=== PATIENT | male | born 1950 | race Caucasian/White ===

== ENCOUNTER 2016-11-10 13:15 | Emergency (ER) | payer OTHER ==
--- NOTE | 2016-11-10 13:50 | REP ---
Clinical: Acute cerebrovascular accident . Comparison: None . Findings: The ventricles, sulci, and cisterns are normal in position and appearance. Amaro-white differentiation is maintained. No acute intracranial hemorrhage, mass/mass effect, pathology or trauma/injury. No evidence for acute infarction. No extra-axial fluid collection. Calvarium is intact. Paranasal sinuses and mastoid air cells are clear. Impression: No evidence for acute intracranial pathology or trauma/injury. Signed by aLwson Serrano MD 11/10/2016 01:41 P
[2016-11-10 14:14] LABS: BASO % 0.7 % (0.0-1.0); EOS # 0.3 K/mm3 (0.0-0.50); EOS % 5.1 % (0.0-3.0); LARGE UNSTAINED CELL # 0.1 K/mm3 (0.0-0.4); LARGE UNSTAINED CELL % 1.9 % (0.0-4.0); LYMPH # 1.2 K/mm3 (1.5-4.5); LYMPH % 21.4 % (24.0-44.0); MEAN CORPUSCULAR HEMOGLOBIN 31.2 pg (27.0-33.0); MEAN CORPUSCULAR HGB CONC 34.8 g/dl (32.0-36.5); MEAN CORPUSCULAR VOLUME 89.8 fl (80.0-96.0); MONO # 0.3 K/mm3 (0.0-0.8); MONO % 5.1 % (0.0-5.0); NEUTROPHILS # 3.8 K/mm3 (1.8-7.7); NEUTROPHILS % 65.8 % (36.0-66.0); PLATELET COUNT, AUTOMATED 156 k/mm3 (150-450); RED CELL DISTRIBUTION WIDTH 12.4 % (11.5-14.5); WHITE BLOOD COUNT 5.8 K/mm3 (4.0-10.0)
[2016-11-10 14:27] LABS: ANION GAP 6 MEQ/L (8-16); BLOOD UREA NITROGEN 16 MG/DL (7-18); CALCIUM LEVEL 8.3 MG/DL (8.8-10.2); CARBON DIOXIDE LEVEL 29 MEQ/L (21-32); CHLORIDE LEVEL 106 MEQ/L (98-107); CREATININE FOR GFR 0.88 MG/DL (0.70-1.30); GLOMERULAR FILTRATION RATE > 60.0 (>49); GLUCOSE, FASTING 102 MG/DL (80-110); POTASSIUM SERUM 3.8 MEQ/L (3.5-5.1); SODIUM LEVEL 141 MEQ/L (136-145)
--- NOTE | 2016-11-10 18:24 | EDDOCDS ---
Physician Documentation [facility] Name: Jeancarlos Giles Age: 66 yrs Sex: Male : 1950 Arrival Date: 11/10/2016 Time: 13:15 Bed 19 Private MD: Gelacio Alvarez M.D. Disposition: 11/10 17:55 Critical Care: Critical care not applicable. pc Disposition: 11/10/16 17:56 Discharged to Home/Self Care. Impression: Paresthesia of skin. - Condition is Stable. - Discharge Instructions: Paresthesia. - Medication Reconciliation, Local Pharmacy Hours form. - Follow up: Gelacio Alvarez MD; When: Call to arrange an appointment; Reason: Continuance of care. - Problem is new. - Symptoms are resolved. HPI: 14:47 This 66 yrs old Male presents to ER via Ambulance with complaints of Weakness.pc 14:47 The history is obtained from the patient. pc 14:48 At approximately 11:30am, while helping lift his disabled 's leg into a chair, he pc felt his left arm go numb, described as pins and needles. He then thought his left upper arm felt swollen, then an "odd feeling" down his left torso and into his left leg. He denied having any chest pain, headache, visual changes, or any other symptom. The symptoms started to resolve after 60 minutes. He called for EMS shortly after that time. He arrives stating his symptoms are now all but gone, with only the feeling that his left arm feels swollen. 14:53 At their worst, the symptoms were moderate. In the emergency department, the symptoms pc are mild. The patient has not experienced similar symptoms in the past. The patient has been recently seen by their primary care provider, for a routine, regularly scheduled appointment. Historical: - Allergies: PENICILLINS; - Home Meds: 1. aspirin 81 mg Oral tab once daily (Last dose: 11/10/2016) 2. vitamin [id number] acid oral Unknown oral once daily 3. meloxicam 15 mg oral tab 1 tab once daily 4. 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 - Social history: Smoking status: Patient states was never smoker of tobacco. No barriers to communication noted, The patient speaks fluent Lebanese, Speaks appropriately for age. - Family history: Not pertinent. - Hospitalizations: : No recent hospitalization is reported. - : The pt / caregiver states he / she is not on anticoagulants. Home medication list is obtained from the patient, Home medication list is obtained from patients' pharmacy. - Exposure Risk Screening:: None identified. - Immunization history:: All immunizations up-to-date. - Social history:: the patient smokes cigarettes the patient does not drink alcohol. ROS: 14:53 All systems are negative except as listed. pc Exam: 14:53 General Appearance: no acute distress, alert. pc 14:53 EENT: normal eye inspection, ears, nose and throat normal, pharynx normal, mucous membranes moist 14:53 Neck: The exam reveals no acute abnormalities. ROM is normal and painless. No nuchal rigidity is noted.. 14:53 Respiratory: no respiratory distress, normal breath sounds. 14:53 CVS: regular pulse rate, regular rhythm, normal S1 and S2, no murmurs, strong peripheral pulses, normal capillary refill. 14:53 Abdomen: soft, non-tender, no organomegaly, normal bowel sounds. 14:53 Back: normal inspection. 14:53 Skin: skin color is normal, warm, dry. 14:53 Extremities: The extremities have a grossly normal appearance, are non-tender, without acute ROM abnormalities. 14:53 Neuro: oriented x 3, cranial nerves normal as tested, no motor deficits, no sensory deficits, Cerebellar function: normal finger to nose testing, Heel to wesley testing is normal, Romberg testing is negative, Deep tendon reflexes are normal, NIHSS score of 0. 14:53 Psych: normal mood. Vital Signs: 13:18 BP 148 / 76; Pulse 83; Resp 20; Temp 96.6(O); Pulse Ox 99% on R/A; Weight 70.31 kg / ead 155.01 lbs (R); Height 5 ft. 4 in. (162.56 cm) (R); Pain 0/10; 13:37 BP 138 / 66 (auto/); ead 13:38 Pulse 78 MON; Pulse Ox 99% on R/A; ead 13:52 BP 130 / 69 (auto/); ead 13:53 Pulse 74 MON; Pulse Ox 98% ; ead 14:07 BP 127 / 69 (auto/); ead 14:08 Pulse 80 MON; Resp 18; Pulse Ox 98% on R/A; ead 14:22 BP 118 / 68 (auto/); ead 14:23 Pulse 72 MON; Pulse Ox 98% ; ead 14:37 BP 118 / 67 (auto/); ead 14:38 Pulse 78 MON; Pulse Ox 98% ; ead 14:52 BP 121 / 69 (auto/); ead 14:53 Pulse 76 MON; Resp 20; Pulse Ox 98% on R/A; ead 14:57 Pulse 76 MON; Pulse Ox 99% ; ead 16:13 BP 125 / 67 (auto/); ead 16:14 Pulse 76 MON; Resp 16; Pulse Ox 99% on R/A; ead 16:28 BP 114 / 68 (auto/); ead 16:28 Pulse 74 MON; Pulse Ox 98% ; ead 16:43 BP 116 / 68 (auto/); ead 16:43 Pulse 76 MON; Resp 18; Pulse Ox 98% on R/A; ead 16:58 BP 122 / 65 (auto/); ead 16:58 Pulse 72 MON; Pulse Ox 98% ; ead 17:13 BP 113 / 60 (auto/); ead 17:13 Pulse 82 MON; Resp 16; Pulse Ox 98% on R/A; ead 17:28 BP 111 / 65 (auto/); ead 17:29 Pulse 78 MON; Pulse Ox 97% ; ead 18:22 BP 117 / 68; Pulse 74; Resp 18; Temp 97.1(O); Pulse Ox 98% on R/A; Pain 0/10; ead 13:18 Body Mass Index 26.61 (70.31 kg, 162.56 cm) ead MDM: 13:27 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 pc 13:27 IV Saline Lock ordered. pc 13:27 CT Head Without Contrast Ordered. EDMS 13:28 ECG WITH READING ER PHYS+CARDIAG ordered. EDMS 13:28 CBC with Diff Ordered. EDMS 13:28 MED Profile Ordered. EDMS 13:28 CIP Ordered. EDMS 13:28 Troponin Ordered. EDMS 14:45 CBC with Diff Reviewed. pc 14:45 MED Profile Reviewed. pc 14:45 CIP Reviewed. pc 14:45 Troponin Reviewed. pc 14:45 CT Head Without Contrast Reviewed. pc 14:46 MRI Screening Tool - Place on chart, inform RN ordered. pc 14:47 -MRA-Brain without contrast Ordered. EDMS 14:47 -MRI-Brain without Ordered. EDMS 14:53 Differential Diagnosis: TIA v CVA. Plan: labs, CT, EKG. Test interpretation: EKG. pc 14:56 MRI Screening Tool - Place on chart, inform RN complete. ead 16:17 Ambulate Patient to Assess Patient Safety ordered. pc 16:32 Redraw CIP &Troponin (put time in details section) ordered. pc 16:32 Repeat EKG (put time details section) ordered. pc 16:33 Financial registration complete. kf3 16:34 Redraw CIP &Troponin (put time in details section) complete. lbd 16:35 Repeat EKG (put time details section) complete. lbd 16:37 ECG WITH READING ER PHYS ordered. EDMS 16:38 CARDIAC MARKER PANEL Ordered. EDMS 17:04 [facility] Payment Agreement was scanned into [employer] and attached to record. kf3 17:37 Test interpretation: EKG. pc 17:55 CARDIAC MARKER PANEL Reviewed. pc 17:55 Data reviewed: old medical records, vital signs, nurses notes, EKG(s), lab test pc results, all radiology studies and available results. Test interpretation: LAB - all labs as ordered have been reviewed, interpreted and considered in the overall management of the clinical presentation; interpreted by Radiologist and personally reviewed, Head CT; no acute disease, MRI - interpreted by Radiologist and personally reviewed, Brain (MRI) - No acute disease Brain (MRA) - Normal. The patient has been re-examined and re-evaluated. The patient's symptoms have resolved after treatment. Physician consultation: Dr. Virginie Fields MD regarding patient's condition, and advises the medications/treatment as provided. Disposition: The historical points, examination findings, and any diagnostic results supporting the provided diagnosis, were discussed with the patient or legal guardian. The need for outpatient follow up with the provider listed on their discharge instructions was discussed. They were encouraged to return to [facility], or the nearest ED, if symptoms worsen/persist, or for any other questions/concerns. EC:53 Rate is 73 beats/min. Rhythm is regular, Normal Sinus Rhythm. QRS [place] is Normal. [place] pc interval is normal. QRS interval is normal. QT interval is normal. No Q waves. T waves are Normal. No ST changes noted. Clinical impression: Normal Sinus Rhythm. 17:37 Rate is 74 beats/min. Rhythm is regular, Normal Sinus Rhythm. QRS [place] is Normal. LA pc interval is normal. QRS interval is normal. QT interval is normal. No Q waves. T waves are Normal. No ST changes noted. Clinical impression: Normal Sinus Rhythm. Signatures: Dispatcher [employer] EDMS Regis Blandon MD MD pc Daly, Linda, [employer] lbd Avni Johnson, Reg Reg kf3 Teagan Salas,RN RN willam The chart was reviewed and I authenticate all verbal orders and agree with the evaluation and treatment provided.Corrections: (The following items were deleted from the chart) 14:56 14:48 At approximately 11:30am, while helping lift his disabled 's leg into a pc chair, he felt his left arm go numb, described as pins and needles pc Attachments: 17:04 [facility] Payment Agreement kf3 [id number]
--- NOTE | 2016-11-10 18:24 | EDDOCDS ---
Nurse's Notes [facility] Name: Jeancarlos Giles Age: 66 yrs Sex: Male : 1950 Arrival Date: 11/10/2016 Time: 13:15 Bed 19 Private MD: Gelacio Alvarez M.D. Diagnosis: Paresthesia of skin Presentation: 11/10 13:18 Presenting complaint: EMS states: left sided tingling, numbness, x 1 hour. report ead negative on stroke scale. denies chest pain/sob. Blood glucose of 120. Denies medical hx. The last date and time the patient was known to be well was was at 12:20 on November 10, 2016. No acute neurological deficit is noted. The patients blood glucose was checked before arriving to the hospital and was found to be normal. Adult Sepsis Screening: The patient does not have new or worsening altered mentation. Patient's respiratory rate is less than 22. Systolic blood pressure is greater than 100. Patient has a qSOFA score of 0- Negative Sepsis Screen. Suicide/Homicide risk assessment- the patient denies having any suicidal and/or homicidal ideations and does not present with any other emotional, behavioral or mental health complaints. Status: Patient is not a patient services coordinator or dependent. Transition of care: patient was not received from another setting of care. 13:18 Method Of Arrival: Ambulance ead 13:18 Acuity: NATHAN Level 3 ead Triage Assessment: 13:18 The onset of the patients symptoms was less than three hours ago. General: Appears in ead no apparent distress, comfortable, well nourished, well groomed, Behavior is appropriate for age, cooperative, pleasant. Pain: Denies pain. The patient is triaged at the bedside. See Assessment in Nurses Notes section of ED record. Neurological: Level of Consciousness is awake, alert, obeys commands, Oriented to person, place, time, Auto Servicer are equal bilaterally Moves all extremities. Full function in left in right hand's) arm(s) leg(s) foot/feet from shoulders down, Speech is normal, Facial symmetry appears normal, pt denies numbness to left side. . Neurological: Denies weakness headache Reports blurred vision dizziness, prior to arrival, reports dizziness has resolved.. Cardiovascular: Chest pain is denied. Respiratory: Airway is patent Respiratory effort is even, unlabored, Denies cough, shortness of breath. GI: Abdomen is non- distended Denies nausea, vomiting, pain. Derm: Skin is pink, warm & dry. Historical: - Allergies: PENICILLINS; - Home Meds: 1. aspirin 81 mg Oral tab once daily (Last dose: 11/10/2016) 2. vitamin [id number] acid oral Unknown oral once daily 3. meloxicam 15 mg oral tab 1 tab once daily 4. 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 - Social history: Smoking status: Patient states was never smoker of tobacco. No barriers to communication noted, The patient speaks fluent Lao, Speaks appropriately for age. - Family history: Not pertinent. - Hospitalizations: : No recent hospitalization is reported. - : The pt / caregiver states he / she is not on anticoagulants. Home medication list is obtained from the patient, Home medication list is obtained from patients' pharmacy. - Exposure Risk Screening:: None identified. - Immunization history:: All immunizations up-to-date. - Social history:: the patient smokes cigarettes the patient does not drink alcohol. Screenin:35 Screening information is obtained from the patient. Fall risk: No risks identified. ead Assistance ADL's: requires no assistance with activities of daily living. Abuse/DV Screen: The patient / caregiver reports he/she is: not in a situation that causes fear, pain or injury. Nutritional screening: No deficits noted. Advance Directives: Currently, there is no health care proxy. There is no active DNR order. There is no living will. There is no Power of Forklift Picker. home support is adequate. Assessment: 14:30 General: Appears in no apparent distress, comfortable, Behavior is appropriate for age, ead cooperative, pleasant. Neurological: Level of Consciousness is awake, alert, obeys commands, Oriented to person, place, time, Moves all extremities. Speech is normal, Facial symmetry appears normal, Reports headache. Cardiovascular: Capillary refill < 3 seconds in bilateral fingers Heart tones S1 S2 present Rhythm is sinus rhythm No ectopy. Chest pain is denied. Respiratory: Airway is patent Respiratory effort is even, unlabored. Respiratory: Breath sounds are clear bilaterally. Denies cough, shortness of breath. GI: Denies nausea, vomiting, pain. Derm: Skin is pink, warm & dry. 16:10 General: Appears in no apparent distress, comfortable, Behavior is appropriate for age, ead cooperative, pleasant. Neurological: Level of Consciousness is awake, alert, obeys commands, Oriented to person, place, time, Reports headache "is letting up". Neurological: Moves all extremities. Speech is normal, Facial symmetry appears normal, denies numbness/tingling. Cardiovascular: Rhythm is sinus rhythm No ectopy. Chest pain is denied. Respiratory: Airway is patent Respiratory effort is even, unlabored. Derm: Skin is pink, warm & dry. 16:40 General: Pt ambulated in hallway without difficulty. Denies weakness/dizziness, denies ead numbness/tingling. Pt returned to room. Call howe within reach, will continue to monitor. Pt updated of plan for repeat EKG and lab work at 1730.. 17:24 General: Appears in no apparent distress, comfortable, Behavior is appropriate for age, ead cooperative. Neurological: Level of Consciousness is awake, alert, obeys commands, Oriented to person, place, time, Moves all extremities. Speech is normal, Facial symmetry appears normal. Respiratory: Airway is patent Respiratory effort is even, unlabored. Derm: Skin is pink, warm & dry. 18:22 General: Appears in no apparent distress, comfortable, Behavior is appropriate for age, ead cooperative, pleasant. Pain: Denies pain. Neurological: Level of Consciousness is awake, alert, obeys commands, Oriented to person, place, time, Moves all extremities. Gait is steady, Speech is normal, Facial symmetry appears normal. Respiratory: Airway is patent Respiratory effort is even, unlabored. Derm: Skin is pink, warm & dry. Vital Signs: 13:18 BP 148 / 76; Pulse 83; Resp 20; Temp 96.6(O); Pulse Ox 99% on R/A; Weight 70.31 kg (R); ead Height 5 ft. 4 in. (162.56 cm) (R); Pain 0/10; 13:37 BP 138 / 66 (auto/); ead 13:38 Pulse 78 MON; Pulse Ox 99% on R/A; ead 13:52 BP 130 / 69 (auto/); ead 13:53 Pulse 74 MON; Pulse Ox 98% ; ead 14:07 BP 127 / 69 (auto/); ead 14:08 Pulse 80 MON; Resp 18; Pulse Ox 98% on R/A; ead 14:22 BP 118 / 68 (auto/); ead 14:23 Pulse 72 MON; Pulse Ox 98% ; ead 14:37 BP 118 / 67 (auto/); ead 14:38 Pulse 78 MON; Pulse Ox 98% ; ead 14:52 BP 121 / 69 (auto/); ead 14:53 Pulse 76 MON; Resp 20; Pulse Ox 98% on R/A; ead 14:57 Pulse 76 MON; Pulse Ox 99% ; ead 16:13 BP 125 / 67 (auto/); ead 16:14 Pulse 76 MON; Resp 16; Pulse Ox 99% on R/A; ead 16:28 BP 114 / 68 (auto/); ead 16:28 Pulse 74 MON; Pulse Ox 98% ; ead 16:43 BP 116 / 68 (auto/); ead 16:43 Pulse 76 MON; Resp 18; Pulse Ox 98% on R/A; ead 16:58 BP 122 / 65 (auto/); ead 16:58 Pulse 72 MON; Pulse Ox 98% ; ead 17:13 BP 113 / 60 (auto/); ead 17:13 Pulse 82 MON; Resp 16; Pulse Ox 98% on R/A; ead 17:28 BP 111 / 65 (auto/); ead 17:29 Pulse 78 MON; Pulse Ox 97% ; ead 18:22 BP 117 / 68; Pulse 74; Resp 18; Temp 97.1(O); Pulse Ox 98% on R/A; Pain 0/10; ead 13:18 Body Mass Index 26.61 (70.31 kg, 162.56 cm) ead Vitals: 13:15 Glucose Measurement D-stick done by EMS. Log In Time N/A - ambulance arrival. ead ED Course: 13:17 Patient visited by Tahira Ortiz, Bunker Worker. lbd 13:17 Gelacio Alvarez is Private Physician. lbd 13:17 Teagan Salas,RN is Primary Nurse. lbd 13:17 Patient moved to Waiting lbd 13:17 Patient moved to 19 lbd 13:18 Regis Blandon MD is Attending Physician. pc 13:22 Triage Initiated ead 13:26 Patient visited by Regis Blandon MD. pc 13:44 Patient visited by Teagan Salas,STEPHEN. ead 13:44 Troponin Sent. ead 13:44 CIP Sent. ead 13:44 MED Profile Sent. ead 13:44 CBC with Diff Sent. ead 13:44 Inserted saline lock: 18 gauge in right antecubital area and blood collected. The ead patient tolerated the procedure well. 14:00 The patient / caregiver is instructed regarding the plan of care and ED course. Patient ead has correct armband on for positive identification. Placed in gown. Bed in low position. Call light in reach. Side rails up X 1. automotive light mechanic on. Pulse ox on. NIBP on. 14:00 EKG done. (by ED staff). Reviewed by Regis Blandon MD. ead 14:27 CT Head Without Contrast Returned. EDMS 14:38 Patient visited by Teagan Salas,RN. ead 14:57 Patient moved to MRI bcj 15:57 Patient visited by Teagan Salas,RN. ead 15:57 Patient moved to 19 ead 16:16 Patient visited by Teagan Salas,STEPHEN. ead 16:33 Patient visited by Teagan Salas,STEPHEN. ead 17:01 Patient name changed from Jeancarlos\\S\\\\S\\Tisha\\S\\ to Jeancarlos\\S\\ \\S\\Tisha. EDMS 17:04 [facility] Payment Agreement was scanned into [employer] and attached to record. kf3 17:20 EKG done. (by ED staff). Reviewed by Regis Blandon MD. jrd 17:24 Patient visited by Teagan Salas,STEPHEN. ead 17:24 CARDIAC MARKER PANEL Sent. ead 17:56 Gelacio Alvarez MD is Referral Physician. pc 18:22 Discontinued lock intact, bleeding controlled, pressure dressing applied, No ead redness/swelling at site. No procedures done that require assistance. Order Results: Lab Order: CBC with Diff; SPEC'M 11/10/16 13:42 Test: WHITE BLOOD COUNT; Value: 5.8; Range: 4.0-10.0; Units: K/mm3; Status: F Test: RED BLOOD COUNT; Value: 4.56; Range: 4.30-6.10; Units: M/mm3; Status: F Test: HEMOGLOBIN; Value: 14.2; Range: 14.0-18.0; Units: g/dl; Status: F Test: HEMATOCRIT; Value: 40.9; Range: 42.0-52.0; Abnormal: Below low normal; Units: %; Status: F Test: MEAN CORPUSCULAR VOLUME; Value: 89.8; Range: 80.0-96.0; Units: fl; Status: F Test: MEAN CORPUSCULAR HEMOGLOBIN; Value: 31.2; Range: 27.0-33.0; Units: pg; Status: F Test: MEAN CORPUSCULAR HGB CONC; Value: 34.8; Range: 32.0-36.5; Units: g/dl; Status: F Test: RED CELL DISTRIBUTION WIDTH; Value: 12.4; Range: 11.5-14.5; Units: %; Status: F Test: PLATELET COUNT, AUTOMATED; Value: 156; Range: 150-450; Units: k/mm3; Status: F Test: NEUTROPHILS %; Value: 65.8; Range: 36.0-66.0; Units: %; Status: F Test: LYMPH %; Value: 21.4; Range: 24.0-44.0; Abnormal: Below low normal; Units: %; Status: F Test: MONO %; Value: 5.1; Range: 0.0-5.0; Abnormal: Above high normal; Units: %; Status: F Test: EOS %; Value: 5.1; Range: 0.0-3.0; Abnormal: Above high normal; Units: %; Status: F Test: BASO %; Value: 0.7; Range: 0.0-1.0; Units: %; Status: F Test: LARGE UNSTAINED CELL %; Value: 1.9; Range: 0.0-4.0; Units: %; Status: F Test: NEUTROPHILS #; Value: 3.8; Range: 1.8-7.7; Units: K/mm3; Status: F Test: LYMPH #; Value: 1.2; Range: 1.5-4.5; Abnormal: Below low normal; Units: K/mm3; Status: F Test: MONO #; Value: 0.3; Range: 0.0-0.8; Units: K/mm3; Status: F Test: EOS #; Value: 0.3; Range: 0.0-0.50; Units: K/mm3; Status: F Test: BASO #; Value: 0.0; Range: 0.0-0.2; Units: K/mm3; Status: F Test: LARGE UNSTAINED CELL #; Value: 0.1; Range: 0.0-0.4; Units: K/mm3; Status: F Lab Order: MED Profile; SPEC'M 11/10/16 13:42 Test: GLUCOSE, FASTING; Value: 102; Range: 80-110; Units: MG/DL; Status: F Test: BLOOD UREA NITROGEN; Value: 16; Range: 7-18; Units: MG/DL; Status: F Test: CREATININE FOR GFR; Value: 0.88; Range: 0.70-1.30; Units: MG/DL; Status: F Test: GLOMERULAR FILTRATION RATE; Value: > 60.0; Range: >49; Status: F Test: SODIUM LEVEL; Value: 141; Range: 136-145; Units: MEQ/L; Status: F Test: POTASSIUM SERUM; Value: 3.8; Range: 3.5-5.1; Units: MEQ/L; Status: F Test: CHLORIDE LEVEL; Value: 106; Range: 98-107; Units: MEQ/L; Status: F Test: CARBON DIOXIDE LEVEL; Value: 29; Range: 21-32; Units: MEQ/L; Status: F Test: ANION GAP; Value: 6; Range: 8-16; Abnormal: Below low normal; Units: MEQ/L; Status: F Test: CALCIUM LEVEL; Value: 8.3; Range: 8.8-10.2; Abnormal: Below low normal; Units: MG/DL; Status: F Test Note: ; Units are mL/min/1.73 m2 Chronic Kidney Disease Staging per NKF: Stage I & II GFR >=60 Normal to Mildly Decreased Stage III GFR 30-59 Moderately Decreased Stage IV GFR 15-29 Severely Decreased Stage V GFR <15 Very Little GFR Left ESRD GFR <15 on ARCHEOLOGIST CLASSICAL Lab Order: CIP; SPEC'M 11/10/16 13:42 Test: CPK CREATINE PHOSPHOKINASE; Value: 51; Range: 39-308; Units: U/L; Status: F Test: CK-MB VALUE MASS; Value: 1.0; Range: 0.0-3.6; Units: NG/ML; Status: F Test: MB/CK RELATIVE INDEX; Value: 1.96; Range: < OR =4; Status: F Test Note: ; DIAGNOSIS CRITERIA MMB ng/ml Relative Index (RI) NON-AMI < or = 5 N/A AMARO ZONE > 5 < or = 4 AMI > 5 > 4 Lab Order: Troponin; [facility] 11/10/16 13:42 Test: TROPONIN I; Value: < 0.02; Range: < 0.10; Units: NG/ML; Status: F Test Note: ; Troponin I Reference Interval for [place] LOCI: 99th Percentile= 0.00-0.045 ng/ml Risk Stratification: <= 0.10 ng/ml Decreased Risk for Adverse Clinical Events. 0.10-1.50 ng/ml Increased Risk for Adverse Clinical Events. Evaluation of additional criterion and/or repeat testing in 2-6 hours is suggested to rule out myocardial damage. >= 1.50 ng/ml Indicative of Myocardial Injury. Lab Order: CARDIAC MARKER PANEL; [facility] 11/10/16 17:23 Test: CPK CREATINE PHOSPHOKINASE; Value: 48; Range: 39-308; Units: U/L; Status: F Test: CK-MB VALUE MASS; Value: 1.0; Range: 0.0-3.6; Units: NG/ML; Status: F Test: MB/CK RELATIVE INDEX; Value: 2.08; Range: < OR =4; Status: F Test: TROPONIN I; Value: < 0.02; Range: < 0.10; Units: NG/ML; Status: F Test Note: ; DIAGNOSIS CRITERIA MMB ng/ml Relative Index (RI) NON-AMI < or = 5 N/A AMARO ZONE > 5 < or = 4 AMI > 5 > 4 Radiology Order: CT Head Without Contrast Test: CT Head Without Contrast REASON FOR EXAMINATION: CVA <4.5hrs; Clinical: Acute cerebrovascular accident .; ; Comparison: None .; ; Findings:; The ventricles, sulci, and cisterns are normal in position and appearance.; Amaro-white differentiation is maintained. No acute intracranial hemorrhage,; mass/mass effect, pathology or trauma/injury. No evidence for acute infarction.; No extra-axial fluid collection. Calvarium is intact. Paranasal sinuses and; mastoid air cells are clear.; ; Impression:; ; No evidence for acute intracranial pathology or trauma/injury.; ; ; Signed by; Lawson Serrano MD 11/10/2016 01:41 P; Outcome: 17:35 CT Study completed. MRI Study completed. ead 17:56 Discharge ordered by Provider. pc 18:23 Discharge Assessment: Patient awake and alert. obeys commands, Oriented to person, ead place and time. patient administered narcotics - no. The following High Risk Discharge criteria are identified: None. Discharged to home ambulatory, with family. Condition: improved. Discharge instructions given to patient, Instructed on discharge instructions, follow up and referral plans. Demonstrated understanding of instructions, Pt was receptive of discharge instructions/ teaching. Property sent home with patient. 18:23 Patient left the ED. ead Signatures: Dispatcher [employer] EDMS Regis Blandon MD MD pc Daly, Linda, Bunker Worker Unit lbd Xander Romero, STEPHEN RN Avni Wood, Reg Reg kf3 Teagan Salas,Maurizio Carrasco RN, HEAD GREASE MAKER HEAD GREASE MAKER jrd MTDD
--- NOTE | 2016-11-11 07:21 | ECGEPIP ---
Stationary ECG Study [facility] - ED Test Date: 2016-11-10 Pat Name: LEA MALAVE Department: Room: - Gender: M Scale Technician: willam : 1950 Requested By: Regis Moctezuma Order Number: [id number] Reading MD: Regis Blandon Measurements Intervals [place] Rate: 73 P: 57 NC: 182 QRS: 12 QRSD: 77 T: 41 QT: 351 QTc: 387 Interpretive Statements SINUS RHYTHM POSSIBLE LAE NO PRIORS Electronically Signed On 11-11-2016 7:21:08 EST by Regis Blandon
--- NOTE | 2016-11-11 07:24 | ECGEPIP ---
Stationary ECG Study [facility] - ED Test Date: 2016-11-10 Pat Name: LEA MALAVE Department: Room: - Gender: M Oriental Medicine Practitioner: JACQUELINE : 1950 Requested By: Regis Moctezuma Order Number: [id number] Reading MD: Regis Blandon Measurements Intervals [place] Rate: 74 P: 50 WI: 157 QRS: 17 QRSD: 78 T: 50 QT: 363 QTc: 405 Interpretive Statements SINUS RHYTHM Electronically Signed On 11-11-2016 7:24:02 EST by Regis Blandon
--- NOTE | 2016-11-11 08:59 | REP ---
MRA BRAIN WITHOUT CONTRAST: HISTORY: Infarction. 3D TOF MR angiography was performed at the level of the [place]. There is no aneurysm or arteriovenous malformation. Mild atherosclerotic disease involves the cavernous internal carotid arteries. Major intracranial vessels are patent. The left vertebral artery is dominant. IMPRESSION: 1. There is no aneurysm or arteriovenous malformation. 2. Atherosclerotic disease as described above. Signed by Daniel Florez MD 11/13/2016 08:41 A
--- NOTE | 2016-11-11 09:05 | REP ---
MRI BRAIN WITHOUT CONTRAST: HISTORY: Infarction. COMPARISON: CT 11/10/2016 Scattered punctate areas of increased signal intensity on T2-weighted images are present in the periventricular and subcortical white matter. This represents small vessel ischemic disease. There is no intraparenchymal hemorrhage, infarct, mass or midline shift. The ventricular system and cortical sulci are dilated consistent with minimal volume loss. There is no extracerebral collection. Mucosal thickening is present in the ethmoid, maxillary and sphenoid sinuses. IMPRESSION: 1. Minimal small vessel ischemic disease. 2. Minimal volume loss. Signed by Daniel Florez MD 11/13/2016 08:42 A
--- NOTE | 2016-11-12 19:24 | EDDOCDS ---
Nurse's Notes [facility] Name: Jeancarlos Malave Age: 66 yrs Sex: Male : 1950 Arrival Date: 11/10/2016 Time: 13:15 Bed 19 Private MD: Gelacio Alvarez M.D. Diagnosis: Paresthesia of skin Presentation: 11/10 13:18 Presenting complaint: EMS states: left sided tingling, numbness, x 1 hour. report ead negative on stroke scale. denies chest pain/sob. Blood glucose of 120. Denies medical hx. The last date and time the patient was known to be well was was at 12:20 on November 10, 2016. No acute neurological deficit is noted. The patients blood glucose was checked before arriving to the hospital and was found to be normal. Adult Sepsis Screening: The patient does not have new or worsening altered mentation. Patient's respiratory rate is less than 22. Systolic blood pressure is greater than 100. Patient has a qSOFA score of 0- Negative Sepsis Screen. Suicide/Homicide risk assessment- the patient denies having any suicidal and/or homicidal ideations and does not present with any other emotional, behavioral or mental health complaints. Status: Patient is not a supervisor self service store or dependent. Transition of care: patient was not received from another setting of care. 13:18 Method Of Arrival: Ambulance ead 13:18 Acuity: NATHAN Level 3 ead Triage Assessment: 13:18 The onset of the patients symptoms was less than three hours ago. General: Appears in ead no apparent distress, comfortable, well nourished, well groomed, Behavior is appropriate for age, cooperative, pleasant. Pain: Denies pain. The patient is triaged at the bedside. See Assessment in Nurses Notes section of ED record. Neurological: Level of Consciousness is awake, alert, obeys commands, Oriented to person, place, time, Brake Drum Molder are equal bilaterally Moves all extremities. Full function in left in right hand's) arm(s) leg(s) foot/feet from shoulders down, Speech is normal, Facial symmetry appears normal, pt denies numbness to left side. . Neurological: Denies weakness headache Reports blurred vision dizziness, prior to arrival, reports dizziness has resolved.. Cardiovascular: Chest pain is denied. Respiratory: Airway is patent Respiratory effort is even, unlabored, Denies cough, shortness of breath. GI: Abdomen is non- distended Denies nausea, vomiting, pain. Derm: Skin is pink, warm & dry. Historical: - Allergies: PENICILLINS; - Home Meds: 1. aspirin 81 mg Oral tab once daily (Last dose: 11/10/2016) 2. vitamin M11-wufxg acid oral Unknown oral once daily 3. meloxicam 15 mg oral tab 1 tab once daily 4. 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 - Social history: Smoking status: Patient states was never smoker of tobacco. No barriers to communication noted, The patient speaks fluent Upper Sorbian, Speaks appropriately for age. - Family history: Not pertinent. - Hospitalizations: : No recent hospitalization is reported. - : The pt / caregiver states he / she is not on anticoagulants. Home medication list is obtained from the patient, Home medication list is obtained from patients' pharmacy. - Exposure Risk Screening:: None identified. - Immunization history:: All immunizations up-to-date. - Social history:: the patient smokes cigarettes the patient does not drink alcohol. Screenin:35 Screening information is obtained from the patient. Fall risk: No risks identified. ead Assistance ADL's: requires no assistance with activities of daily living. Abuse/DV Screen: The patient / caregiver reports he/she is: not in a situation that causes fear, pain or injury. Nutritional screening: No deficits noted. Advance Directives: Currently, there is no health care proxy. There is no active DNR order. There is no living will. There is no Power of Tracing Lathe Set Up Operator. home support is adequate. Assessment: 14:30 General: Appears in no apparent distress, comfortable, Behavior is appropriate for age, ead cooperative, pleasant. Neurological: Level of Consciousness is awake, alert, obeys commands, Oriented to person, place, time, Moves all extremities. Speech is normal, Facial symmetry appears normal, Reports headache. Cardiovascular: Capillary refill < 3 seconds in bilateral fingers Heart tones S1 S2 present Rhythm is sinus rhythm No ectopy. Chest pain is denied. Respiratory: Airway is patent Respiratory effort is even, unlabored. Respiratory: Breath sounds are clear bilaterally. Denies cough, shortness of breath. GI: Denies nausea, vomiting, pain. Derm: Skin is pink, warm & dry. 16:10 General: Appears in no apparent distress, comfortable, Behavior is appropriate for age, ead cooperative, pleasant. Neurological: Level of Consciousness is awake, alert, obeys commands, Oriented to person, place, time, Reports headache "is letting up". Neurological: Moves all extremities. Speech is normal, Facial symmetry appears normal, denies numbness/tingling. Cardiovascular: Rhythm is sinus rhythm No ectopy. Chest pain is denied. Respiratory: Airway is patent Respiratory effort is even, unlabored. Derm: Skin is pink, warm & dry. 16:40 General: Pt ambulated in hallway without difficulty. Denies weakness/dizziness, denies ead numbness/tingling. Pt returned to room. Call howe within reach, will continue to monitor. Pt updated of plan for repeat EKG and lab work at 1730.. 17:24 General: Appears in no apparent distress, comfortable, Behavior is appropriate for age, ead cooperative. Neurological: Level of Consciousness is awake, alert, obeys commands, Oriented to person, place, time, Moves all extremities. Speech is normal, Facial symmetry appears normal. Respiratory: Airway is patent Respiratory effort is even, unlabored. Derm: Skin is pink, warm & dry. 18:22 General: Appears in no apparent distress, comfortable, Behavior is appropriate for age, ead cooperative, pleasant. Pain: Denies pain. Neurological: Level of Consciousness is awake, alert, obeys commands, Oriented to person, place, time, Moves all extremities. Gait is steady, Speech is normal, Facial symmetry appears normal. Respiratory: Airway is patent Respiratory effort is even, unlabored. Derm: Skin is pink, warm & dry. Vital Signs: 13:18 BP 148 / 76; Pulse 83; Resp 20; Temp 96.6(O); Pulse Ox 99% on R/A; Weight 70.31 kg (R); ead Height 5 ft. 4 in. (162.56 cm) (R); Pain 0/10; 13:37 BP 138 / 66 (auto/); ead 13:38 Pulse 78 MON; Pulse Ox 99% on R/A; ead 13:52 BP 130 / 69 (auto/); ead 13:53 Pulse 74 MON; Pulse Ox 98% ; ead 14:07 BP 127 / 69 (auto/); ead 14:08 Pulse 80 MON; Resp 18; Pulse Ox 98% on R/A; ead 14:22 BP 118 / 68 (auto/); ead 14:23 Pulse 72 MON; Pulse Ox 98% ; ead 14:37 BP 118 / 67 (auto/); ead 14:38 Pulse 78 MON; Pulse Ox 98% ; ead 14:52 BP 121 / 69 (auto/); ead 14:53 Pulse 76 MON; Resp 20; Pulse Ox 98% on R/A; ead 14:57 Pulse 76 MON; Pulse Ox 99% ; ead 16:13 BP 125 / 67 (auto/); ead 16:14 Pulse 76 MON; Resp 16; Pulse Ox 99% on R/A; ead 16:28 BP 114 / 68 (auto/); ead 16:28 Pulse 74 MON; Pulse Ox 98% ; ead 16:43 BP 116 / 68 (auto/); ead 16:43 Pulse 76 MON; Resp 18; Pulse Ox 98% on R/A; ead 16:58 BP 122 / 65 (auto/); ead 16:58 Pulse 72 MON; Pulse Ox 98% ; ead 17:13 BP 113 / 60 (auto/); ead 17:13 Pulse 82 MON; Resp 16; Pulse Ox 98% on R/A; ead 17:28 BP 111 / 65 (auto/); ead 17:29 Pulse 78 MON; Pulse Ox 97% ; ead 18:22 BP 117 / 68; Pulse 74; Resp 18; Temp 97.1(O); Pulse Ox 98% on R/A; Pain 0/10; ead 13:18 Body Mass Index 26.61 (70.31 kg, 162.56 cm) ead Vitals: 13:15 Glucose Measurement D-stick done by EMS. Log In Time N/A - ambulance arrival. ead ED Course: 13:17 Patient visited by Tahira Ortiz, Oracle Database Developer. lbd 13:17 Gelacio Alvarez is Private Physician. lbd 13:17 Teagan Salas,RN is Primary Nurse. lbd 13:17 Patient moved to Waiting lbd 13:17 Patient moved to 19 lbd 13:18 Regis Blandon MD is Attending Physician. pc 13:22 Triage Initiated ead 13:26 Patient visited by Regis Blandon MD. pc 13:44 Patient visited by Teagan Salas,STEPHEN. ead 13:44 Troponin Sent. ead 13:44 CIP Sent. ead 13:44 MED Profile Sent. ead 13:44 CBC with Diff Sent. ead 13:44 Inserted saline lock: 18 gauge in right antecubital area and blood collected. The ead patient tolerated the procedure well. 14:00 The patient / caregiver is instructed regarding the plan of care and ED course. Patient ead has correct armband on for positive identification. Placed in gown. Bed in low position. Call light in reach. Side rails up X 1. senior cost analyst on. Pulse ox on. NIBP on. 14:00 EKG done. (by ED staff). Reviewed by Regis Blandon MD. ead 14:27 CT Head Without Contrast Returned. EDMS 14:38 Patient visited by Teagan Salas,RN. ead 14:57 Patient moved to MRI bcj 15:57 Patient visited by Teagan Salas,RN. ead 15:57 Patient moved to 19 ead 16:16 Patient visited by Teagan Salas,RN. ead 16:33 Patient visited by Teagan Salas,STEPHEN. ead 17:01 Patient name changed from Jeancarlos\\S\\\\S\\Tisha\\S\\ to Jeancarlos\\S\\ \\S\\Tisha. EDMS 17:04 [facility] Payment Agreement was scanned into [email or web address] and attached to record. kf3 17:20 EKG done. (by ED staff). Reviewed by Regis Blandon MD. jrd 17:24 Patient visited by Teagan Salas,RN. ead 17:24 CARDIAC MARKER PANEL Sent. ead 17:56 Gelacio Alvarez MD is Referral Physician. pc 18:22 Discontinued lock intact, bleeding controlled, pressure dressing applied, No ead redness/swelling at site. No procedures done that require assistance. 11/11 07:31 EKG-ADULT Returned. EDMS 07:31 ECG WITH READING ER PHYS Returned. EDMS 09:19 -MRA-Brain without contrast Returned. EDMS 09:19 -MRI-Brain without Returned. EDMS Order Results: Lab Order: CBC with Diff; SPEC'M 11/10/16 13:42 Test: WHITE BLOOD COUNT; Value: 5.8; Range: 4.0-10.0; Units: K/mm3; Status: F Test: RED BLOOD COUNT; Value: 4.56; Range: 4.30-6.10; Units: M/mm3; Status: F Test: HEMOGLOBIN; Value: 14.2; Range: 14.0-18.0; Units: g/dl; Status: F Test: HEMATOCRIT; Value: 40.9; Range: 42.0-52.0; Abnormal: Below low normal; Units: %; Status: F Test: MEAN CORPUSCULAR VOLUME; Value: 89.8; Range: 80.0-96.0; Units: fl; Status: F Test: MEAN CORPUSCULAR HEMOGLOBIN; Value: 31.2; Range: 27.0-33.0; Units: pg; Status: F Test: MEAN CORPUSCULAR HGB CONC; Value: 34.8; Range: 32.0-36.5; Units: g/dl; Status: F Test: RED CELL DISTRIBUTION WIDTH; Value: 12.4; Range: 11.5-14.5; Units: %; Status: F Test: PLATELET COUNT, AUTOMATED; Value: 156; Range: 150-450; Units: k/mm3; Status: F Test: NEUTROPHILS %; Value: 65.8; Range: 36.0-66.0; Units: %; Status: F Test: LYMPH %; Value: 21.4; Range: 24.0-44.0; Abnormal: Below low normal; Units: %; Status: F Test: MONO %; Value: 5.1; Range: 0.0-5.0; Abnormal: Above high normal; Units: %; Status: F Test: EOS %; Value: 5.1; Range: 0.0-3.0; Abnormal: Above high normal; Units: %; Status: F Test: BASO %; Value: 0.7; Range: 0.0-1.0; Units: %; Status: F Test: LARGE UNSTAINED CELL %; Value: 1.9; Range: 0.0-4.0; Units: %; Status: F Test: NEUTROPHILS #; Value: 3.8; Range: 1.8-7.7; Units: K/mm3; Status: F Test: LYMPH #; Value: 1.2; Range: 1.5-4.5; Abnormal: Below low normal; Units: K/mm3; Status: F Test: MONO #; Value: 0.3; Range: 0.0-0.8; Units: K/mm3; Status: F Test: EOS #; Value: 0.3; Range: 0.0-0.50; Units: K/mm3; Status: F Test: BASO #; Value: 0.0; Range: 0.0-0.2; Units: K/mm3; Status: F Test: LARGE UNSTAINED CELL #; Value: 0.1; Range: 0.0-0.4; Units: K/mm3; Status: F Lab Order: MED Profile; SPEC'M 11/10/16 13:42 Test: GLUCOSE, FASTING; Value: 102; Range: 80-110; Units: MG/DL; Status: F Test: BLOOD UREA NITROGEN; Value: 16; Range: 7-18; Units: MG/DL; Status: F Test: CREATININE FOR GFR; Value: 0.88; Range: 0.70-1.30; Units: MG/DL; Status: F Test: GLOMERULAR FILTRATION RATE; Value: > 60.0; Range: >49; Status: F Test: SODIUM LEVEL; Value: 141; Range: 136-145; Units: MEQ/L; Status: F Test: POTASSIUM SERUM; Value: 3.8; Range: 3.5-5.1; Units: MEQ/L; Status: F Test: CHLORIDE LEVEL; Value: 106; Range: 98-107; Units: MEQ/L; Status: F Test: CARBON DIOXIDE LEVEL; Value: 29; Range: 21-32; Units: MEQ/L; Status: F Test: ANION GAP; Value: 6; Range: 8-16; Abnormal: Below low normal; Units: MEQ/L; Status: F Test: CALCIUM LEVEL; Value: 8.3; Range: 8.8-10.2; Abnormal: Below low normal; Units: MG/DL; Status: F Test Note: ; Units are mL/min/1.73 m2 Chronic Kidney Disease Staging per NKF: Stage I & II GFR >=60 Normal to Mildly Decreased Stage III GFR 30-59 Moderately Decreased Stage IV GFR 15-29 Severely Decreased Stage V GFR <15 Very Little GFR Left ESRD GFR <15 on COMMERCIAL CENTER MANAGER Lab Order: CIP; [facility] 11/10/16 13:42 Test: CPK CREATINE PHOSPHOKINASE; Value: 51; Range: 39-308; Units: U/L; Status: F Test: CK-MB VALUE MASS; Value: 1.0; Range: 0.0-3.6; Units: NG/ML; Status: F Test: MB/CK RELATIVE INDEX; Value: 1.96; Range: < OR =4; Status: F Test Note: ; DIAGNOSIS CRITERIA MMB ng/ml Relative Index (RI) NON-AMI < or = 5 N/A AMARO ZONE > 5 < or = 4 AMI > 5 > 4 Lab Order: Troponin; [facility] 11/10/16 13:42 Test: TROPONIN I; Value: < 0.02; Range: < 0.10; Units: NG/ML; Status: F Test Note: ; Troponin I Reference Interval for Lumatix LOCI: 99th Percentile= 0.00-0.045 ng/ml Risk Stratification: <= 0.10 ng/ml Decreased Risk for Adverse Clinical Events. 0.10-1.50 ng/ml Increased Risk for Adverse Clinical Events. Evaluation of additional criterion and/or repeat testing in 2-6 hours is suggested to rule out myocardial damage. >= 1.50 ng/ml Indicative of Myocardial Injury. Lab Order: CARDIAC MARKER PANEL; [facility] 11/10/16 17:23 Test: CPK CREATINE PHOSPHOKINASE; Value: 48; Range: 39-308; Units: U/L; Status: F Test: CK-MB VALUE MASS; Value: 1.0; Range: 0.0-3.6; Units: NG/ML; Status: F Test: MB/CK RELATIVE INDEX; Value: 2.08; Range: < OR =4; Status: F Test: TROPONIN I; Value: < 0.02; Range: < 0.10; Units: NG/ML; Status: F Test Note: ; DIAGNOSIS CRITERIA MMB ng/ml Relative Index (RI) NON-AMI < or = 5 N/A AMARO ZONE > 5 < or = 4 AMI > 5 > 4 Radiology Order: CT Head Without Contrast Test: CT Head Without Contrast REASON FOR EXAMINATION: CVA <4.5hrs; Clinical: Acute cerebrovascular accident .; ; Comparison: None .; ; Findings:; The ventricles, sulci, and cisterns are normal in position and appearance.; Amaro-white differentiation is maintained. No acute intracranial hemorrhage,; mass/mass effect, pathology or trauma/injury. No evidence for acute infarction.; No extra-axial fluid collection. Calvarium is intact. Paranasal sinuses and; mastoid air cells are clear.; ; Impression:; ; No evidence for acute intracranial pathology or trauma/injury.; ; ; Signed by; Lawson Serrano MD 11/10/2016 01:41 P; Radiology Order: EKG-ADULT Test: EKG-ADULT REASON FOR EXAMINATION: CVA; Stationary ECG Study; [facility] - ED; ; Test Date: 2016-11-10; Pat Name: JEANCARLOS MALAVE Department:; Room: -; Gender: M Supervisor Metal Fabricating: willam; : 1950 Requested By: Regis Moctezuma; Order Number: [id number] Reading MD: Regis Blandon; Measurements; Intervals [place]; Rate: 73 P: 57; MO: 182 QRS: 12; QRSD: 77 T: 41; QT: 351; QTc: 387; Interpretive Statements; SINUS RHYTHM; POSSIBLE LAE; NO PRIORS; Electronically Signed On 11-11-2016 7:21:08 EST by Regis Blandon; Radiology Order: -MRA-Brain without contrast Test: -MRA-Brain without contrast REASON FOR EXAMINATION: CVA <4.5hrs; MRA BRAIN WITHOUT CONTRAST:; ; HISTORY: Infarction.; ; 3D TOF MR angiography was performed at the level of the [place] of [place].; ; There is no aneurysm or arteriovenous malformation. Mild atherosclerotic disease; involves the cavernous internal carotid arteries. Major intracranial vessels are; patent. The left vertebral artery is dominant.; ; IMPRESSION:; 1. There is no aneurysm or arteriovenous malformation.; 2. Atherosclerotic disease as described above.; ; ; ; Unreviewed; Radiology Order: -MRI-Brain without Test: -MRI-Brain without REASON FOR EXAMINATION: CVA <4.5hrs; MRI BRAIN WITHOUT CONTRAST:; ; HISTORY: Infarction.; ; COMPARISON: CT 11/10/2016; ; Scattered punctate areas of increased signal intensity on T2-weighted images are; present in the periventricular and subcortical white matter. This represents; small vessel ischemic disease. There is no intraparenchymal hemorrhage, infarct,; mass or midline shift. The ventricular system and cortical sulci are dilated; consistent with minimal volume loss. There is no extracerebral collection.; Mucosal thickening is present in the ethmoid, maxillary and sphenoid sinuses.; ; IMPRESSION:; 1. Minimal small vessel ischemic disease.; 2. Minimal volume loss.; ; ; ; Unreviewed; Radiology Order: ECG WITH READING ER PHYS Test: ECG WITH READING ER PHYS REASON FOR EXAMINATION: WEAKNESS(REPEAT EKG AT 5:30); Stationary ECG Study; [facility] - ED; ; Test Date: 2016-11-10; Pat Name: JEANCARLOS MALAVE Department:; Room: -; Gender: Supervisor Metal Fabricating: JACQUELINE; : 1950 Requested By: Regis Moctezuma; Order Number: [id number] Reading MD: Regis Blandon; Measurements; Intervals [place]; Rate: 74 P: 50; MO: 157 QRS: 17; QRSD: 78 T: 50; QT: 363; QTc: 405; Interpretive Statements; SINUS RHYTHM; ; Electronically Signed On 11-11-2016 7:24:02 EST by Regis Blandon; Outcome: 11/10 17:35 CT Study completed. MRI Study completed. ead 17:56 Discharge ordered by Provider. pc 18:23 Discharge Assessment: Patient awake and alert. obeys commands, Oriented to person, ead place and time. patient administered narcotics - no. The following High Risk Discharge criteria are identified: None. Discharged to home ambulatory, with family. Condition: improved. Discharge instructions given to patient, Instructed on discharge instructions, follow up and referral plans. Demonstrated understanding of instructions, Pt was receptive of discharge instructions/ teaching. Property sent home with patient. 18:23 Patient left the ED. ead Signatures: Dispatcher [employer] EDMS Regis Blandon MD MD pc Daly, Linda, Oracle Database Developer Unit lbd Xander Romero, STEPHEN RN Avni Wood, Reg Reg kf3 Teagan SalasRN RN ead Maurizio Lawrence, SUPPORT ASSOCIATE SUPPORT ASSOCIATE jrd Chart Complete MTDD
--- NOTE | 2016-11-12 19:24 | EDDOCDS ---
Physician Documentation [facility] Name: Jeancarlos Giles Age: 66 yrs Sex: Male : 1950 Arrival Date: 11/10/2016 Time: 13:15 Bed 19 Private MD: Gelacio Alvarez M.D. Disposition: 11/10 17:55 Critical Care: Critical care not applicable. pc Disposition: 11/10/16 17:56 Discharged to Home/Self Care. Impression: Paresthesia of skin. - Condition is Stable. - Discharge Instructions: Paresthesia. - Medication Reconciliation, Local Pharmacy Hours form. - Follow up: Gelacio Alvarez MD; When: Call to arrange an appointment; Reason: Continuance of care. - Problem is new. - Symptoms are resolved. HPI: 14:47 This 66 yrs old Male presents to ER via Ambulance with complaints of Weakness.pc 14:47 The history is obtained from the patient. pc 14:48 At approximately 11:30am, while helping lift his disabled 's leg into a chair, he pc felt his left arm go numb, described as pins and needles. He then thought his left upper arm felt swollen, then an "odd feeling" down his left torso and into his left leg. He denied having any chest pain, headache, visual changes, or any other symptom. The symptoms started to resolve after 60 minutes. He called for EMS shortly after that time. He arrives stating his symptoms are now all but gone, with only the feeling that his left arm feels swollen. 14:53 At their worst, the symptoms were moderate. In the emergency department, the symptoms pc are mild. The patient has not experienced similar symptoms in the past. The patient has been recently seen by their primary care provider, for a routine, regularly scheduled appointment. Historical: - Allergies: PENICILLINS; - Home Meds: 1. aspirin 81 mg Oral tab once daily (Last dose: 11/10/2016) 2. vitamin H72-ecukz acid oral Unknown oral once daily 3. meloxicam 15 mg oral tab 1 tab once daily 4. 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 - Social history: Smoking status: Patient states was never smoker of tobacco. No barriers to communication noted, The patient speaks fluent Pakistani, Speaks appropriately for age. - Family history: Not pertinent. - Hospitalizations: : No recent hospitalization is reported. - : The pt / caregiver states he / she is not on anticoagulants. Home medication list is obtained from the patient, Home medication list is obtained from patients' pharmacy. - Exposure Risk Screening:: None identified. - Immunization history:: All immunizations up-to-date. - Social history:: the patient smokes cigarettes the patient does not drink alcohol. ROS: 14:53 All systems are negative except as listed. pc Exam: 14:53 General Appearance: no acute distress, alert. pc 14:53 EENT: normal eye inspection, ears, nose and throat normal, pharynx normal, mucous membranes moist 14:53 Neck: The exam reveals no acute abnormalities. ROM is normal and painless. No nuchal rigidity is noted.. 14:53 Respiratory: no respiratory distress, normal breath sounds. 14:53 CVS: regular pulse rate, regular rhythm, normal S1 and S2, no murmurs, strong peripheral pulses, normal capillary refill. 14:53 Abdomen: soft, non-tender, no organomegaly, normal bowel sounds. 14:53 Back: normal inspection. 14:53 Skin: skin color is normal, warm, dry. 14:53 Extremities: The extremities have a grossly normal appearance, are non-tender, without acute ROM abnormalities. 14:53 Neuro: oriented x 3, cranial nerves normal as tested, no motor deficits, no sensory deficits, Cerebellar function: normal finger to nose testing, Heel to wesley testing is normal, Romberg testing is negative, Deep tendon reflexes are normal, NIHSS score of 0. 14:53 Psych: normal mood. Vital Signs: 13:18 BP 148 / 76; Pulse 83; Resp 20; Temp 96.6(O); Pulse Ox 99% on R/A; Weight 70.31 kg / ead 155.01 lbs (R); Height 5 ft. 4 in. (162.56 cm) (R); Pain 0/10; 13:37 BP 138 / 66 (auto/); ead 13:38 Pulse 78 MON; Pulse Ox 99% on R/A; ead 13:52 BP 130 / 69 (auto/); ead 13:53 Pulse 74 MON; Pulse Ox 98% ; ead 14:07 BP 127 / 69 (auto/); ead 14:08 Pulse 80 MON; Resp 18; Pulse Ox 98% on R/A; ead 14:22 BP 118 / 68 (auto/); ead 14:23 Pulse 72 MON; Pulse Ox 98% ; ead 14:37 BP 118 / 67 (auto/); ead 14:38 Pulse 78 MON; Pulse Ox 98% ; ead 14:52 BP 121 / 69 (auto/); ead 14:53 Pulse 76 MON; Resp 20; Pulse Ox 98% on R/A; ead 14:57 Pulse 76 MON; Pulse Ox 99% ; ead 16:13 BP 125 / 67 (auto/); ead 16:14 Pulse 76 MON; Resp 16; Pulse Ox 99% on R/A; ead 16:28 BP 114 / 68 (auto/); ead 16:28 Pulse 74 MON; Pulse Ox 98% ; ead 16:43 BP 116 / 68 (auto/); ead 16:43 Pulse 76 MON; Resp 18; Pulse Ox 98% on R/A; ead 16:58 BP 122 / 65 (auto/); ead 16:58 Pulse 72 MON; Pulse Ox 98% ; ead 17:13 BP 113 / 60 (auto/); ead 17:13 Pulse 82 MON; Resp 16; Pulse Ox 98% on R/A; ead 17:28 BP 111 / 65 (auto/); ead 17:29 Pulse 78 MON; Pulse Ox 97% ; ead 18:22 BP 117 / 68; Pulse 74; Resp 18; Temp 97.1(O); Pulse Ox 98% on R/A; Pain 0/10; ead 13:18 Body Mass Index 26.61 (70.31 kg, 162.56 cm) ead MDM: 13:27 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 pc 13:27 IV Saline Lock ordered. pc 13:27 CT Head Without Contrast Ordered. EDMS 13:28 ECG WITH READING ER PHYS+CARDIAG ordered. EDMS 13:28 CBC with Diff Ordered. EDMS 13:28 MED Profile Ordered. EDMS 13:28 CIP Ordered. EDMS 13:28 Troponin Ordered. EDMS 14:45 CBC with Diff Reviewed. pc 14:45 MED Profile Reviewed. pc 14:45 CIP Reviewed. pc 14:45 Troponin Reviewed. pc 14:45 CT Head Without Contrast Reviewed. pc 14:46 MRI Screening Tool - Place on chart, inform RN ordered. pc 14:47 -MRA-Brain without contrast Ordered. EDMS 14:47 -MRI-Brain without Ordered. EDMS 14:53 Differential Diagnosis: TIA v CVA. Plan: labs, CT, EKG. Test interpretation: EKG. pc 14:56 MRI Screening Tool - Place on chart, inform RN complete. ead 16:17 Ambulate Patient to Assess Patient Safety ordered. pc 16:32 Redraw CIP &Troponin (put time in details section) ordered. pc 16:32 Repeat EKG (put time details section) ordered. pc 16:33 Financial registration complete. kf3 16:34 Redraw CIP &Troponin (put time in details section) complete. lbd 16:35 Repeat EKG (put time details section) complete. lbd 16:37 ECG WITH READING ER PHYS ordered. EDMS 16:38 CARDIAC MARKER PANEL Ordered. EDMS 17:04 [facility] Payment Agreement was scanned into [employer] and attached to record. kf3 17:37 Test interpretation: EKG. pc 17:55 CARDIAC MARKER PANEL Reviewed. pc 17:55 Data reviewed: old medical records, vital signs, nurses notes, EKG(s), lab test pc results, all radiology studies and available results. Test interpretation: LAB - all labs as ordered have been reviewed, interpreted and considered in the overall management of the clinical presentation; interpreted by Radiologist and personally reviewed, Head CT; no acute disease, MRI - interpreted by Radiologist and personally reviewed, Brain (MRI) - No acute disease Brain (MRA) - Normal. The patient has been re-examined and re-evaluated. The patient's symptoms have resolved after treatment. Physician consultation: Dr. Virginie Fields MD regarding patient's condition, and advises the medications/treatment as provided. Disposition: The historical points, examination findings, and any diagnostic results supporting the provided diagnosis, were discussed with the patient or legal guardian. The need for outpatient follow up with the provider listed on their discharge instructions was discussed. They were encouraged to return to [facility] [place], or the nearest ED, if symptoms worsen/persist, or for any other questions/concerns. EC:53 Rate is 73 beats/min. Rhythm is regular, Normal Sinus Rhythm. QRS [place] is Normal. ND pc interval is normal. QRS interval is normal. QT interval is normal. No Q waves. T waves are Normal. No ST changes noted. Clinical impression: Normal Sinus Rhythm. 17:37 Rate is 74 beats/min. Rhythm is regular, Normal Sinus Rhythm. QRS [place] is Normal. ND pc interval is normal. QRS interval is normal. QT interval is normal. No Q waves. T waves are Normal. No ST changes noted. Clinical impression: Normal Sinus Rhythm. Signatures: Dispatcher [employer] EDMS Regis Blandon MD MD pc Daly, Linda, Slot Host Unit lbd Avni Johnson, Reg Reg kf3 Teagan Salas,RN RN earony The chart was reviewed and I authenticate all verbal orders and agree with the evaluation and treatment provided.Corrections: (The following items were deleted from the chart) 14:56 14:48 At approximately 11:30am, while helping lift his disabled 's leg into a pc chair, he felt his left arm go numb, described as pins and needles pc Attachments: 17:04 [facility] Payment Agreement kf3 Chart Complete MTDD
--- NOTE | 2016-11-12 19:24 | EDDOCDS ---
Physician Documentation [facility] Name: Jeancarlos Giles Age: 66 yrs Sex: Male : 1950 Arrival Date: 11/10/2016 Time: 13:15 Bed 19 Private MD: Gelacio Alvarez M.D. Disposition: 11/10 17:55 Critical Care: Critical care not applicable. pc Disposition: 11/10/16 17:56 Discharged to Home/Self Care. Impression: Paresthesia of skin. - Condition is Stable. - Discharge Instructions: Paresthesia. - Medication Reconciliation, Local Pharmacy Hours form. - Follow up: Gelacio Alvarez MD; When: Call to arrange an appointment; Reason: Continuance of care. - Problem is new. - Symptoms are resolved. HPI: 14:47 This 66 yrs old Male presents to ER via Ambulance with complaints of Weakness.pc 14:47 The history is obtained from the patient. pc 14:48 At approximately 11:30am, while helping lift his disabled 's leg into a chair, he pc felt his left arm go numb, described as pins and needles. He then thought his left upper arm felt swollen, then an "odd feeling" down his left torso and into his left leg. He denied having any chest pain, headache, visual changes, or any other symptom. The symptoms started to resolve after 60 minutes. He called for EMS shortly after that time. He arrives stating his symptoms are now all but gone, with only the feeling that his left arm feels swollen. 14:53 At their worst, the symptoms were moderate. In the emergency department, the symptoms pc are mild. The patient has not experienced similar symptoms in the past. The patient has been recently seen by their primary care provider, for a routine, regularly scheduled appointment. Historical: - Allergies: PENICILLINS; - Home Meds: 1. aspirin 81 mg Oral tab once daily (Last dose: 11/10/2016) 2. vitamin B54-iwswg acid oral Unknown oral once daily 3. meloxicam 15 mg oral tab 1 tab once daily 4. 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 - Social history: Smoking status: Patient states was never smoker of tobacco. No barriers to communication noted, The patient speaks fluent [place], Speaks appropriately for age. - Family history: Not pertinent. - Hospitalizations: : No recent hospitalization is reported. - : The pt / caregiver states he / she is not on anticoagulants. Home medication list is obtained from the patient, Home medication list is obtained from patients' pharmacy. - Exposure Risk Screening:: None identified. - Immunization history:: All immunizations up-to-date. - Social history:: the patient smokes cigarettes the patient does not drink alcohol. ROS: 14:53 All systems are negative except as listed. pc Exam: 14:53 General Appearance: no acute distress, alert. pc 14:53 EENT: normal eye inspection, ears, nose and throat normal, pharynx normal, mucous membranes moist 14:53 Neck: The exam reveals no acute abnormalities. ROM is normal and painless. No nuchal rigidity is noted.. 14:53 Respiratory: no respiratory distress, normal breath sounds. 14:53 CVS: regular pulse rate, regular rhythm, normal S1 and S2, no murmurs, strong peripheral pulses, normal capillary refill. 14:53 Abdomen: soft, non-tender, no organomegaly, normal bowel sounds. 14:53 Back: normal inspection. 14:53 Skin: skin color is normal, warm, dry. 14:53 Extremities: The extremities have a grossly normal appearance, are non-tender, without acute ROM abnormalities. 14:53 Neuro: oriented x 3, cranial nerves normal as tested, no motor deficits, no sensory deficits, Cerebellar function: normal finger to nose testing, Heel to wesley testing is normal, Romberg testing is negative, Deep tendon reflexes are normal, NIHSS score of 0. 14:53 Psych: normal mood. Vital Signs: 13:18 BP 148 / 76; Pulse 83; Resp 20; Temp 96.6(O); Pulse Ox 99% on R/A; Weight 70.31 kg / ead 155.01 lbs (R); Height 5 ft. 4 in. (162.56 cm) (R); Pain 0/10; 13:37 BP 138 / 66 (auto/); ead 13:38 Pulse 78 MON; Pulse Ox 99% on R/A; ead 13:52 BP 130 / 69 (auto/); ead 13:53 Pulse 74 MON; Pulse Ox 98% ; ead 14:07 BP 127 / 69 (auto/); ead 14:08 Pulse 80 MON; Resp 18; Pulse Ox 98% on R/A; ead 14:22 BP 118 / 68 (auto/); ead 14:23 Pulse 72 MON; Pulse Ox 98% ; ead 14:37 BP 118 / 67 (auto/); ead 14:38 Pulse 78 MON; Pulse Ox 98% ; ead 14:52 BP 121 / 69 (auto/); ead 14:53 Pulse 76 MON; Resp 20; Pulse Ox 98% on R/A; ead 14:57 Pulse 76 MON; Pulse Ox 99% ; ead 16:13 BP 125 / 67 (auto/); ead 16:14 Pulse 76 MON; Resp 16; Pulse Ox 99% on R/A; ead 16:28 BP 114 / 68 (auto/); ead 16:28 Pulse 74 MON; Pulse Ox 98% ; ead 16:43 BP 116 / 68 (auto/); ead 16:43 Pulse 76 MON; Resp 18; Pulse Ox 98% on R/A; ead 16:58 BP 122 / 65 (auto/); ead 16:58 Pulse 72 MON; Pulse Ox 98% ; ead 17:13 BP 113 / 60 (auto/); ead 17:13 Pulse 82 MON; Resp 16; Pulse Ox 98% on R/A; ead 17:28 BP 111 / 65 (auto/); ead 17:29 Pulse 78 MON; Pulse Ox 97% ; ead 18:22 BP 117 / 68; Pulse 74; Resp 18; Temp 97.1(O); Pulse Ox 98% on R/A; Pain 0/10; ead 13:18 Body Mass Index 26.61 (70.31 kg, 162.56 cm) ead MDM: 13:27 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 pc 13:27 IV Saline Lock ordered. pc 13:27 CT Head Without Contrast Ordered. EDMS 13:28 ECG WITH READING ER PHYS+CARDIAG ordered. EDMS 13:28 CBC with Diff Ordered. EDMS 13:28 MED Profile Ordered. EDMS 13:28 CIP Ordered. EDMS 13:28 Troponin Ordered. EDMS 14:45 CBC with Diff Reviewed. pc 14:45 MED Profile Reviewed. pc 14:45 CIP Reviewed. pc 14:45 Troponin Reviewed. pc 14:45 CT Head Without Contrast Reviewed. pc 14:46 MRI Screening Tool - Place on chart, inform RN ordered. pc 14:47 -MRA-Brain without contrast Ordered. EDMS 14:47 -MRI-Brain without Ordered. EDMS 14:53 Differential Diagnosis: TIA v CVA. Plan: labs, CT, EKG. Test interpretation: EKG. pc 14:56 MRI Screening Tool - Place on chart, inform RN complete. ead 16:17 Ambulate Patient to Assess Patient Safety ordered. pc 16:32 Redraw CIP &Troponin (put time in details section) ordered. pc 16:32 Repeat EKG (put time details section) ordered. pc 16:33 Financial registration complete. kf3 16:34 Redraw CIP &Troponin (put time in details section) complete. lbd 16:35 Repeat EKG (put time details section) complete. lbd 16:37 ECG WITH READING ER PHYS ordered. EDMS 16:38 CARDIAC MARKER PANEL Ordered. EDMS 17:04 [facility] Payment Agreement was scanned into [employer] and attached to record. kf3 17:37 Test interpretation: EKG. pc 17:55 CARDIAC MARKER PANEL Reviewed. pc 17:55 Data reviewed: old medical records, vital signs, nurses notes, EKG(s), lab test pc results, all radiology studies and available results. Test interpretation: LAB - all labs as ordered have been reviewed, interpreted and considered in the overall management of the clinical presentation; interpreted by Radiologist and personally reviewed, Head CT; no acute disease, MRI - interpreted by Radiologist and personally reviewed, Brain (MRI) - No acute disease Brain (MRA) - Normal. The patient has been re-examined and re-evaluated. The patient's symptoms have resolved after treatment. Physician consultation: Dr. Virginie Fields MD regarding patient's condition, and advises the medications/treatment as provided. Disposition: The historical points, examination findings, and any diagnostic results supporting the provided diagnosis, were discussed with the patient or legal guardian. The need for outpatient follow up with the provider listed on their discharge instructions was discussed. They were encouraged to return to [facility], or the nearest ED, if symptoms worsen/persist, or for any other questions/concerns. EC:53 Rate is 73 beats/min. Rhythm is regular, Normal Sinus Rhythm. QRS [place] is Normal. [place] pc interval is normal. QRS interval is normal. QT interval is normal. No Q waves. T waves are Normal. No ST changes noted. Clinical impression: Normal Sinus Rhythm. 17:37 Rate is 74 beats/min. Rhythm is regular, Normal Sinus Rhythm. QRS [place] is Normal. AL pc interval is normal. QRS interval is normal. QT interval is normal. No Q waves. T waves are Normal. No ST changes noted. Clinical impression: Normal Sinus Rhythm. Signatures: Dispatcher [employer] EDMS Regis Blandon MD MD pc Daly, Linda, Educational Director Unit lbd Avni Johnson, Reg Reg kf3 Teagan Salas,RN RN earony The chart was reviewed and I authenticate all verbal orders and agree with the evaluation and treatment provided.Corrections: (The following items were deleted from the chart) 14:56 14:48 At approximately 11:30am, while helping lift his disabled 's leg into a pc chair, he felt his left arm go numb, described as pins and needles pc Attachments: 17:04 [facility] Payment Agreement kf3 Chart Complete MTDD
--- NOTE | 2016-11-12 22:21 | EDDOCDS ---
Nurse's Notes [facility] Name: Jeancarlos Malave Age: 66 yrs Sex: Male : 1950 Arrival Date: 11/10/2016 Time: 13:15 Bed 19 Private MD: Gelacio Alvarez M.D. Diagnosis: Paresthesia of skin Presentation: 11/10 13:18 Presenting complaint: EMS states: left sided tingling, numbness, x 1 hour. report ead negative on stroke scale. denies chest pain/sob. Blood glucose of 120. Denies medical hx. The last date and time the patient was known to be well was was at 12:20 on November 10, 2016. No acute neurological deficit is noted. The patients blood glucose was checked before arriving to the hospital and was found to be normal. Adult Sepsis Screening: The patient does not have new or worsening altered mentation. Patient's respiratory rate is less than 22. Systolic blood pressure is greater than 100. Patient has a qSOFA score of 0- Negative Sepsis Screen. Suicide/Homicide risk assessment- the patient denies having any suicidal and/or homicidal ideations and does not present with any other emotional, behavioral or mental health complaints. Status: Patient is not a service line layer or dependent. Transition of care: patient was not received from another setting of care. 13:18 Method Of Arrival: Ambulance ead 13:18 Acuity: NATHAN Level 3 ead Triage Assessment: 13:18 The onset of the patients symptoms was less than three hours ago. General: Appears in ead no apparent distress, comfortable, well nourished, well groomed, Behavior is appropriate for age, cooperative, pleasant. Pain: Denies pain. The patient is triaged at the bedside. See Assessment in Nurses Notes section of ED record. Neurological: Level of Consciousness is awake, alert, obeys commands, Oriented to person, place, time, Language And Literature Division Chair are equal bilaterally Moves all extremities. Full function in left in right hand's) arm(s) leg(s) foot/feet from shoulders down, Speech is normal, Facial symmetry appears normal, pt denies numbness to left side. . Neurological: Denies weakness headache Reports blurred vision dizziness, prior to arrival, reports dizziness has resolved.. Cardiovascular: Chest pain is denied. Respiratory: Airway is patent Respiratory effort is even, unlabored, Denies cough, shortness of breath. GI: Abdomen is non- distended Denies nausea, vomiting, pain. Derm: Skin is pink, warm & dry. Historical: - Allergies: PENICILLINS; - Home Meds: 1. aspirin 81 mg Oral tab once daily (Last dose: 11/10/2016) 2. vitamin Z68-bqsfc acid oral Unknown oral once daily 3. meloxicam 15 mg oral tab 1 tab once daily 4. 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 - Social history: Smoking status: Patient states was never smoker of tobacco. No barriers to communication noted, The patient speaks fluent Yi, Speaks appropriately for age. - Family history: Not pertinent. - Hospitalizations: : No recent hospitalization is reported. - : The pt / caregiver states he / she is not on anticoagulants. Home medication list is obtained from the patient, Home medication list is obtained from patients' pharmacy. - Exposure Risk Screening:: None identified. - Immunization history:: All immunizations up-to-date. - Social history:: the patient smokes cigarettes the patient does not drink alcohol. Screenin:35 Screening information is obtained from the patient. Fall risk: No risks identified. ead Assistance ADL's: requires no assistance with activities of daily living. Abuse/DV Screen: The patient / caregiver reports he/she is: not in a situation that causes fear, pain or injury. Nutritional screening: No deficits noted. Advance Directives: Currently, there is no health care proxy. There is no active DNR order. There is no living will. There is no Power of Clinical Technologist. home support is adequate. Assessment: 14:30 General: Appears in no apparent distress, comfortable, Behavior is appropriate for age, ead cooperative, pleasant. Neurological: Level of Consciousness is awake, alert, obeys commands, Oriented to person, place, time, Moves all extremities. Speech is normal, Facial symmetry appears normal, Reports headache. Cardiovascular: Capillary refill < 3 seconds in bilateral fingers Heart tones S1 S2 present Rhythm is sinus rhythm No ectopy. Chest pain is denied. Respiratory: Airway is patent Respiratory effort is even, unlabored. Respiratory: Breath sounds are clear bilaterally. Denies cough, shortness of breath. GI: Denies nausea, vomiting, pain. Derm: Skin is pink, warm & dry. 16:10 General: Appears in no apparent distress, comfortable, Behavior is appropriate for age, ead cooperative, pleasant. Neurological: Level of Consciousness is awake, alert, obeys commands, Oriented to person, place, time, Reports headache "is letting up". Neurological: Moves all extremities. Speech is normal, Facial symmetry appears normal, denies numbness/tingling. Cardiovascular: Rhythm is sinus rhythm No ectopy. Chest pain is denied. Respiratory: Airway is patent Respiratory effort is even, unlabored. Derm: Skin is pink, warm & dry. 16:40 General: Pt ambulated in hallway without difficulty. Denies weakness/dizziness, denies ead numbness/tingling. Pt returned to room. Call howe within reach, will continue to monitor. Pt updated of plan for repeat EKG and lab work at 1730.. 17:24 General: Appears in no apparent distress, comfortable, Behavior is appropriate for age, ead cooperative. Neurological: Level of Consciousness is awake, alert, obeys commands, Oriented to person, place, time, Moves all extremities. Speech is normal, Facial symmetry appears normal. Respiratory: Airway is patent Respiratory effort is even, unlabored. Derm: Skin is pink, warm & dry. 18:22 General: Appears in no apparent distress, comfortable, Behavior is appropriate for age, ead cooperative, pleasant. Pain: Denies pain. Neurological: Level of Consciousness is awake, alert, obeys commands, Oriented to person, place, time, Moves all extremities. Gait is steady, Speech is normal, Facial symmetry appears normal. Respiratory: Airway is patent Respiratory effort is even, unlabored. Derm: Skin is pink, warm & dry. Vital Signs: 13:18 BP 148 / 76; Pulse 83; Resp 20; Temp 96.6(O); Pulse Ox 99% on R/A; Weight 70.31 kg (R); ead Height 5 ft. 4 in. (162.56 cm) (R); Pain 0/10; 13:37 BP 138 / 66 (auto/); ead 13:38 Pulse 78 MON; Pulse Ox 99% on R/A; ead 13:52 BP 130 / 69 (auto/); ead 13:53 Pulse 74 MON; Pulse Ox 98% ; ead 14:07 BP 127 / 69 (auto/); ead 14:08 Pulse 80 MON; Resp 18; Pulse Ox 98% on R/A; ead 14:22 BP 118 / 68 (auto/); ead 14:23 Pulse 72 MON; Pulse Ox 98% ; ead 14:37 BP 118 / 67 (auto/); ead 14:38 Pulse 78 MON; Pulse Ox 98% ; ead 14:52 BP 121 / 69 (auto/); ead 14:53 Pulse 76 MON; Resp 20; Pulse Ox 98% on R/A; ead 14:57 Pulse 76 MON; Pulse Ox 99% ; ead 16:13 BP 125 / 67 (auto/); ead 16:14 Pulse 76 MON; Resp 16; Pulse Ox 99% on R/A; ead 16:28 BP 114 / 68 (auto/); ead 16:28 Pulse 74 MON; Pulse Ox 98% ; ead 16:43 BP 116 / 68 (auto/); ead 16:43 Pulse 76 MON; Resp 18; Pulse Ox 98% on R/A; ead 16:58 BP 122 / 65 (auto/); ead 16:58 Pulse 72 MON; Pulse Ox 98% ; ead 17:13 BP 113 / 60 (auto/); ead 17:13 Pulse 82 MON; Resp 16; Pulse Ox 98% on R/A; ead 17:28 BP 111 / 65 (auto/); ead 17:29 Pulse 78 MON; Pulse Ox 97% ; ead 18:22 BP 117 / 68; Pulse 74; Resp 18; Temp 97.1(O); Pulse Ox 98% on R/A; Pain 0/10; ead 13:18 Body Mass Index 26.61 (70.31 kg, 162.56 cm) ead Vitals: 13:15 Glucose Measurement D-stick done by EMS. Log In Time N/A - ambulance arrival. ead ED Course: 13:17 Patient visited by Tahira Ortiz, Ip Litigation Paralegal. lbd 13:17 Gelacio Alvarez is Private Physician. lbd 13:17 Teagan Salas,RN is Primary Nurse. lbd 13:17 Patient moved to Waiting lbd 13:17 Patient moved to 19 lbd 13:18 Regis Blandon MD is Attending Physician. pc 13:22 Triage Initiated ead 13:26 Patient visited by Regis Blandon MD. pc 13:44 Patient visited by Teagan Salas,STEPHEN. ead 13:44 Troponin Sent. ead 13:44 CIP Sent. ead 13:44 MED Profile Sent. ead 13:44 CBC with Diff Sent. ead 13:44 Inserted saline lock: 18 gauge in right antecubital area and blood collected. The ead patient tolerated the procedure well. 14:00 The patient / caregiver is instructed regarding the plan of care and ED course. Patient ead has correct armband on for positive identification. Placed in gown. Bed in low position. Call light in reach. Side rails up X 1. compensation advisor on. Pulse ox on. NIBP on. 14:00 EKG done. (by ED staff). Reviewed by Regis Blandon MD. ead 14:27 CT Head Without Contrast Returned. EDMS 14:38 Patient visited by Teagan Salas,RN. ead 14:57 Patient moved to MRI bcj 15:57 Patient visited by Teagan Salas,RN. ead 15:57 Patient moved to 19 ead 16:16 Patient visited by Teagan Salas,RN. ead 16:33 Patient visited by Teagan Salas,STEPHEN. ead 17:01 Patient name changed from Jeancarlos\\S\\\\S\\Tisha\\S\\ to Jeancarlos\\S\\ \\S\\Tisha. EDMS 17:04 [facility] Payment Agreement was scanned into [employer] and attached to record. kf3 17:20 EKG done. (by ED staff). Reviewed by Rgeis Blandon MD. jrd 17:24 Patient visited by Teagan Salas,RN. ead 17:24 CARDIAC MARKER PANEL Sent. ead 17:56 Gelacio Alvarez MD is Referral Physician. pc 18:22 Discontinued lock intact, bleeding controlled, pressure dressing applied, No ead redness/swelling at site. No procedures done that require assistance. 11/11 07:31 EKG-ADULT Returned. EDMS 07:31 ECG WITH READING ER PHYS Returned. EDMS 09:19 -MRA-Brain without contrast Returned. EDMS 09:19 -MRI-Brain without Returned. EDMS Order Results: Lab Order: CBC with Diff; SPEC'M 11/10/16 13:42 Test: WHITE BLOOD COUNT; Value: 5.8; Range: 4.0-10.0; Units: K/mm3; Status: F Test: RED BLOOD COUNT; Value: 4.56; Range: 4.30-6.10; Units: M/mm3; Status: F Test: HEMOGLOBIN; Value: 14.2; Range: 14.0-18.0; Units: g/dl; Status: F Test: HEMATOCRIT; Value: 40.9; Range: 42.0-52.0; Abnormal: Below low normal; Units: %; Status: F Test: MEAN CORPUSCULAR VOLUME; Value: 89.8; Range: 80.0-96.0; Units: fl; Status: F Test: MEAN CORPUSCULAR HEMOGLOBIN; Value: 31.2; Range: 27.0-33.0; Units: pg; Status: F Test: MEAN CORPUSCULAR HGB CONC; Value: 34.8; Range: 32.0-36.5; Units: g/dl; Status: F Test: RED CELL DISTRIBUTION WIDTH; Value: 12.4; Range: 11.5-14.5; Units: %; Status: F Test: PLATELET COUNT, AUTOMATED; Value: 156; Range: 150-450; Units: k/mm3; Status: F Test: NEUTROPHILS %; Value: 65.8; Range: 36.0-66.0; Units: %; Status: F Test: LYMPH %; Value: 21.4; Range: 24.0-44.0; Abnormal: Below low normal; Units: %; Status: F Test: MONO %; Value: 5.1; Range: 0.0-5.0; Abnormal: Above high normal; Units: %; Status: F Test: EOS %; Value: 5.1; Range: 0.0-3.0; Abnormal: Above high normal; Units: %; Status: F Test: BASO %; Value: 0.7; Range: 0.0-1.0; Units: %; Status: F Test: LARGE UNSTAINED CELL %; Value: 1.9; Range: 0.0-4.0; Units: %; Status: F Test: NEUTROPHILS #; Value: 3.8; Range: 1.8-7.7; Units: K/mm3; Status: F Test: LYMPH #; Value: 1.2; Range: 1.5-4.5; Abnormal: Below low normal; Units: K/mm3; Status: F Test: MONO #; Value: 0.3; Range: 0.0-0.8; Units: K/mm3; Status: F Test: EOS #; Value: 0.3; Range: 0.0-0.50; Units: K/mm3; Status: F Test: BASO #; Value: 0.0; Range: 0.0-0.2; Units: K/mm3; Status: F Test: LARGE UNSTAINED CELL #; Value: 0.1; Range: 0.0-0.4; Units: K/mm3; Status: F Lab Order: MED Profile; SPEC'M 11/10/16 13:42 Test: GLUCOSE, FASTING; Value: 102; Range: 80-110; Units: MG/DL; Status: F Test: BLOOD UREA NITROGEN; Value: 16; Range: 7-18; Units: MG/DL; Status: F Test: CREATININE FOR GFR; Value: 0.88; Range: 0.70-1.30; Units: MG/DL; Status: F Test: GLOMERULAR FILTRATION RATE; Value: > 60.0; Range: >49; Status: F Test: SODIUM LEVEL; Value: 141; Range: 136-145; Units: MEQ/L; Status: F Test: POTASSIUM SERUM; Value: 3.8; Range: 3.5-5.1; Units: MEQ/L; Status: F Test: CHLORIDE LEVEL; Value: 106; Range: 98-107; Units: MEQ/L; Status: F Test: CARBON DIOXIDE LEVEL; Value: 29; Range: 21-32; Units: MEQ/L; Status: F Test: ANION GAP; Value: 6; Range: 8-16; Abnormal: Below low normal; Units: MEQ/L; Status: F Test: CALCIUM LEVEL; Value: 8.3; Range: 8.8-10.2; Abnormal: Below low normal; Units: MG/DL; Status: F Test Note: ; Units are mL/min/1.73 m2 Chronic Kidney Disease Staging per NKF: Stage I & II GFR >=60 Normal to Mildly Decreased Stage III GFR 30-59 Moderately Decreased Stage IV GFR 15-29 Severely Decreased Stage V GFR <15 Very Little GFR Left ESRD GFR <15 on REACTOR FUELING SUPERVISOR Lab Order: CIP; [facility] 11/10/16 13:42 Test: CPK CREATINE PHOSPHOKINASE; Value: 51; Range: 39-308; Units: U/L; Status: F Test: CK-MB VALUE MASS; Value: 1.0; Range: 0.0-3.6; Units: NG/ML; Status: F Test: MB/CK RELATIVE INDEX; Value: 1.96; Range: < OR =4; Status: F Test Note: ; DIAGNOSIS CRITERIA MMB ng/ml Relative Index (RI) NON-AMI < or = 5 N/A AMARO ZONE > 5 < or = 4 AMI > 5 > 4 Lab Order: Troponin; [facility] 11/10/16 13:42 Test: TROPONIN I; Value: < 0.02; Range: < 0.10; Units: NG/ML; Status: F Test Note: ; Troponin I Reference Interval for [employer] LOCI: 99th Percentile= 0.00-0.045 ng/ml Risk Stratification: <= 0.10 ng/ml Decreased Risk for Adverse Clinical Events. 0.10-1.50 ng/ml Increased Risk for Adverse Clinical Events. Evaluation of additional criterion and/or repeat testing in 2-6 hours is suggested to rule out myocardial damage. >= 1.50 ng/ml Indicative of Myocardial Injury. Lab Order: CARDIAC MARKER PANEL; [facility] 11/10/16 17:23 Test: CPK CREATINE PHOSPHOKINASE; Value: 48; Range: 39-308; Units: U/L; Status: F Test: CK-MB VALUE MASS; Value: 1.0; Range: 0.0-3.6; Units: NG/ML; Status: F Test: MB/CK RELATIVE INDEX; Value: 2.08; Range: < OR =4; Status: F Test: TROPONIN I; Value: < 0.02; Range: < 0.10; Units: NG/ML; Status: F Test Note: ; DIAGNOSIS CRITERIA MMB ng/ml Relative Index (RI) NON-AMI < or = 5 N/A AMARO ZONE > 5 < or = 4 AMI > 5 > 4 Radiology Order: CT Head Without Contrast Test: CT Head Without Contrast REASON FOR EXAMINATION: CVA <4.5hrs; Clinical: Acute cerebrovascular accident .; ; Comparison: None .; ; Findings:; The ventricles, sulci, and cisterns are normal in position and appearance.; Amaro-white differentiation is maintained. No acute intracranial hemorrhage,; mass/mass effect, pathology or trauma/injury. No evidence for acute infarction.; No extra-axial fluid collection. Calvarium is intact. Paranasal sinuses and; mastoid air cells are clear.; ; Impression:; ; No evidence for acute intracranial pathology or trauma/injury.; ; ; Signed by; Lawson Serrano MD 11/10/2016 01:41 P; Radiology Order: EKG-ADULT Test: EKG-ADULT REASON FOR EXAMINATION: CVA; Stationary ECG Study; [facility] - ED; ; Test Date: 2016-11-10; Pat Name: JEANCARLOS MALAVE Department:; Room: -; Gender: M Corset Maker: willam; : 1950 Requested By: Regis Moctezuma; Order Number: [id number] Reading MD: Regis Blandon; Measurements; Intervals [place]; Rate: 73 P: 57; NC: 182 QRS: 12; QRSD: 77 T: 41; QT: 351; QTc: 387; Interpretive Statements; SINUS RHYTHM; POSSIBLE LAE; NO PRIORS; Electronically Signed On 11-11-2016 7:21:08 EST by Regis Blandon; Radiology Order: -MRA-Brain without contrast Test: -MRA-Brain without contrast REASON FOR EXAMINATION: CVA <4.5hrs; MRA BRAIN WITHOUT CONTRAST:; ; HISTORY: Infarction.; ; 3D TOF MR angiography was performed at the level of the [place] of [place].; ; There is no aneurysm or arteriovenous malformation. Mild atherosclerotic disease; involves the cavernous internal carotid arteries. Major intracranial vessels are; patent. The left vertebral artery is dominant.; ; IMPRESSION:; 1. There is no aneurysm or arteriovenous malformation.; 2. Atherosclerotic disease as described above.; ; ; ; Unreviewed; Radiology Order: -MRI-Brain without Test: -MRI-Brain without REASON FOR EXAMINATION: CVA <4.5hrs; MRI BRAIN WITHOUT CONTRAST:; ; HISTORY: Infarction.; ; COMPARISON: CT 11/10/2016; ; Scattered punctate areas of increased signal intensity on T2-weighted images are; present in the periventricular and subcortical white matter. This represents; small vessel ischemic disease. There is no intraparenchymal hemorrhage, infarct,; mass or midline shift. The ventricular system and cortical sulci are dilated; consistent with minimal volume loss. There is no extracerebral collection.; Mucosal thickening is present in the ethmoid, maxillary and sphenoid sinuses.; ; IMPRESSION:; 1. Minimal small vessel ischemic disease.; 2. Minimal volume loss.; ; ; ; Unreviewed; Radiology Order: ECG WITH READING ER PHYS Test: ECG WITH READING ER PHYS REASON FOR EXAMINATION: WEAKNESS(REPEAT EKG AT 5:30); Stationary ECG Study; [facility] - ED; ; Test Date: 2016-11-10; Pat Name: JEANCARLOS MALAVE Department:; Room: -; Gender: Corset Maker: JACQUELINE; : 1950 Requested By: Regis Moctezuma; Order Number: [id number] Reading MD: Regis Blandon; Measurements; Intervals [place]; Rate: 74 P: 50; NC: 157 QRS: 17; QRSD: 78 T: 50; QT: 363; QTc: 405; Interpretive Statements; SINUS RHYTHM; ; Electronically Signed On 11-11-2016 7:24:02 EST by Regis Blandon; Outcome: 11/10 17:35 CT Study completed. MRI Study completed. ead 17:56 Discharge ordered by Provider. pc 18:23 Discharge Assessment: Patient awake and alert. obeys commands, Oriented to person, ead place and time. patient administered narcotics - no. The following High Risk Discharge criteria are identified: None. Discharged to home ambulatory, with family. Condition: improved. Discharge instructions given to patient, Instructed on discharge instructions, follow up and referral plans. Demonstrated understanding of instructions, Pt was receptive of discharge instructions/ teaching. Property sent home with patient. 18:23 Patient left the ED. ead Signatures: Dispatcher [employer] EDMS Regis Blandon MD MD pc Daly, Linda, Ip Litigation Paralegal Unit lbd Xander Romero, STEPHEN RN Avni Wood, Reg Reg kf3 Teagan SalasRN RN ead Maurizio Lawrence, PATTERN CLERK PATTERN CLERK jrd Chart Complete MTDD
--- NOTE | 2016-11-12 22:21 | EDDOCDS ---
Physician Documentation [facility] Name: Jeancarlos Giles Age: 66 yrs Sex: Male : 1950 Arrival Date: 11/10/2016 Time: 13:15 Bed 19 Private MD: Gelacio Alvarez M.D. Disposition: 11/10 17:55 Critical Care: Critical care not applicable. pc Disposition: 11/10/16 17:56 Discharged to Home/Self Care. Impression: Paresthesia of skin. - Condition is Stable. - Discharge Instructions: Paresthesia. - Medication Reconciliation, Local Pharmacy Hours form. - Follow up: Gelacio Alvarez MD; When: Call to arrange an appointment; Reason: Continuance of care. - Problem is new. - Symptoms are resolved. HPI: 14:47 This 66 yrs old Male presents to ER via Ambulance with complaints of Weakness.pc 14:47 The history is obtained from the patient. pc 14:48 At approximately 11:30am, while helping lift his disabled 's leg into a chair, he pc felt his left arm go numb, described as pins and needles. He then thought his left upper arm felt swollen, then an "odd feeling" down his left torso and into his left leg. He denied having any chest pain, headache, visual changes, or any other symptom. The symptoms started to resolve after 60 minutes. He called for EMS shortly after that time. He arrives stating his symptoms are now all but gone, with only the feeling that his left arm feels swollen. 14:53 At their worst, the symptoms were moderate. In the emergency department, the symptoms pc are mild. The patient has not experienced similar symptoms in the past. The patient has been recently seen by their primary care provider, for a routine, regularly scheduled appointment. Historical: - Allergies: PENICILLINS; - Home Meds: 1. aspirin 81 mg Oral tab once daily (Last dose: 11/10/2016) 2. vitamin [id number] acid oral Unknown oral once daily 3. meloxicam 15 mg oral tab 1 tab once daily 4. 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 - Social history: Smoking status: Patient states was never smoker of tobacco. No barriers to communication noted, The patient speaks fluent [place]ian, Speaks appropriately for age. - Family history: Not pertinent. - Hospitalizations: : No recent hospitalization is reported. - : The pt / caregiver states he / she is not on anticoagulants. Home medication list is obtained from the patient, Home medication list is obtained from patients' pharmacy. - Exposure Risk Screening:: None identified. - Immunization history:: All immunizations up-to-date. - Social history:: the patient smokes cigarettes the patient does not drink alcohol. ROS: 14:53 All systems are negative except as listed. pc Exam: 14:53 General Appearance: no acute distress, alert. pc 14:53 EENT: normal eye inspection, ears, nose and throat normal, pharynx normal, mucous membranes moist 14:53 Neck: The exam reveals no acute abnormalities. ROM is normal and painless. No nuchal rigidity is noted.. 14:53 Respiratory: no respiratory distress, normal breath sounds. 14:53 CVS: regular pulse rate, regular rhythm, normal S1 and S2, no murmurs, strong peripheral pulses, normal capillary refill. 14:53 Abdomen: soft, non-tender, no organomegaly, normal bowel sounds. 14:53 Back: normal inspection. 14:53 Skin: skin color is normal, warm, dry. 14:53 Extremities: The extremities have a grossly normal appearance, are non-tender, without acute ROM abnormalities. 14:53 Neuro: oriented x 3, cranial nerves normal as tested, no motor deficits, no sensory deficits, Cerebellar function: normal finger to nose testing, Heel to wesley testing is normal, Romberg testing is negative, Deep tendon reflexes are normal, NIHSS score of 0. 14:53 Psych: normal mood. Vital Signs: 13:18 BP 148 / 76; Pulse 83; Resp 20; Temp 96.6(O); Pulse Ox 99% on R/A; Weight 70.31 kg / ead 155.01 lbs (R); Height 5 ft. 4 in. (162.56 cm) (R); Pain 0/10; 13:37 BP 138 / 66 (auto/); ead 13:38 Pulse 78 MON; Pulse Ox 99% on R/A; ead 13:52 BP 130 / 69 (auto/); ead 13:53 Pulse 74 MON; Pulse Ox 98% ; ead 14:07 BP 127 / 69 (auto/); ead 14:08 Pulse 80 MON; Resp 18; Pulse Ox 98% on R/A; ead 14:22 BP 118 / 68 (auto/); ead 14:23 Pulse 72 MON; Pulse Ox 98% ; ead 14:37 BP 118 / 67 (auto/); ead 14:38 Pulse 78 MON; Pulse Ox 98% ; ead 14:52 BP 121 / 69 (auto/); ead 14:53 Pulse 76 MON; Resp 20; Pulse Ox 98% on R/A; ead 14:57 Pulse 76 MON; Pulse Ox 99% ; ead 16:13 BP 125 / 67 (auto/); ead 16:14 Pulse 76 MON; Resp 16; Pulse Ox 99% on R/A; ead 16:28 BP 114 / 68 (auto/); ead 16:28 Pulse 74 MON; Pulse Ox 98% ; ead 16:43 BP 116 / 68 (auto/); ead 16:43 Pulse 76 MON; Resp 18; Pulse Ox 98% on R/A; ead 16:58 BP 122 / 65 (auto/); ead 16:58 Pulse 72 MON; Pulse Ox 98% ; ead 17:13 BP 113 / 60 (auto/); ead 17:13 Pulse 82 MON; Resp 16; Pulse Ox 98% on R/A; ead 17:28 BP 111 / 65 (auto/); ead 17:29 Pulse 78 MON; Pulse Ox 97% ; ead 18:22 BP 117 / 68; Pulse 74; Resp 18; Temp 97.1(O); Pulse Ox 98% on R/A; Pain 0/10; ead 13:18 Body Mass Index 26.61 (70.31 kg, 162.56 cm) ead MDM: 13:27 Postie/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 pc 13:27 IV Saline Lock ordered. pc 13:27 CT Head Without Contrast Ordered. EDMS 13:28 ECG WITH READING ER PHYS+CARDIAG ordered. EDMS 13:28 CBC with Diff Ordered. EDMS 13:28 MED Profile Ordered. EDMS 13:28 CIP Ordered. EDMS 13:28 Troponin Ordered. EDMS 14:45 CBC with Diff Reviewed. pc 14:45 MED Profile Reviewed. pc 14:45 CIP Reviewed. pc 14:45 Troponin Reviewed. pc 14:45 CT Head Without Contrast Reviewed. pc 14:46 MRI Screening Tool - Place on chart, inform RN ordered. pc 14:47 -MRA-Brain without contrast Ordered. EDMS 14:47 -MRI-Brain without Ordered. EDMS 14:53 Differential Diagnosis: TIA v CVA. Plan: labs, CT, EKG. Test interpretation: EKG. pc 14:56 MRI Screening Tool - Place on chart, inform RN complete. ead 16:17 Ambulate Patient to Assess Patient Safety ordered. pc 16:32 Redraw CIP &Troponin (put time in details section) ordered. pc 16:32 Repeat EKG (put time details section) ordered. pc 16:33 Financial registration complete. kf3 16:34 Redraw CIP &Troponin (put time in details section) complete. lbd 16:35 Repeat EKG (put time details section) complete. lbd 16:37 ECG WITH READING ER PHYS ordered. EDMS 16:38 CARDIAC MARKER PANEL Ordered. EDMS 17:04 [facility] Payment Agreement was scanned into [employer] and attached to record. kf3 17:37 Test interpretation: EKG. pc 17:55 CARDIAC MARKER PANEL Reviewed. pc 17:55 Data reviewed: old medical records, vital signs, nurses notes, EKG(s), lab test pc results, all radiology studies and available results. Test interpretation: LAB - all labs as ordered have been reviewed, interpreted and considered in the overall management of the clinical presentation; interpreted by Radiologist and personally reviewed, Head CT; no acute disease, MRI - interpreted by Radiologist and personally reviewed, Brain (MRI) - No acute disease Brain (MRA) - Normal. The patient has been re-examined and re-evaluated. The patient's symptoms have resolved after treatment. Physician consultation: Dr. Virginie Fields MD regarding patient's condition, and advises the medications/treatment as provided. Disposition: The historical points, examination findings, and any diagnostic results supporting the provided diagnosis, were discussed with the patient or legal guardian. The need for outpatient follow up with the provider listed on their discharge instructions was discussed. They were encouraged to return to [facility], or the nearest ED, if symptoms worsen/persist, or for any other questions/concerns. EC:53 Rate is 73 beats/min. Rhythm is regular, Normal Sinus Rhythm. QRS [place] is Normal. [place] pc interval is normal. QRS interval is normal. QT interval is normal. No Q waves. T waves are Normal. No ST changes noted. Clinical impression: Normal Sinus Rhythm. 17:37 Rate is 74 beats/min. Rhythm is regular, Normal Sinus Rhythm. QRS [place] is Normal. [place] pc interval is normal. QRS interval is normal. QT interval is normal. No Q waves. T waves are Normal. No ST changes noted. Clinical impression: Normal Sinus Rhythm. Signatures: Dispatcher [employer] EDMS Regis Blandon MD MD pc Daly, Linda, Business Continuity Management Director Unit lbd Avni Johnson, Reg Reg kf3 Teagan Salas,RN RN earony The chart was reviewed and I authenticate all verbal orders and agree with the evaluation and treatment provided.Corrections: (The following items were deleted from the chart) 14:56 14:48 At approximately 11:30am, while helping lift his disabled 's leg into a pc chair, he felt his left arm go numb, described as pins and needles pc Attachments: 17:04 [facility] Payment Agreement kf3 Chart Complete MTDD
--- NOTE | 2016-11-12 22:21 | EDDOCDS ---
Physician Documentation [facility] Name: Jeancarlos Giles Age: 66 yrs Sex: Male : 1950 Arrival Date: 11/10/2016 Time: 13:15 Bed 19 Private MD: Gelacio Alvarez M.D. Disposition: 11/10 17:55 Critical Care: Critical care not applicable. pc Disposition: 11/10/16 17:56 Discharged to Home/Self Care. Impression: Paresthesia of skin. - Condition is Stable. - Discharge Instructions: Paresthesia. - Medication Reconciliation, Local Pharmacy Hours form. - Follow up: Gelacio Alvarez MD; When: Call to arrange an appointment; Reason: Continuance of care. - Problem is new. - Symptoms are resolved. HPI: 14:47 This 66 yrs old Male presents to ER via Ambulance with complaints of Weakness.pc 14:47 The history is obtained from the patient. pc 14:48 At approximately 11:30am, while helping lift his disabled 's leg into a chair, he pc felt his left arm go numb, described as pins and needles. He then thought his left upper arm felt swollen, then an "odd feeling" down his left torso and into his left leg. He denied having any chest pain, headache, visual changes, or any other symptom. The symptoms started to resolve after 60 minutes. He called for EMS shortly after that time. He arrives stating his symptoms are now all but gone, with only the feeling that his left arm feels swollen. 14:53 At their worst, the symptoms were moderate. In the emergency department, the symptoms pc are mild. The patient has not experienced similar symptoms in the past. The patient has been recently seen by their primary care provider, for a routine, regularly scheduled appointment. Historical: - Allergies: PENICILLINS; - Home Meds: 1. aspirin 81 mg Oral tab once daily (Last dose: 11/10/2016) 2. vitamin [id number]-[id number] acid oral Unknown oral once daily 3. meloxicam 15 mg oral tab 1 tab once daily 4. 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 - Social history: Smoking status: Patient states was never smoker of tobacco. No barriers to communication noted, The patient speaks fluent [place], Speaks appropriately for age. - Family history: Not pertinent. - Hospitalizations: : No recent hospitalization is reported. - : The pt / caregiver states he / she is not on anticoagulants. Home medication list is obtained from the patient, Home medication list is obtained from patients' pharmacy. - Exposure Risk Screening:: None identified. - Immunization history:: All immunizations up-to-date. - Social history:: the patient smokes cigarettes the patient does not drink alcohol. ROS: 14:53 All systems are negative except as listed. pc Exam: 14:53 General Appearance: no acute distress, alert. pc 14:53 EENT: normal eye inspection, ears, nose and throat normal, pharynx normal, mucous membranes moist 14:53 Neck: The exam reveals no acute abnormalities. ROM is normal and painless. No nuchal rigidity is noted.. 14:53 Respiratory: no respiratory distress, normal breath sounds. 14:53 CVS: regular pulse rate, regular rhythm, normal S1 and S2, no murmurs, strong peripheral pulses, normal capillary refill. 14:53 Abdomen: soft, non-tender, no organomegaly, normal bowel sounds. 14:53 Back: normal inspection. 14:53 Skin: skin color is normal, warm, dry. 14:53 Extremities: The extremities have a grossly normal appearance, are non-tender, without acute ROM abnormalities. 14:53 Neuro: oriented x 3, cranial nerves normal as tested, no motor deficits, no sensory deficits, Cerebellar function: normal finger to nose testing, Heel to wesley testing is normal, Romberg testing is negative, Deep tendon reflexes are normal, NIHSS score of 0. 14:53 Psych: normal mood. Vital Signs: 13:18 BP 148 / 76; Pulse 83; Resp 20; Temp 96.6(O); Pulse Ox 99% on R/A; Weight 70.31 kg / ead 155.01 lbs (R); Height 5 ft. 4 in. (162.56 cm) (R); Pain 0/10; 13:37 BP 138 / 66 (auto/); ead 13:38 Pulse 78 MON; Pulse Ox 99% on R/A; ead 13:52 BP 130 / 69 (auto/); ead 13:53 Pulse 74 MON; Pulse Ox 98% ; ead 14:07 BP 127 / 69 (auto/); ead 14:08 Pulse 80 MON; Resp 18; Pulse Ox 98% on R/A; ead 14:22 BP 118 / 68 (auto/); ead 14:23 Pulse 72 MON; Pulse Ox 98% ; ead 14:37 BP 118 / 67 (auto/); ead 14:38 Pulse 78 MON; Pulse Ox 98% ; ead 14:52 BP 121 / 69 (auto/); ead 14:53 Pulse 76 MON; Resp 20; Pulse Ox 98% on R/A; ead 14:57 Pulse 76 MON; Pulse Ox 99% ; ead 16:13 BP 125 / 67 (auto/); ead 16:14 Pulse 76 MON; Resp 16; Pulse Ox 99% on R/A; ead 16:28 BP 114 / 68 (auto/); ead 16:28 Pulse 74 MON; Pulse Ox 98% ; ead 16:43 BP 116 / 68 (auto/); ead 16:43 Pulse 76 MON; Resp 18; Pulse Ox 98% on R/A; ead 16:58 BP 122 / 65 (auto/); ead 16:58 Pulse 72 MON; Pulse Ox 98% ; ead 17:13 BP 113 / 60 (auto/); ead 17:13 Pulse 82 MON; Resp 16; Pulse Ox 98% on R/A; ead 17:28 BP 111 / 65 (auto/); ead 17:29 Pulse 78 MON; Pulse Ox 97% ; ead 18:22 BP 117 / 68; Pulse 74; Resp 18; Temp 97.1(O); Pulse Ox 98% on R/A; Pain 0/10; ead 13:18 Body Mass Index 26.61 (70.31 kg, 162.56 cm) ead MDM: 13:27 Healthcare Economics Consultant/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 pc 13:27 IV Saline Lock ordered. pc 13:27 CT Head Without Contrast Ordered. EDMS 13:28 ECG WITH READING ER PHYS+CARDIAG ordered. EDMS 13:28 CBC with Diff Ordered. EDMS 13:28 MED Profile Ordered. EDMS 13:28 CIP Ordered. EDMS 13:28 Troponin Ordered. EDMS 14:45 CBC with Diff Reviewed. pc 14:45 MED Profile Reviewed. pc 14:45 CIP Reviewed. pc 14:45 Troponin Reviewed. pc 14:45 CT Head Without Contrast Reviewed. pc 14:46 MRI Screening Tool - Place on chart, inform RN ordered. pc 14:47 -MRA-Brain without contrast Ordered. EDMS 14:47 -MRI-Brain without Ordered. EDMS 14:53 Differential Diagnosis: TIA v CVA. Plan: labs, CT, EKG. Test interpretation: EKG. pc 14:56 MRI Screening Tool - Place on chart, inform RN complete. ead 16:17 Ambulate Patient to Assess Patient Safety ordered. pc 16:32 Redraw CIP &Troponin (put time in details section) ordered. pc 16:32 Repeat EKG (put time details section) ordered. pc 16:33 Financial registration complete. kf3 16:34 Redraw CIP &Troponin (put time in details section) complete. lbd 16:35 Repeat EKG (put time details section) complete. lbd 16:37 ECG WITH READING ER PHYS ordered. EDMS 16:38 CARDIAC MARKER PANEL Ordered. EDMS 17:04 [facility] Payment Agreement was scanned into [employer] and attached to record. kf3 17:37 Test interpretation: EKG. pc 17:55 CARDIAC MARKER PANEL Reviewed. pc 17:55 Data reviewed: old medical records, vital signs, nurses notes, EKG(s), lab test pc results, all radiology studies and available results. Test interpretation: LAB - all labs as ordered have been reviewed, interpreted and considered in the overall management of the clinical presentation; interpreted by Radiologist and personally reviewed, Head CT; no acute disease, MRI - interpreted by Radiologist and personally reviewed, Brain (MRI) - No acute disease Brain (MRA) - Normal. The patient has been re-examined and re-evaluated. The patient's symptoms have resolved after treatment. Physician consultation: Dr. Virginie Fields MD regarding patient's condition, and advises the medications/treatment as provided. Disposition: The historical points, examination findings, and any diagnostic results supporting the provided diagnosis, were discussed with the patient or legal guardian. The need for outpatient follow up with the provider listed on their discharge instructions was discussed. They were encouraged to return to [facility], or the nearest ED, if symptoms worsen/persist, or for any other questions/concerns. EC:53 Rate is 73 beats/min. Rhythm is regular, Normal Sinus Rhythm. QRS [place] is Normal. [place] pc interval is normal. QRS interval is normal. QT interval is normal. No Q waves. T waves are Normal. No ST changes noted. Clinical impression: Normal Sinus Rhythm. 17:37 Rate is 74 beats/min. Rhythm is regular, Normal Sinus Rhythm. QRS [place] is Normal. [place] pc interval is normal. QRS interval is normal. QT interval is normal. No Q waves. T waves are Normal. No ST changes noted. Clinical impression: Normal Sinus Rhythm. Signatures: Dispatcher [employer] EDMS Regis Blandon MD MD pc Daly, Linda, Television Announcer Unit lbd Avni Johnson, Reg Reg kf3 Teagan Salas,RN RN earony The chart was reviewed and I authenticate all verbal orders and agree with the evaluation and treatment provided.Corrections: (The following items were deleted from the chart) 14:56 14:48 At approximately 11:30am, while helping lift his disabled 's leg into a pc chair, he felt his left arm go numb, described as pins and needles pc Attachments: 17:04 [facility] Payment Agreement kf3 Chart Complete MTDD
== END 2016-11-10 18:23 | disposition home or self-care (01) ==
LOC: M ED 13:15
DX: R20.2 Paresthesia of skin (principal); M19.90 Unspecified osteoarthritis, unspecified site; I48.91 Unspecified atrial fibrillation; K31.9 Disease of stomach and duodenum, unspecified; Z79.899 Other long term (current) drug therapy; Z79.82 Long term (current) use of aspirin; Z88.0 Allergy status to penicillin; F17.210 Nicotine dependence, cigarettes, uncomplicated

== ENCOUNTER → 2017-04-02 | Outpatient (CLI) | payer OTHER ==
[~2017-04-02] VITALS: Ht 162.6 cm; Wt 69.4 kg
[~2017-04-02] MED LIST: ASPI1TAB PO; FAMO1TAB11 PO; LIDOCAINE 2% INJ 100 MG/5 ML SDV (FOR ANES.) As Ordered ONE; NS 1,000 ML IV ONE; OMEP20CA3 PO; PROPOFOL 200 MG/20 ML VIAL As Ordered ONE; ROLA1CHW PO
--- NOTE | 2017-04-02 11:02 | ROOR ---
Patient Name: Jeancarlos Giles Procedure Date: 04/02/2017 10:41 AM Date of : 1950 Age: 66 Room: [facility] Gender: Male Note Status: Finalized Procedure: Upper GI endoscopy + Balloon Dilatation Indications: Dysphagia, Heartburn Providers: Corbin Han MD Referring MD: Gelacio Alvarez MD Requesting Provider: Medicines: Monitored Anesthesia Care Complications: No immediate complications. Procedure: Pre-Anesthesia Assessment: - The heart rate, respiratory rate, oxygen saturations, blood pressure, adequacy of pulmonary ventilation, and response to care were monitored throughout the procedure. The Endoscope was introduced through the mouth, and advanced to the second part of duodenum. The upper GI endoscopy was accomplished without difficulty. The patient tolerated the procedure well. Findings: A web was found at the cricopharyngeus. A TTS dilator was passed through the scope. Dilation with an 8-9-10 mm balloon dilator was performed to 10 mm. A severe Schatzki ring (acquired) was found at the gastroesophageal junction. A TTS dilator was passed through the scope. Dilation with an 8-9-10 mm balloon dilator was performed to 10 mm. The exam of the stomach was otherwise normal. The exam of the duodenum was otherwise normal. 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 - Severe Schatzki ring. Dilated. - No specimens collected. - The examination was otherwise normal. Recommendation: - Patient has a contact number available for emergencies. The signs and symptoms of potential delayed complications were discussed with the patient. Return to normal activities tomorrow. Written discharge instructions were provided to the patient. - High fiber diet. - Discharge patient to home. - Continue present medications. Corbin Han MD Corbin Han MD 04/02/2017 11:02:07 AM This report has been signed electronically. Number of Addenda: 0 Note Initiated On: 04/02/2017 10:41 AM Estimated Blood Loss: Estimated blood loss: none.
[2017-04-02 11:35] VITALS: BP 106/66
== END | disposition home or self-care (01) ==
LOC: M OPP 10:00
PROVIDERS: ATTEND Internal Medicine Gastroenterology
DX: R13.10 Dysphagia, unspecified (principal); R12 Heartburn; Q39.4 Esophageal web; K22.2 Esophageal obstruction; R63.4 Abnormal weight loss; R63.0 Anorexia; K21.9 Gastro-esophageal reflux disease without esophagitis; R19.5 Other fecal abnormalities; K62.5 Hemorrhage of anus and rectum; R00.8 Other abnormalities of heart beat; Z87.19 Personal history of other diseases of the digestive system; D86.9 Sarcoidosis, unspecified; R06.02 Shortness of breath; M54.9 Dorsalgia, unspecified; Z86.79 Personal history of other diseases of the circulatory system; Z88.0 Allergy status to penicillin; Z79.82 Long term (current) use of aspirin; Z79.899 Other long term (current) drug therapy

== ENCOUNTER → 2017-11-13 | Outpatient (REF) | payer OTHER ==
[2017-11-13 17:17] LABS: ALBUMIN/GLOBULIN RATIO 1.25 (1.00-1.93); ALKALINE PHOSPHATASE 114 U/L (45-117); ALT/SGPT 22 U/L (12-78); ANION GAP 5 MEQ/L (8-16); AST/SGOT 18 U/L (7-37); BILIRUBIN,TOTAL 1.5 MG/DL (0.2-1.0); BLOOD UREA NITROGEN 13 MG/DL (7-18); CALCIUM LEVEL 8.8 MG/DL (8.8-10.2); CARBON DIOXIDE LEVEL 31 MEQ/L (21-32); CHLORIDE LEVEL 104 MEQ/L (98-107); CREATININE FOR GFR 1.01 MG/DL (0.70-1.30); GLOMERULAR FILTRATION RATE > 60.0 (>49); GLUCOSE, FASTING 78 MG/DL (70-100); POTASSIUM SERUM 4.6 MEQ/L (3.5-5.1); SODIUM LEVEL 140 MEQ/L (136-145); TOTAL PROTEIN 7.2 GM/DL (6.4-8.2)
[2017-11-13 19:23] LABS: BASO # 0.1 10^3/uL (0.0-0.2); BASO % 0.6 % (0.0-1.0); EOS # 0.4 10^3/uL (0.0-0.50); EOS % 5.3 % (0.0-3.0); HEMATOCRIT 42.6 % (42.0-52.0); HEMOGLOBIN 14.7 g/dl (14.0-18.0); IMMATURE GRANULOCYTE % 0.3 % (0-3.0); LYMPH # 2.2 10^3/uL (1.5-4.5); LYMPH % 27.4 % (24.0-44.0); MEAN CORPUSCULAR HEMOGLOBIN 30.9 pg (27.0-33.0); MEAN CORPUSCULAR HGB CONC 34.5 g/dl (32.0-36.5); MEAN CORPUSCULAR VOLUME 89.7 fl (80.0-96.0); MONO # 0.6 10^3/uL (0.0-0.8); NEUTROPHILS # 4.6 10^3/uL (1.8-7.7); NEUTROPHILS % 58.4 % (36.0-66.0); PLATELET COUNT, AUTOMATED 169 10^3/uL (150-450); RED BLOOD COUNT 4.75 10^6/uL (4.30-6.10); RED CELL DISTRIBUTION WIDTH 12.7 % (11.5-14.5); WHITE BLOOD COUNT 7.9 10^3/uL (4.0-10.0)
[2017-11-13 19:59] LABS: ERYTHROCYTE SEDIMENTATION RATE 6 mm/hr (0-20)
== END ==
LOC: M SFHCCLAY 11:34
DX: D86.9 Sarcoidosis, unspecified (principal)
CPT/HCPCS: 80053

== ENCOUNTER → 2019-01-10 | Outpatient (REF) | payer MEDICARE ==
[~2019-01-10] MED LIST changes: -ASPI1TAB PO; +ASPI81TA26 PO; -LIDOCAINE 2% INJ 100 MG/5 ML SDV (FOR ANES.) As Ordered ONE; -NS 1,000 ML IV ONE; -PROPOFOL 200 MG/20 ML VIAL As Ordered ONE
[2019-01-10 11:35] LABS: BASO % 0.5 % (0.0-1.0); EOS # 0.5 10^3/uL (0.0-0.50); EOS % 5.6 % (0.0-3.0); HEMATOCRIT 41.5 % (42.0-52.0); HEMOGLOBIN 14.2 g/dl (13.5-17.5); LYMPH # 1.7 10^3/uL (1.5-4.5); LYMPH % 20.6 % (24.0-44.0); MEAN CORPUSCULAR HEMOGLOBIN 30.9 pg (27.0-33.0); MEAN CORPUSCULAR HGB CONC 34.2 g/dl (32.0-36.5); MEAN CORPUSCULAR VOLUME 90.4 fl (80.0-96.0); MONO # 0.5 10^3/uL (0.0-0.8); MONO % 6.7 % (0.0-5.0); NEUTROPHILS # 5.3 10^3/uL (1.8-7.7); NEUTROPHILS % 66.2 % (36.0-66.0); PLATELET COUNT, AUTOMATED 166 10^3/uL (150-450); RED BLOOD COUNT 4.59 10^6/uL (4.30-6.10); WHITE BLOOD COUNT 8.1 10^3/uL (4.0-10.0)
[2019-01-10 11:45] LABS: ALBUMIN 3.5 GM/DL (3.2-5.2); ALT/SGPT 23 U/L (12-78); BILIRUBIN,TOTAL 1.1 MG/DL (0.2-1.0); BLOOD UREA NITROGEN 12 MG/DL (7-18); CALCIUM LEVEL 8.2 MG/DL (8.8-10.2); CARBON DIOXIDE LEVEL 29 MEQ/L (21-32); CHLORIDE LEVEL 107 MEQ/L (98-107); CREATININE FOR GFR 1.06 MG/DL (0.70-1.30); GLOMERULAR FILTRATION RATE > 60.0 (>49); GLUCOSE, FASTING 158 MG/DL (70-100); POTASSIUM SERUM 4.2 MEQ/L (3.5-5.1); SODIUM LEVEL 139 MEQ/L (136-145); TOTAL PROTEIN 7.1 GM/DL (6.4-8.2)
[2019-01-10 12:06] LABS: ERYTHROCYTE SEDIMENTATION RATE 5 mm/hr (0-20)
== END ==
LOC: M SFHCCLAY 09:03
PROVIDERS: ATTEND Family Medicine
DX: D86.9 Sarcoidosis, unspecified (principal)

== ENCOUNTER 2019-07-07 06:58 | Day surgery (SDC) | payer MEDICARE ==
[~2019-07-07] VITALS: Ht 162.6 cm; Wt 70.3 kg
[~2019-07-07 06:58] MED LIST changes: -OMEP20CA3 PO; +OMEP20CA4 PO; +VITA-113 SL
[2019-07-07] MEDS ORDERED: NS 1,000 ML IV ONE (07:00)
[2019-07-07] MEDS ORDERED: fentaNYL 100 MCG/2 ML INJECTION (J3010) As Ordered ONE (07:09)
[2019-07-07] MEDS ORDERED: LIDOCAINE 2% INJ 100 MG/5 ML SDV (FOR ANES.) As Ordered ONE (07:09)
[2019-07-07] MEDS ORDERED: PROPOFOL 500 MG/50 ML VIAL As Ordered ONE (07:10)
--- NOTE | 2019-07-07 08:30 | ROOR ---
Patient Name: Jeancarlos Giles Procedure Date: 07/07/2019 8:09 AM Date of : 1950 Age: 69 Room: [facility] Gender: Male Note Status: Finalized Procedure: Upper GI endoscopy + Balloon Dilatation Indications: Dysphagia, Heartburn Providers: Corbin Han MD Referring MD: Gelacio Alvarez MD Requesting Provider: Medicines: Monitored Anesthesia Care Complications: No immediate complications. Procedure: Pre-Anesthesia Assessment: - The heart rate, respiratory rate, oxygen saturations, blood pressure, adequacy of pulmonary ventilation, and response to care were monitored throughout the procedure. The Endoscope was introduced through the mouth, and advanced to the second part of duodenum. The upper GI endoscopy was accomplished without difficulty. The patient tolerated the procedure well. Findings: The Z-line was regular and was found 40 cm from the incisors. Multiple benign-appearing, intrinsic severe (stenosis; an endoscope cannot pass) stenoses were found 15 cm from the incisors. The stenoses were traversed after dilation. A TTS dilator was passed through the scope. Dilation with a 15-16.5-18 mm balloon dilator was performed to 15 mm. The dilation site was examined and showed complete resolution of luminal narrowing. One benign-appearing, intrinsic severe (stenosis; an endoscope cannot pass) stenosis was found 40 cm from the incisors. The stenosis was traversed after dilation. A TTS dilator was passed through the scope. Dilation with a 15-16.5-18 mm balloon dilator was performed to 15 mm. The exam was otherwise without abnormality. Impression: - Z-line regular, 40 cm from the incisors. - Benign-appearing esophageal stenoses. Dilated. - Benign-appearing esophageal stenosis. Dilated. - The examination was otherwise normal. - No specimens collected. - The examination was otherwise normal. Recommendation: - Patient has a contact number available for emergencies. The signs and symptoms of potential delayed complications were discussed with the patient. Return to normal activities tomorrow. Written discharge instructions were provided to the patient. - Discharge patient to home. - Follow an antireflux regimen. - Use Prilosec (omeprazole) 40 mg PO daily. - Return to referring physician. - The findings and recommendations were discussed with the patient's family. Corbin Han MD Corbin Han MD 07/07/2019 8:29:52 AM Electronically signed by Corbin Han MD Number of Addenda: 0 Note Initiated On: 07/07/2019 8:09 AM Estimated Blood Loss: Estimated blood loss: none.
[2019-07-07] MEDS ORDERED: PHENYLephrine HCL 500 MCG/5 ML (100MCG/ML) SYRINGE (J2370) As Ordered ONE (08:32)
[2019-07-07] MEDS ORDERED: GLYCOPYRROLATE INJ 0.2 MG/ML 2 ML VIAL As Ordered ONE (08:39)
--- NOTE | 2019-07-07 08:54 | ROOR ---
Patient Name: Jeancarlos Giles Procedure Date: 07/07/2019 8:10 AM Date of : 1950 Age: 69 Room: [facility] Gender: Male Note Status: Finalized Procedure: Total Colonoscopy to Cecum + Cold Snare Polypectomy Indications: High risk colon cancer surveillance: Personal history of colonic polyps, Last colonoscopy: 2013 Providers: Corbin Han MD Referring MD: Gelacio Alvarez MD Requesting Provider: Medicines: Monitored Anesthesia Care Complications: No immediate complications. Procedure: Pre-Anesthesia Assessment: - The heart rate, respiratory rate, oxygen saturations, blood pressure, adequacy of pulmonary ventilation, and response to care were monitored throughout the procedure. The Colonoscope was introduced through the anus and advanced to the cecum, identified by appendiceal orifice and ileocecal valve. The colonoscopy was performed without difficulty. The patient tolerated the procedure well. The quality of the bowel preparation was excellent. Findings: The perianal and digital rectal examinations were normal. Non-bleeding internal hemorrhoids were found during retroflexion. The hemorrhoids were small and Grade I (internal hemorrhoids that do not prolapse). Multiple small and large-mouthed diverticula were found in the recto-sigmoid colon, sigmoid colon and descending colon. A small polyp was found in the hepatic flexure. The polyp was carpet-like. The polyp was removed with a cold snare. Resection and retrieval were complete. The exam was otherwise without abnormality on direct and retroflexion views. Impression: - Non-bleeding internal hemorrhoids. - Diverticulosis in the recto-sigmoid colon, in the sigmoid colon and in the descending colon. - One small polyp at the hepatic flexure, removed with a cold snare. Resected and retrieved. - The examination was otherwise normal on direct and retroflexion views. - The exam was otherwise normal to the cecum. Recommendation: - Patient has a contact number available for emergencies. The signs and symptoms of potential delayed complications were discussed with the patient. Return to normal activities tomorrow. Written discharge instructions were provided to the patient. - High fiber diet. - Discharge patient to home. - Continue present medications. - Await pathology results. - Telephone GI clinic for pathology results in 1 week. - Repeat colonoscopy for surveillance based on pathology results. - Return to referring physician. - Check Portal Online for Path Results.([email or web address] - The findings and recommendations were discussed with the patient's family. Corbin Han MD Corbin Han MD 07/07/2019 8:54:36 AM Electronically signed by Corbin Han MD Number of Addenda: 0 Note Initiated On: 07/07/2019 8:10 AM Estimated Blood Loss: Estimated blood loss: none.
[2019-07-07 09:31] VITALS: BP 122/76
== END 2019-07-07 09:33 | disposition home or self-care (01) ==
LOC: M OPP 06:58
PROVIDERS: ATTEND Internal Medicine Gastroenterology
DX: Z12.11 Encounter for screening for malignant neoplasm of colon (principal); Z86.010 Personal history of colon polyps; K64.0 First degree hemorrhoids; D12.3 Benign neoplasm of transverse colon; K57.30 Diverticulosis of large intestine without perforation or abscess without bleeding; K22.2 Esophageal obstruction; R13.10 Dysphagia, unspecified; R12 Heartburn; Z79.82 Long term (current) use of aspirin; Z88.0 Allergy status to penicillin
CPT/HCPCS: 43249; 45385; 88305; J2370; J3010

== ENCOUNTER → 2019-11-21 | Outpatient (CLI) | payer MEDICARE ==
[~2019-11-21] MED LIST changes: +OMEP1CAP73 PO; -OMEP20CA4 PO
--- NOTE | 2019-11-21 17:16 | REP ---
LEFT HAND SERIES, FOUR VIEWS: Four views left hand performed. No acute fracture or dislocation is seen. There is mild to moderate narrowing at the joint between the scaphoid and adjacent trapezium and trapezoid bones. There is slight narrowing at the joint between the trapezium and base of first metacarpal. There is mild narrowing at the first metacarpophalangeal and interphalangeal joints with a small spur at the base of the first distal phalanx. There is mild diffuse narrowing of the remaining distal interphalangeal joints. There are mild vascular calcifications in the soft tissues of the lateral wrist. IMPRESSION: Mild degenerative changes. Unreviewed
--- NOTE | 2019-11-21 17:28 | REP ---
LEFT FOREARM, TWO VIEWS: Two views of the left forearm are performed. There is no acute fracture or dislocation. There is mild spurring of the coronoid process and olecranon. I see no other abnormalities. IMPRESSION: Mild spurring proximal ulna. Unreviewed
== END ==
LOC: M CLY 15:26
PROVIDERS: ATTEND Family Medicine
DX: M19.042 Primary osteoarthritis, left hand (principal); M79.602 Pain in left arm

== ENCOUNTER → 2020-06-11 | Outpatient (REF) | payer MEDICARE ==
[2020-06-11 13:01] LABS: HEMATOCRIT 43.1 % (42.0-52.0); HEMOGLOBIN 14.2 g/dl (13.5-17.5); MEAN CORPUSCULAR HEMOGLOBIN 30.4 pg (27.0-33.0); MEAN CORPUSCULAR HGB CONC 32.9 g/dl (32.0-36.5); MEAN CORPUSCULAR VOLUME 92.3 fl (80.0-96.0); PLATELET COUNT, AUTOMATED 165 10^3/uL (150-450); RED BLOOD COUNT 4.67 10^6/uL (4.30-6.10); WHITE BLOOD COUNT 6.7 10^3/uL (4.0-10.0)
[2020-06-11 13:14] LABS: BLOOD UREA NITROGEN 15 MG/DL (7-18); CALCIUM LEVEL 8.6 MG/DL (8.8-10.2); CARBON DIOXIDE LEVEL 29 MEQ/L (21-32); CHLORIDE LEVEL 109 MEQ/L (98-107); CHOLESTEROL LEVEL 141 MG/DL (<200); CHOLESTEROL RISK RATIO 4.406 (<5); CREATININE FOR GFR 1.09 MG/DL (0.70-1.30); FREE T4 1.01 NG/DL (0.76-1.46); GLOMERULAR FILTRATION RATE > 60.0 (>42); GLUCOSE, FASTING 99 MG/DL (70-100); HDL CHOLESTEROL 32 MG/DL (>40); LDL CHOLESTEROL 90 MG/DL (<100); NON-HDL-C 109 MG/DL; POTASSIUM SERUM 4.7 MEQ/L (3.5-5.1); SODIUM LEVEL 142 MEQ/L (136-145); TRIGLYCERIDES LEVEL 97 MG/DL (<150)
== END ==
LOC: M SFHCCLAY 11:59
PROVIDERS: ATTEND Family Medicine
DX: Z13.220 Encounter for screening for lipoid disorders (principal); Z13.1 Encounter for screening for diabetes mellitus; R42 Dizziness and giddiness; E07.9 Disorder of thyroid, unspecified; E78.00 Pure hypercholesterolemia, unspecified

== ENCOUNTER → 2020-12-07 | Outpatient (CLI) | payer MEDICARE ==
--- NOTE | 2020-12-07 11:55 | REP ---
INDICATION: RT ANTERIOR NECK TENDERNESS ? CYST VS SOLID. COMPARISON: None. TECHNIQUE: Multiple sonographic images of the thyroid. FINDINGS: The thyroid right lobe measures 3.6 x 1.6 x 1.4 cm. The thyroid left lobe measures 4.0 x 1.5 x 1.9 cm. The isthmus is 3 mm in thickness. The thyroid is normal size. The thyroid parenchyma in the right lobe and isthmus is homogeneous. There are 3 small complex cysts in the left lobe, likely adenomatous cysts, 2 in the midpole each measuring up to 4 mm and 1 in the lower pole measuring up to 3 mm. IMPRESSION: There are 3 small cysts in the thyroid left lobe, likely adenomatous cysts as described. Otherwise, negative thyroid ultrasound. <Electronically signed by Yakov Michel > 12/07/20 [id number]
== END ==
LOC: M RAD 10:54
PROVIDERS: ATTEND Family Medicine
DX: E04.2 Nontoxic multinodular goiter (principal); M54.2 Cervicalgia

== ENCOUNTER → 2021-06-21 | Outpatient (REF) | payer MEDICARE | LOC: M SFHCCLAY 10:14 | PROVIDERS: ATTEND Family Medicine | DX: L57.0 Actinic keratosis (principal) ==

== ENCOUNTER → 2021-08-31 | Outpatient (REF) | payer MEDICARE | LOC: M SFHCCAPE 14:13 | PROVIDERS: ATTEND Physician Assistant | DX: R31.9 Hematuria, unspecified (principal) ==

== ENCOUNTER → 2021-09-01 | Outpatient (CLI) | payer MEDICARE ==
[~2021-09-01] MED LIST changes: +ISOVUE-370 76% 100ML VIAL As Ordered ONE
--- NOTE | 2021-09-01 15:19 | REP ---
INDICATION: HEMATURIA ABD PAIN. COMPARISON: None TECHNIQUE: Axial precontrast, contrast-enhanced and delayed images from the lung bases to the pubic symphysis using 100 cc Isovue 370 intravenous contrast material. Coronal and sagittal reformations obtained. This CT examination was performed using the following dose reduction techniques: Automated exposure control, adjustment of mA and/or kv according to the patient's size, and the use of iterative reconstruction technique. FINDINGS: Evaluation of the kidneys includes 1.8 cm simple right renal cyst and small 2 mm nonobstructing left renal calculus. No hydroureteronephrosis, perinephric stranding or renal mass lesion. Delayed images demonstrate normal appearance of the collecting system. There is significant heterogeneous enlargement of the prostate gland with mass effect on the base of the bladder. Liver, spleen, pancreas, and bilateral adrenal glands are normal. Evidence for prior cholecystectomy. The enteric system is without obstruction or acute inflammatory process. Normal terminal ileum and appendix identified in the right lower quadrant. Sigmoid diverticula noted without acute diverticulitis.. Pelvis demonstrates enlarged heterogeneous prostate gland with mass effect on the base of the bladder. Prostate gland measures roughly 6 cm diameter. No ascites. No free air. No obvious adenopathy. Abdominal aorta and vasculature appear normal. Musculoskeletal structures demonstrate degenerative changes. IMPRESSION: 1. Kidneys demonstrate 1.8 cm simple right renal cyst and 2 mm nonobstructing left renal calculus without hydronephrosis or further renal pathology. 2. Heterogeneous enlarged prostate gland measuring 6 cm diameter with mass effect on the base of the bladder. 3. Nonacute findings as described above. <Electronically signed by Lawson Serrano > 09/01/21 [id number]
== END ==
LOC: M RAD 12:51
PROVIDERS: ATTEND Physician Assistant
DX: N28.1 Cyst of kidney, acquired (principal); R31.9 Hematuria, unspecified; R10.84 Generalized abdominal pain
CPT/HCPCS: 74178; Q9967

== ENCOUNTER → 2021-09-13 | Outpatient (REF) | payer MEDICARE ==
[~2021-09-13] MED LIST changes: -ISOVUE-370 76% 100ML VIAL As Ordered ONE
== END ==
LOC: M SFHCCAPE 14:56
PROVIDERS: ATTEND Physician Assistant
DX: R43.2 Parageusia (principal)

== ENCOUNTER → 2021-09-15 | Outpatient (REF) | payer MEDICARE ==
[2021-09-15 16:00] LABS: BASO % 0.5 % (0.0-1.0); EOS # 0.3 10^3/uL (0.0-0.5); EOS % 3.7 % (0.0-3.0); HEMATOCRIT 37.7 % (42.0-52.0); HEMOGLOBIN 12.4 g/dl (13.5-17.5); LYMPH # 0.8 10^3/uL (1.5-5.0); LYMPH % 9.5 % (24.0-44.0); MEAN CORPUSCULAR HEMOGLOBIN 30.5 pg (27.0-33.0); MEAN CORPUSCULAR HGB CONC 32.9 g/dl (32.0-36.5); MEAN CORPUSCULAR VOLUME 92.9 fl (80.0-96.0); MONO % 11.7 % (2.0-8.0); NEUTROPHILS # 6.1 10^3/uL (1.5-8.5); PLATELET COUNT, AUTOMATED 230 10^3/uL (150-450); RED BLOOD COUNT 4.06 10^6/uL (4.30-6.10); WHITE BLOOD COUNT 8.3 10^3/uL (4.0-10.0)
[2021-09-15 16:33] LABS: ALBUMIN 2.7 GM/DL (3.2-5.2); ALT/SGPT 55 U/L (12-78); BILIRUBIN,TOTAL 2.2 MG/DL (0.2-1.0); BLOOD UREA NITROGEN 19 MG/DL (7-18); C REACTIVE PROTEIN QUANTITATIV 5.35 MG/DL (0.00-0.30); CARBON DIOXIDE LEVEL 27 MEQ/L (21-32); CHLORIDE LEVEL 105 MEQ/L (98-107); CREATININE FOR GFR 1.16 MG/DL (0.70-1.30); GLOMERULAR FILTRATION RATE > 60.0 (>42); GLUCOSE, FASTING 98 MG/DL (70-100); POTASSIUM SERUM 4.6 MEQ/L (3.5-5.1); SODIUM LEVEL 136 MEQ/L (136-145); TOTAL PROTEIN 6.5 GM/DL (6.4-8.2)
[2021-09-15 17:25] LABS: FOLATE 5.7 NG/ML; VITAMIN B12 LEVEL > 2000 PG/ML
[2021-09-15 17:35] LABS: HEPATITIS B SURFACE ANTIGEN NEGATIVE (NEGATIVE)
[2021-09-15 18:02] LABS: HEPATITIS C VIRUS ABY INDEX 0.1 INDEX (<0.8)
[2021-09-15 18:03] LABS: HEPATITIS B CORE ANTIBODY IGM NEGATIVE (NEGATIVE)
[2021-09-15 20:16] LABS: ERYTHROCYTE SEDIMENTATION RATE 69 mm/hr (0-20)
== END ==
LOC: M SFHCCLAY 10:44
PROVIDERS: ATTEND Physician Assistant
DX: R74.8 Abnormal levels of other serum enzymes (principal); N41.0 Acute prostatitis; R43.2 Parageusia

== ENCOUNTER → 2021-09-26 | Outpatient (CLI) | payer MEDICARE | LOC: M CLY 15:18 | PROVIDERS: ATTEND Physician Assistant | DX: R74.8 Abnormal levels of other serum enzymes (principal); R93.89 Abnormal findings on diagnostic imaging of other specified body structures ==

== ENCOUNTER → 2021-09-26 | Outpatient (REF) | payer MEDICARE | LOC: M SFHCCLAY 15:52 | PROVIDERS: ATTEND Physician Assistant | DX: R63.4 Abnormal weight loss (principal); R74.8 Abnormal levels of other serum enzymes ==

== ENCOUNTER → 2021-09-27 | Outpatient (REF) | payer MEDICARE ==
[2021-09-28 13:25] LABS: ALBUMIN 3.1 GM/DL (3.2-5.2); ALT/SGPT 30 U/L (12-78); BILIRUBIN,TOTAL 0.8 MG/DL (0.2-1.0); BLOOD UREA NITROGEN 10 MG/DL (7-18); CALCIUM LEVEL 8.5 MG/DL (8.8-10.2); CARBON DIOXIDE LEVEL 28 MEQ/L (21-32); CHLORIDE LEVEL 103 MEQ/L (98-107); CREATININE FOR GFR 1.16 MG/DL (0.70-1.30); GLOMERULAR FILTRATION RATE > 60.0 (>42); GLUCOSE, FASTING 108 MG/DL (70-100); POTASSIUM SERUM 4.9 MEQ/L (3.5-5.1); SODIUM LEVEL 137 MEQ/L (136-145); TOTAL PROTEIN 7.1 GM/DL (6.4-8.2)
[2021-09-29 16:08] LABS: Lyme Disease IgG/IgM Antibodie <0.91 ISR (0.00-0.90); Lyme Disease IgM Ab Quantitati <0.80 index (0.00-0.79)
== END ==
LOC: M SFHCCLAY 14:52
PROVIDERS: ATTEND Physician Assistant
DX: R63.4 Abnormal weight loss (principal); R74.8 Abnormal levels of other serum enzymes

== ENCOUNTER → 2021-09-29 | Outpatient (CLI) | payer MEDICARE | LOC: M PLALAB 10:53 | PROVIDERS: ATTEND Physician Assistant | DX: R97.20 Elevated prostate specific antigen [PSA] (principal) ==

== ENCOUNTER → 2021-10-18 | Outpatient (REF) | payer MEDICARE | LOC: M SMT 15:53 | PROVIDERS: ATTEND Physician Assistant | DX: N41.0 Acute prostatitis (principal) ==

== ENCOUNTER → 2021-11-23 | Outpatient (REF) | payer MEDICARE | LOC: M SFHCDERM 17:23 | PROVIDERS: ATTEND Physician Assistant | DX: L82.1 Other seborrheic keratosis (principal) ==

== ENCOUNTER → 2021-11-28 | Outpatient (REF) | payer MEDICARE | LOC: M SFHCCLAY 11:15 | PROVIDERS: ATTEND Physician Assistant | DX: N41.0 Acute prostatitis (principal); R97.20 Elevated prostate specific antigen [PSA] ==

== ENCOUNTER → 2021-12-01 | Outpatient (CLI) | payer MEDICARE | LOC: M RAD 12:11 | PROVIDERS: ATTEND Family Medicine | DX: E04.1 Nontoxic single thyroid nodule (principal) ==

== ENCOUNTER → 2022-01-06 | Outpatient (CLI) | payer MEDICARE | LOC: M LABSMTC 09:47 | PROVIDERS: ATTEND Internal Medicine Gastroenterology | DX: Z01.812 Encounter for preprocedural laboratory examination (principal); Z20.822 Contact with and (suspected) exposure to COVID-19 ==

== ENCOUNTER 2022-01-11 07:52 | Day surgery (SDC) | payer MEDICARE ==
[~2022-01-11] VITALS: Ht 162.6 cm; Wt 67.6 kg
[~2022-01-11 07:52] MED LIST changes: +NS 1,000 ML IV ONE
[2022-01-11] MEDS ORDERED: fentaNYL 100 MCG/2 ML INJECTION As Ordered ONE (08:03)
[2022-01-11] MEDS ORDERED: LIDOCAINE 2% 100MG/5ML SDV (FOR ANES.) As Ordered ONE (08:03)
[2022-01-11] MEDS ORDERED: propofoL 200 MG/20 ML VIAL As Ordered ONE (08:03)
[2022-01-11 09:57] VITALS: BP 138/73
== END 2022-01-11 10:04 | disposition home or self-care (01) ==
LOC: M OPP 07:52
PROVIDERS: ATTEND Internal Medicine Gastroenterology
DX: K22.2 Esophageal obstruction (principal); K22.89 Other specified disease of esophagus; R13.10 Dysphagia, unspecified; Z88.0 Allergy status to penicillin; Z79.82 Long term (current) use of aspirin; Z79.899 Other long term (current) drug therapy
CPT/HCPCS: 43239; 88305; 88312; J3010

== ENCOUNTER → 2022-03-01 | Outpatient (REF) | payer MEDICARE ==
[~2022-03-01] MED LIST changes: -NS 1,000 ML IV ONE
== END ==
LOC: M SFHCCLAY 08:27
PROVIDERS: ATTEND Physician Assistant
DX: R97.20 Elevated prostate specific antigen [PSA] (principal)

== ENCOUNTER 2022-03-24 17:51 | Inpatient (IN) | payer MEDICARE ==
[~2022-03-24] VITALS: Ht 162.6 cm; Wt 66.7 kg
[~2022-03-24 17:51] MED LIST changes: -AMOX250C PO; -OMEP40CA5 PO
[2022-03-24] MEDS ORDERED: ACETAMINOPHEN 325 MG TAB PO ONE (19:30)
[2022-03-24 19:40] LABS: BASO # 0.1 10^3/uL (0.0-0.2); BASO % 0.3 % (0.0-1.0); EOS % 0.1 % (0.0-3.0); HEMATOCRIT 41.1 % (42.0-52.0); HEMOGLOBIN 14.1 g/dl (13.5-17.5); LYMPH # 1.4 10^3/uL (1.5-5.0); MEAN CORPUSCULAR HEMOGLOBIN 30.7 pg (27.0-33.0); MEAN CORPUSCULAR HGB CONC 34.3 g/dl (32.0-36.5); MEAN CORPUSCULAR VOLUME 89.3 fl (80.0-96.0); MONO % 5.1 % (2.0-8.0); NEUTROPHILS # 16.8 10^3/uL (1.5-8.5); PLATELET COUNT, AUTOMATED 212 10^3/uL (150-450); WHITE BLOOD COUNT 19.3 10^3/uL (4.0-10.0)
[2022-03-24] MEDS ORDERED: PIPERACILLIN/TAZOBACTAM SOD 4.5 GM in D5W MINI-BAG PLUS 50 ML IV ONE (20:00)
[2022-03-24] MEDS ORDERED: NS 1,000 ML IV ONE (20:00)
[2022-03-24] MEDS ORDERED: OMEP40CA5 PO (20:18)
[2022-03-24] MEDS ORDERED: HOME MED LIST COMPLETE! XX SCH (20:20)
[2022-03-24 21:46] LABS: RSV AMPLIFICATION NEGATIVE (NEGATIVE)
[2022-03-24] MEDS ORDERED: HYDROMORPHONE HCL 0.5 MG/ 0.5 ML SYRINGE (J1170 PER 1) IV PRN (22:05)
[2022-03-24] MEDS ORDERED: NS 1,000 ML IV SCH (22:05)
[2022-03-24] MEDS ORDERED: SODIUM CHLORIDE 0.9% 1000ML IV SCH (22:05)
[2022-03-24] MEDS ORDERED: ACETAMINOPHEN TAB 650MG DOSE (2X325MG) PO PRN (22:05)
[2022-03-24 22:45] VITALS: BP 107/58
[2022-03-25] MEDS: PIPERACILLIN/TAZOBACTAM SOD 3.375 GM in D5W MINI-BAG PLUS 50 ML IV SCH ×4 (02:11→21:10)
[2022-03-25 06:00] VITALS: BP 105/58
[2022-03-25] MEDS ORDERED: HEPARIN SOD (PORCINE) 5000UNITS/ML 1ML VIAL/SYRINGE SC SCH (06:00)
[2022-03-25 07:25] LABS: ALBUMIN 2.7 GM/DL (3.2-5.2); ALT/SGPT 33 U/L (12-78); BILIRUBIN,TOTAL 1.5 MG/DL (0.2-1.0); BLOOD UREA NITROGEN 9 MG/DL (7-18); CALCIUM LEVEL 7.9 MG/DL (8.8-10.2); CARBON DIOXIDE LEVEL 27 MEQ/L (21-32); CHLORIDE LEVEL 111 MEQ/L (98-107); CREATININE FOR GFR 1.04 MG/DL (0.70-1.30); GLOMERULAR FILTRATION RATE > 60.0 (>42); GLUCOSE, FASTING 101 MG/DL (70-100); SODIUM LEVEL 140 MEQ/L (136-145)
[2022-03-25 08:35] LABS: BASO % 0.3 % (0.0-1.0); EOS # 0.1 10^3/uL (0.0-0.5); EOS % 1.5 % (0.0-3.0); HEMATOCRIT 34.8 % (42.0-52.0); LYMPH # 1.2 10^3/uL (1.5-5.0); LYMPH % 13.8 % (24.0-44.0); MEAN CORPUSCULAR HEMOGLOBIN 30.6 pg (27.0-33.0); MEAN CORPUSCULAR HGB CONC 33.9 g/dl (32.0-36.5); MEAN CORPUSCULAR VOLUME 90.2 fl (80.0-96.0); MONO # 0.6 10^3/uL (0.0-0.8); MONO % 6.9 % (2.0-8.0); NEUTROPHILS # 6.7 10^3/uL (1.5-8.5); NEUTROPHILS % 77.3 % (36.0-66.0); PLATELET COUNT, AUTOMATED 165 10^3/uL (150-450); RED BLOOD COUNT 3.86 10^6/uL (4.30-6.10); WHITE BLOOD COUNT 8.6 10^3/uL (4.0-10.0)
[2022-03-25 08:39] LABS: HEMOGLOBIN 11.8 g/dl (13.5-17.5)
[2022-03-25] MEDS: PANTOPRAZOLE 40MG TAB (PROTONIX) PO SCH (08:48)
[2022-03-25 14:00] VITALS: BP 103/56
[2022-03-25] MEDS ORDERED: ENOXAPARIN 40MG/0.4ML SYRINGE (J1650 PER 10MG) SC SCH (21:00)
[2022-03-25 22:00] VITALS: BP 124/80
[2022-03-26] MEDS: PIPERACILLIN/TAZOBACTAM SOD 3.375 GM in D5W MINI-BAG PLUS 50 ML IV SCH ×2 (04:04→09:16)
[2022-03-26 06:00] VITALS: BP 116/62
[2022-03-26 06:17] LABS: BASO % 0.5 % (0.0-1.0); EOS # 0.3 10^3/uL (0.0-0.5); EOS % 3.4 % (0.0-3.0); HEMATOCRIT 34.8 % (42.0-52.0); LYMPH # 1.6 10^3/uL (1.5-5.0); LYMPH % 21.5 % (24.0-44.0); MEAN CORPUSCULAR HEMOGLOBIN 30.5 pg (27.0-33.0); MEAN CORPUSCULAR HGB CONC 34.5 g/dl (32.0-36.5); MEAN CORPUSCULAR VOLUME 88.5 fl (80.0-96.0); MONO # 0.7 10^3/uL (0.0-0.8); MONO % 8.5 % (2.0-8.0); NEUTROPHILS % 65.7 % (36.0-66.0); PLATELET COUNT, AUTOMATED 169 10^3/uL (150-450); RED BLOOD COUNT 3.93 10^6/uL (4.30-6.10); WHITE BLOOD COUNT 7.6 10^3/uL (4.0-10.0)
[2022-03-26 06:42] LABS: BLOOD UREA NITROGEN 9 MG/DL (7-18); CALCIUM LEVEL 8.4 MG/DL (8.8-10.2); CARBON DIOXIDE LEVEL 24 MEQ/L (21-32); CHLORIDE LEVEL 108 MEQ/L (98-107); GLOMERULAR FILTRATION RATE > 60.0 (>42); GLUCOSE, FASTING 93 MG/DL (70-100); POTASSIUM SERUM 4.2 MEQ/L (3.5-5.1); SODIUM LEVEL 140 MEQ/L (136-145)
[2022-03-26] MEDS ORDERED: ASPIRIN 81MG ENTERIC TABLET PO SCH (09:00)
[2022-03-26] MEDS: PANTOPRAZOLE 40MG TAB (PROTONIX) PO SCH (09:15)
[2022-03-26] MEDS ORDERED: AMOX250C PO (09:47)
[2022-03-26] MEDS ORDERED: PANTOPRAZOLE 40MG TAB (PROTONIX) PO SCH (21:00)
== END 2022-03-26 11:15 | disposition home or self-care (01) | DRG 863 ==
LOC: M ED 17:51 → M MS5PR 22:04 → ENRESERV 22:17
PROVIDERS: ADMIT Internal Medicine; ATTEND Internal Medicine Nephrology
DX: T81.44XA Sepsis following a procedure, initial encounter (principal); N39.0 Urinary tract infection, site not specified; K21.9 Gastro-esophageal reflux disease without esophagitis; E53.8 Deficiency of other specified B group vitamins; Z88.0 Allergy status to penicillin; Z79.82 Long term (current) use of aspirin; Z79.899 Other long term (current) drug therapy; Y83.8 Other surgical procedures as the cause of abnormal reaction of the patient, or of later complication, without mention of misadventure at the time of the procedure

== ENCOUNTER → 2022-03-24 | Outpatient (REF) | payer MEDICARE ==
[~2022-03-24] MED LIST changes: +AMOX250C PO; +OMEP40CA5 PO
== END ==
LOC: M SMT 13:04
PROVIDERS: ATTEND Urology
DX: R97.20 Elevated prostate specific antigen [PSA] (principal)

== ENCOUNTER → 2022-05-07 | Outpatient (REF) | payer MEDICARE ==
[~2022-05-07] MED LIST changes: +AMOX250C PO; +OMEP40CA5 PO
== END ==
LOC: M WUC 17:26
PROVIDERS: ATTEND Student in an Organized Health Care Education/Training Program
DX: R30.0 Dysuria (principal)

== ENCOUNTER → 2022-05-09 | Outpatient (CLI) | payer MEDICARE ==
[2022-05-09 17:12] LABS: HEMATOCRIT 40.6 % (42.0-52.0); HEMOGLOBIN 13.3 g/dl (13.5-17.5); MEAN CORPUSCULAR HEMOGLOBIN 29.7 pg (27.0-33.0); MEAN CORPUSCULAR HGB CONC 32.8 g/dl (32.0-36.5); MEAN CORPUSCULAR VOLUME 90.6 fl (80.0-96.0); PLATELET COUNT, AUTOMATED 247 10^3/uL (150-450); RED BLOOD COUNT 4.48 10^6/uL (4.30-6.10); WHITE BLOOD COUNT 9.8 10^3/uL (4.0-10.0)
[2022-05-09 17:53] LABS: ALBUMIN 3.4 GM/DL (3.2-5.2); BLOOD UREA NITROGEN 9 MG/DL (7-18); C REACTIVE PROTEIN QUANTITATIV 2.61 MG/DL (0.00-0.30); CALCIUM LEVEL 8.4 MG/DL (8.8-10.2); CARBON DIOXIDE LEVEL 31 MEQ/L (21-32); CHLORIDE LEVEL 105 MEQ/L (98-107); CREATININE FOR GFR 1.03 MG/DL (0.70-1.30); GLOMERULAR FILTRATION RATE > 60.0 (>42); GLUCOSE, FASTING 82 MG/DL (70-100); PHOSPHORUS LEVEL 3.2 MG/DL (2.5-4.9); POTASSIUM SERUM 4.2 MEQ/L (3.5-5.1); SODIUM LEVEL 138 MEQ/L (136-145)
== END ==
LOC: M PLALAB 14:45
PROVIDERS: ATTEND Nurse Practitioner Family
DX: N39.0 Urinary tract infection, site not specified (principal)

== ENCOUNTER → 2022-05-31 | Outpatient (REF) | payer MEDICARE | LOC: M SFHCCLAY 11:35 | PROVIDERS: ATTEND Nurse Practitioner Family | DX: N30.00 Acute cystitis without hematuria (principal) ==

== ENCOUNTER → 2022-06-16 | Outpatient (CLI) | payer MEDICARE ==
[~2022-06-16] MED LIST changes: +ISOVUE-370 76% 100ML VIAL As Ordered ONE
== END ==
LOC: M RAD 10:34
PROVIDERS: ATTEND Nurse Practitioner Family
DX: N30.00 Acute cystitis without hematuria (principal); N28.1 Cyst of kidney, acquired; K80.20 Calculus of gallbladder without cholecystitis without obstruction
CPT/HCPCS: 74178; Q9967

== ENCOUNTER → 2022-06-20 | Outpatient (REF) | payer MEDICARE ==
[~2022-06-20] MED LIST changes: -ISOVUE-370 76% 100ML VIAL As Ordered ONE
[2022-06-20 11:12] LABS: APPEARANCE, URINE MANUAL CLEAR (CLEAR); BILIRUBIN, URINE MANUAL NEGATIVE (NEGATIVE); BLOOD URINE MANUAL NEGATIVE (NEGATIVE); COLOR, URINE MANUAL YELLOW (YELLOW); GLUCOSE, URINE (UA) MANUAL NEGATIVE (NEGATIVE); KETONE, URINE MANUAL NEGATIVE (NEGATIVE); LEUKOCYTE ESTERASE, URINE MAN NEGATIVE (NEGATIVE); NITRITE, URINE MANUAL NEGATIVE (NEGATIVE); PH,URINE MAN 6.5 UNITS (5.0 - 7.0); PROTEIN, URINE MANUAL NEGATIVE (NEGATIVE)
[2022-06-20 11:13] LABS: UROBILINOGEN, URINE MANUAL 1 MG mg/dl (NORMAL)
== END ==
LOC: M SMT 10:07
PROVIDERS: ATTEND Urology
DX: Z87.440 Personal history of urinary (tract) infections (principal)
CPT/HCPCS: 81002; 87086; G0463

== ENCOUNTER → 2022-08-17 | Outpatient (REF) | payer MEDICARE ==
[2022-08-17 18:01] LABS: HEMATOCRIT 42.1 % (42.0-52.0); HEMOGLOBIN 13.6 g/dl (13.5-17.5); MEAN CORPUSCULAR HEMOGLOBIN 28.8 pg (27.0-33.0); MEAN CORPUSCULAR HGB CONC 32.3 g/dl (32.0-36.5); MEAN CORPUSCULAR VOLUME 89.2 fl (80.0-96.0); PLATELET COUNT, AUTOMATED 224 10^3/uL (150-450); RED BLOOD COUNT 4.72 10^6/uL (4.30-6.10); WHITE BLOOD COUNT 8.6 10^3/uL (4.0-10.0)
[2022-08-17 18:33] LABS: BLOOD UREA NITROGEN 11 MG/DL (9-23); CALCIUM LEVEL 9.2 MG/DL (8.3-10.6); CARBON DIOXIDE LEVEL 29 MMOL/L (20-31); CHLORIDE LEVEL 102 MMOL/L (98-107); GLOMERULAR FILTRATION RATE > 60.0 (>42); GLUCOSE, FASTING 98 MG/DL (74-106); POTASSIUM SERUM 4.4 MMOL/L (3.5-5.1); SODIUM LEVEL 138 MMOL/L (136-145)
== END ==
LOC: M SFHCCLAY 14:17
PROVIDERS: ATTEND Nurse Practitioner Family
DX: R10.84 Generalized abdominal pain (principal); N30.00 Acute cystitis without hematuria

== ENCOUNTER → 2022-10-16 | Outpatient (REF) | payer MEDICARE ==
[2022-10-18 15:08] LABS: PSA TOTAL 10.4 ng/mL (0.0-4.0)
== END ==
LOC: M SFHCCLAY 14:00
PROVIDERS: ATTEND Urology
DX: R97.20 Elevated prostate specific antigen [PSA] (principal)

== ENCOUNTER → 2022-10-23 | Outpatient (CLI) | payer MEDICARE | LOC: M PLAIMG 12:57 | PROVIDERS: ATTEND Internal Medicine Pulmonary Disease | DX: J84.9 Interstitial pulmonary disease, unspecified (principal) ==

== ENCOUNTER → 2022-10-27 | Outpatient (REF) | payer MEDICARE ==
[2022-10-27 18:15] LABS: C REACTIVE PROTEIN QUANTITATIV < 0.40 MG/DL (<1.0)
[2022-10-27 18:16] LABS: RHEUMATOID FACTOR QUANT 16.1 IU/ML (<14)
[2022-11-13 10:07] LABS: ANCA-ATYPICAL <1:20 titer (Neg:<1:20); ANGIOTENSIN 1 CONVERTING ENZYM 34 U/L (14-82); ANTI DS-DNA AB Negative (Negative); ANTI SCLERODERMA ANTIBODIES <0.2 AI (0.0-0.9); ANTINUCLEAR ANTIBODIES DIRECT Negative (Negative); ASPERGILLUS FUMIGATUS AB Negative (Negative); AUREOBASIDIUM PULLULANS Positive (Negative); BLASTOMYCES ANTIBODY LEVEL Negative (Neg:<1:1); CRYPTOCOCCUS ANTIGEN SER Negative (Negative); CYCLIC CITRULLINATED PEPTIDE 5 units (0-19); CYTOPLASMIC NEUTROP AB ANCA-C <1:20 titer (Neg:<1:20); MICROPOLYSPORA FAENI AB Negative (Negative); PERINUCLEAR AB ANCA-P <1:20 titer (Neg:<1:20); PIGEON SERUM AB Negative (Negative); RNP ANTIBODIES 0.3 AI (0.0-0.9); SJOGREN'S ANTI SS-A <0.2 AI (0.0-0.9); SJOGREN'S ANTI SS-B <0.2 AI (0.0-0.9); SMITH ANTIBODIES <0.2 AI (0.0-0.9); THERMOACTINOMYCES SACCHARI Negative (Negative); THERMOACTINOMYCES VULGARIS Negative (Negative)
[2022-11-14 15:08] LABS: ASPERGILLUS FLAVUS ABY Negative (Neg:<1:1); ASPERGILLUS FUMIGATUS ABY Negative (Neg:<1:1); ASPERGILLUS NIGER ABY Negative (Neg:<1:1)
== END ==
LOC: M LAB REF 16:48 → M LABDRAWC 16:48
PROVIDERS: ATTEND Internal Medicine Pulmonary Disease
DX: D86.2 Sarcoidosis of lung with sarcoidosis of lymph nodes (principal)

== ENCOUNTER → 2022-11-14 | Outpatient (REF) | payer MEDICARE ==
[2022-11-14 13:32] LABS: APPEARANCE, URINE CLEAR (CLEAR); BACTERIA, URINE AUTO NEGATIVE (NEGATIVE); BILIRUBIN, URINE AUTO NEGATIVE (NEGATIVE); BLOOD, URINE BLOOD NEGATIVE (NEGATIVE); COLOR, URINE YELLOW (YELLOW); GLUCOSE, URINE (UA) AUTO NEGATIVE (NEGATIVE); KETONE, URINE AUTO NEGATIVE (NEGATIVE); LEUKOCYTE ESTERASE, URINE AUTO 1+ (NEGATIVE); NITRITE, URINE AUTO NEGATIVE (NEGATIVE); PROTEIN, URINE AUTO NEGATIVE (NEGATIVE); RBC, URINE AUTO 0 /HPF (0-3); SPECIFIC GRAVITY URINE AUTO 1.011 (1.002-1.035); SQUAMOUS EPITHELIAL CELL UR AU 0 /HPF (0-6); WBC, URINE AUTO 1 /HPF (0-3)
== END ==
LOC: M SMT 13:00
PROVIDERS: ATTEND Urology
DX: N40.0 Benign prostatic hyperplasia without lower urinary tract symptoms (principal)

== ENCOUNTER → 2022-12-26 | Outpatient (CLI) | payer MEDICARE | LOC: M CLY 11:15 | PROVIDERS: ATTEND Family Medicine | DX: M19.012 Primary osteoarthritis, left shoulder (principal); M75.82 Other shoulder lesions, left shoulder ==

== ENCOUNTER → 2023-03-01 | Outpatient (REF) | payer MEDICARE ==
[2023-03-01 17:40] LABS: THYROID STIMULATING HORMONE 2.043 uIU/ML (0.55-4.78)
[2023-03-01 17:42] LABS: FREE T4 0.87 NG/DL (0.89-1.76)
[2023-03-01 17:44] LABS: ALBUMIN 3.8 G/DL (3.2-5.2); ALKALINE PHOSPHATASE 89 U/L (46-116); ALT/SGPT 20 U/L (7.0-40); AST/SGOT 16 U/L (<34); BLOOD UREA NITROGEN 16 MG/DL (9-23); CALCIUM LEVEL 8.1 MG/DL (8.3-10.6); CARBON DIOXIDE LEVEL 29 MMOL/L (20-31); CHLORIDE LEVEL 107 MMOL/L (98-107); CHOLESTEROL LEVEL 144 MG/DL (<200); CHOLESTEROL RISK RATIO 4.67 (<5); CREATININE FOR GFR 1.02 MG/DL (0.70-1.30); GLOMERULAR FILTRATION RATE > 60.0 (>42); GLUCOSE, FASTING 82 MG/DL (74-106); HDL CHOLESTEROL 30.8 MG/DL (>40); LDL CHOLESTEROL 89.2 MG/DL (<100); NON-HDL-C 113.2 MG/DL; POTASSIUM SERUM 4.4 MMOL/L (3.5-5.1); SODIUM LEVEL 137 MMOL/L (136-145); TOTAL PROTEIN 6.8 G/DL (5.7-8.2); TRIGLYCERIDES LEVEL 120 MG/DL (<150)
== END ==
LOC: M SFHCCLAY 11:23
PROVIDERS: ATTEND Nurse Practitioner Family
DX: K59.00 Constipation, unspecified (principal); N40.0 Benign prostatic hyperplasia without lower urinary tract symptoms; E04.1 Nontoxic single thyroid nodule; D86.9 Sarcoidosis, unspecified; Z79.899 Other long term (current) drug therapy

== ENCOUNTER 2023-07-18 12:38 | Day surgery (SDC) | payer MEDICARE ==
[~2023-07-18] VITALS: Ht 162.6 cm; Wt 68.9 kg
[~2023-07-18 12:38] MED LIST changes: +NS 1,000 ML IV ONE
[2023-07-18] MEDS ORDERED: LIDOCAINE 2% 100MG/5ML SDV (FOR ANES.) As Ordered ONE (14:39)
[2023-07-18] MEDS ORDERED: propofoL 200 MG/20 ML VIAL As Ordered ONE (14:40)
[2023-07-18] MEDS ORDERED: fentaNYL 100 MCG/2 ML INJECTION As Ordered ONE (15:04)
[2023-07-18 15:58] VITALS: TEMP 97.5
[2023-07-18 16:18] VITALS: BP 109/57; O2SAT 94
== END 2023-07-18 16:21 | disposition home or self-care (01) ==
LOC: M OPP 12:38
PROVIDERS: ATTEND Internal Medicine Gastroenterology
DX: Z12.11 Encounter for screening for malignant neoplasm of colon (principal); K22.89 Other specified disease of esophagus; K57.30 Diverticulosis of large intestine without perforation or abscess without bleeding; K64.0 First degree hemorrhoids; R13.10 Dysphagia, unspecified; Z86.010 Personal history of colon polyps; Z79.899 Other long term (current) drug therapy; Z79.82 Long term (current) use of aspirin; Z88.0 Allergy status to penicillin
CPT/HCPCS: 43239; 43249; 88305; G0105; J3010

== ENCOUNTER → 2023-08-14 | Outpatient (REF) | payer MEDICARE ==
[~2023-08-14] MED LIST changes: -NS 1,000 ML IV ONE
[2023-08-14 19:59] LABS: BASO # 0.1 10^3/uL (0.0-0.2); BASO % 0.6 % (0.0-1.0); EOS # 0.4 10^3/uL (0.0-0.5); EOS % 4.3 % (0.0-3.0); HEMATOCRIT 41.4 % (42.0-52.0); HEMOGLOBIN 13.6 g/dl (13.5-17.5); LYMPH % 23.3 % (24.0-44.0); MEAN CORPUSCULAR HEMOGLOBIN 29.7 pg (27.0-33.0); MEAN CORPUSCULAR HGB CONC 32.9 g/dl (32.0-36.5); MEAN CORPUSCULAR VOLUME 90.4 fl (80.0-96.0); MONO # 0.6 10^3/uL (0.0-0.8); MONO % 7.1 % (2.0-8.0); NEUTROPHILS # 5.5 10^3/uL (1.5-8.5); NEUTROPHILS % 64.1 % (36.0-66.0); PLATELET COUNT, AUTOMATED 192 10^3/uL (150-450); RED BLOOD COUNT 4.58 10^6/uL (4.30-6.10); WHITE BLOOD COUNT 8.6 10^3/uL (4.0-10.0)
[2023-08-14 20:20] LABS: LIPASE 36 U/L (12-53)
[2023-08-14 20:22] LABS: ALBUMIN 3.9 G/DL (3.2-5.2); ALKALINE PHOSPHATASE 85 U/L (46-116); ALT/SGPT 24 U/L (7.0-40); AMYLASE 50 U/L (30-118); AST/SGOT 17 U/L (<34); BILIRUBIN,TOTAL 1.1 MG/DL (0.3-1.2); BLOOD UREA NITROGEN 13 MG/DL (9-23); CARBON DIOXIDE LEVEL 30 MMOL/L (20-31); CHLORIDE LEVEL 104 MMOL/L (98-107); CREATININE FOR GFR 1.02 MG/DL (0.70-1.30); GLOMERULAR FILTRATION RATE > 60.0 (>42); GLUCOSE, FASTING 85 MG/DL (74-106); POTASSIUM SERUM 4.8 MMOL/L (3.5-5.1); SODIUM LEVEL 140 MMOL/L (136-145); TOTAL PROTEIN 7.1 G/DL (5.7-8.2)
== END ==
LOC: M SFHCCLAY 11:50
PROVIDERS: ATTEND Physician Assistant
DX: R10.30 Lower abdominal pain, unspecified (principal)

== ENCOUNTER → 2023-09-05 | Outpatient (REF) | payer MEDICARE | LOC: M SFHCCLAY 11:51 | PROVIDERS: ATTEND Physician Assistant | DX: B34.9 Viral infection, unspecified (principal) ==

== ENCOUNTER 2023-09-15 18:39 | Inpatient (IN) | payer MEDICARE ==
[~2023-09-15] VITALS: Ht 162.6 cm; Wt 69.4 kg
[2023-09-15 20:36] LABS: BASO % 0.3 % (0.0-1.0); EOS % 0.3 % (0.0-3.0); HEMOGLOBIN 12.4 g/dl (13.5-17.5); MEAN CORPUSCULAR HEMOGLOBIN 30.4 pg (27.0-33.0); MEAN CORPUSCULAR HGB CONC 34.4 g/dl (32.0-36.5); MEAN CORPUSCULAR VOLUME 88.2 fl (80.0-96.0); MONO % 11.3 % (2.0-8.0); NEUTROPHILS # 11.4 10^3/uL (1.5-8.5); NEUTROPHILS % 80.4 % (36.0-66.0); PLATELET COUNT, AUTOMATED 206 10^3/uL (150-450); RED BLOOD COUNT 4.08 10^6/uL (4.30-6.10); WHITE BLOOD COUNT 14.2 10^3/uL (4.0-10.0)
[2023-09-15 20:41] LABS: MONO # 1.6 10^3/uL (0.0-0.8)
[2023-09-15 20:43] LABS: CK-MB VALUE MASS < 1.0 NG/ML (<3.6); ETHYL ALCOHOL (ETHANOL) < 0.003 % (0.000-0.010)
[2023-09-15 20:44] LABS: BLOOD UREA NITROGEN 14 MG/DL (9-23); CARBON DIOXIDE LEVEL 27 MMOL/L (20-31); CHLORIDE LEVEL 107 MMOL/L (98-107); CPK CREATINE PHOSPHOKINASE 50 U/L (46-171); CREATININE FOR GFR 0.93 MG/DL (0.70-1.30); GLOMERULAR FILTRATION RATE > 60.0 (>42); GLUCOSE, FASTING 130 MG/DL (74-106); POTASSIUM SERUM 4.1 MMOL/L (3.5-5.1); SODIUM LEVEL 139 MMOL/L (136-145)
[2023-09-15 20:53] LABS: AMPHETAMINES LEVEL URINE NEGATIVE (NEGATIVE); BARBITURATES URINE NEGATIVE (NEGATIVE); BENZODIAZEPINES URINE NEGATIVE (NEGATIVE); CANNABINOIDS URINE NEGATIVE (NEGATIVE); COCAINE METABOLITE URINE NEGATIVE (NEGATIVE); METHADONE URINE NEGATIVE (NEGATIVE); OPIATES URINE NEGATIVE (NEGATIVE); PHENCYCLIDINE URINE NEGATIVE (NEGATIVE)
[2023-09-15] MEDS ORDERED: NS 1,000 ML IV ONE (21:25)
[2023-09-15 22:16] LABS: CK-MB VALUE MASS < 1.0 NG/ML (<3.6)
[2023-09-15 22:17] LABS: CPK CREATINE PHOSPHOKINASE 56 U/L (46-171); MB/CK RELATIVE INDEX 1.78 (< OR =4)
[2023-09-15] MEDS ORDERED: KETOROLAC 30 MG/ML 1ML VIAL IV ONE (23:05)
[2023-09-15] MEDS ORDERED: ISOVUE-370 76% 100ML VIAL As Ordered ONE (23:12)
[2023-09-16] MEDS ORDERED: cefTRIAXone SOD 2 GM in D5W MINI-BAG PLUS 50 ML IV ONE (01:45)
[2023-09-16] MEDS ORDERED: HOME MED LIST COMPLETE! XX SCH (02:25)
[2023-09-16] MEDS ORDERED: MOM 30ML SUSPENSION UDC PO PRN (03:15)
[2023-09-16] MEDS ORDERED: MAALOX 30 ML SUSP *UDC PO PRN (03:15)
[2023-09-16] MEDS ORDERED: NS 1,000 ML IV SCH (03:15)
[2023-09-16] MEDS ORDERED: PIPERACILLIN/TAZOBACTAM SOD 4.5 GM in D5W MINI-BAG PLUS 50 ML IV SCH (04:00)
[2023-09-16 04:06] LABS: PROCALCITONIN 0.08 ng/ml
[2023-09-16 04:22] VITALS: BP 132/73; TEMP 97.9; O2SAT 95
[2023-09-16] MEDS: AZITHROMYCIN 250MG TABLET PO SCH (04:48)
[2023-09-16 06:59] LABS: BASO % 0.2 % (0.0-1.0); EOS # 0.1 10^3/uL (0.0-0.5); EOS % 0.8 % (0.0-3.0); HEMATOCRIT 35.2 % (42.0-52.0); HEMOGLOBIN 11.7 g/dl (13.5-17.5); LYMPH # 1.3 10^3/uL (1.5-5.0); LYMPH % 10.4 % (24.0-44.0); MEAN CORPUSCULAR HEMOGLOBIN 29.8 pg (27.0-33.0); MEAN CORPUSCULAR HGB CONC 33.2 g/dl (32.0-36.5); MEAN CORPUSCULAR VOLUME 89.8 fl (80.0-96.0); MONO # 1.1 10^3/uL (0.0-0.8); MONO % 9.4 % (2.0-8.0); NEUTROPHILS # 9.5 10^3/uL (1.5-8.5); NEUTROPHILS % 78.8 % (36.0-66.0); PLATELET COUNT, AUTOMATED 182 10^3/uL (150-450); RED BLOOD COUNT 3.92 10^6/uL (4.30-6.10)
[2023-09-16 07:27] LABS: BLOOD UREA NITROGEN 13 MG/DL (9-23); CALCIUM LEVEL 7.5 MG/DL (8.3-10.6); CARBON DIOXIDE LEVEL 27 MMOL/L (20-31); CHLORIDE LEVEL 108 MMOL/L (98-107); CREATININE FOR GFR 0.97 MG/DL (0.70-1.30); GLOMERULAR FILTRATION RATE > 60.0 (>42); GLUCOSE, FASTING 100 MG/DL (74-106); MAGNESIUM LEVEL 1.9 MG/DL (1.8-2.4); POTASSIUM SERUM 4.4 MMOL/L (3.5-5.1); SODIUM LEVEL 141 MMOL/L (136-145)
[2023-09-16] MEDS: ALBUTEROL SULFATE 2.5MG/0.5ML INH NEB SOLN INH SCH ×3 (07:31→19:18)
[2023-09-16] MEDS: CYANOCOBALAMIN 500 MCG TAB PO SCH (07:58)
[2023-09-16] MEDS: ENOXAPARIN 40MG/0.4ML SYRINGE (J1650 PER 10MG) SC SCH (07:58)
[2023-09-16] MEDS: TAMSULOSIN 0.4 MG CAP PO SCH (07:58)
[2023-09-16] MEDS: OMEPRAZOLE 20MG CAP PO SCH (07:59)
[2023-09-16] MEDS: ASPIRIN 81MG ENTERIC TABLET PO SCH (07:59)
[2023-09-16] MEDS: DOCUSATE SODIUM 100MG CAPSULE PO SCH ×2 (07:59→19:33)
[2023-09-16] MEDS: ACETAMINOPHEN TAB 650MG DOSE (2X325MG) PO PRN (07:59)
[2023-09-16 08:07] VITALS: BP_SYST 128; BP_SYST 132; BP_SYST 138; BP_DIAS 54; BP_DIAS 58; BP_DIAS 62
[2023-09-16] MEDS: cefTRIAXone SOD 1 GM in D5W MINI-BAG PLUS 50 ML IV SCH (10:06)
[2023-09-16 14:00] VITALS: BP 125/57; TEMP 97.3; O2SAT 93
[2023-09-16 22:00] VITALS: BP 129/67; TEMP 98.1; O2SAT 97
[2023-09-17] MEDS: ALBUTEROL SULFATE 2.5MG/0.5ML INH NEB SOLN INH SCH ×4 (01:46→19:38)
[2023-09-17] MEDS: AZITHROMYCIN 250MG TABLET PO SCH (05:08)
[2023-09-17 06:00] VITALS: BP 99/55; TEMP 98.4; O2SAT 91
[2023-09-17 06:33] VITALS: BP 103/61
[2023-09-17 06:49] LABS: BASO % 0.3 % (0.0-1.0); EOS # 0.1 10^3/uL (0.0-0.5); EOS % 1.3 % (0.0-3.0); HEMATOCRIT 32.2 % (42.0-52.0); HEMOGLOBIN 10.9 g/dl (13.5-17.5); LYMPH # 1.5 10^3/uL (1.5-5.0); LYMPH % 13.2 % (24.0-44.0); MEAN CORPUSCULAR HEMOGLOBIN 30.3 pg (27.0-33.0); MEAN CORPUSCULAR HGB CONC 33.9 g/dl (32.0-36.5); MEAN CORPUSCULAR VOLUME 89.4 fl (80.0-96.0); MONO # 0.9 10^3/uL (0.0-0.8); MONO % 8.2 % (2.0-8.0); NEUTROPHILS # 8.5 10^3/uL (1.5-8.5); NEUTROPHILS % 76.5 % (36.0-66.0); PLATELET COUNT, AUTOMATED 198 10^3/uL (150-450); WHITE BLOOD COUNT 11.1 10^3/uL (4.0-10.0)
[2023-09-17 07:21] LABS: BLOOD UREA NITROGEN 12 MG/DL (9-23); CALCIUM LEVEL 7.7 MG/DL (8.3-10.6); CARBON DIOXIDE LEVEL 25 MMOL/L (20-31); CHLORIDE LEVEL 107 MMOL/L (98-107); CREATININE FOR GFR 1.01 MG/DL (0.70-1.30); GLOMERULAR FILTRATION RATE > 60.0 (>42); GLUCOSE, FASTING 103 MG/DL (74-106); MAGNESIUM LEVEL 1.9 MG/DL (1.8-2.4); POTASSIUM SERUM 4.1 MMOL/L (3.5-5.1); SODIUM LEVEL 139 MMOL/L (136-145)
[2023-09-17] MEDS: DOCUSATE SODIUM 100MG CAPSULE PO SCH ×2 (09:23→22:10)
[2023-09-17] MEDS: OMEPRAZOLE 20MG CAP PO SCH (09:23)
[2023-09-17] MEDS: CYANOCOBALAMIN 500 MCG TAB PO SCH (09:23)
[2023-09-17] MEDS: TAMSULOSIN 0.4 MG CAP PO SCH (09:23)
[2023-09-17] MEDS: ASPIRIN 81MG ENTERIC TABLET PO SCH (09:25)
[2023-09-17] MEDS: ENOXAPARIN 40MG/0.4ML SYRINGE (J1650 PER 10MG) SC SCH (09:25)
[2023-09-17] MEDS: CLOTRIMAZOLE 1% TOPICAL CREAM 30GM TOP SCH ×2 (09:26→22:12)
[2023-09-17] MEDS: cefTRIAXone SOD 1 GM in D5W MINI-BAG PLUS 50 ML IV SCH (09:26)
[2023-09-17] MEDS: NS 1,000 ML IV SCH ×2 (12:53→22:12)
[2023-09-17 14:00] VITALS: BP 99/55; TEMP 98.4; O2SAT 91
[2023-09-17 21:08] VITALS: BP 115/65; TEMP 97.9; O2SAT 93
[2023-09-18] MEDS: ALBUTEROL SULFATE 2.5MG/0.5ML INH NEB SOLN INH SCH ×4 (01:23→19:38)
[2023-09-18 05:50] VITALS: BP 114/63; TEMP 99.3; O2SAT 93
[2023-09-18] MEDS: AZITHROMYCIN 250MG TABLET PO SCH (05:50)
[2023-09-18 06:07] LABS: BASO % 0.4 % (0.0-1.0); EOS # 0.3 10^3/uL (0.0-0.5); EOS % 3.1 % (0.0-3.0); HEMATOCRIT 31.7 % (42.0-52.0); HEMOGLOBIN 10.6 g/dl (13.5-17.5); LYMPH # 1.3 10^3/uL (1.5-5.0); LYMPH % 15.6 % (24.0-44.0); MEAN CORPUSCULAR HEMOGLOBIN 30.5 pg (27.0-33.0); MEAN CORPUSCULAR HGB CONC 33.4 g/dl (32.0-36.5); MEAN CORPUSCULAR VOLUME 91.4 fl (80.0-96.0); MONO # 0.7 10^3/uL (0.0-0.8); MONO % 7.9 % (2.0-8.0); NEUTROPHILS # 6.1 10^3/uL (1.5-8.5); NEUTROPHILS % 72.5 % (36.0-66.0); PLATELET COUNT, AUTOMATED 215 10^3/uL (150-450); RED BLOOD COUNT 3.47 10^6/uL (4.30-6.10); WHITE BLOOD COUNT 8.4 10^3/uL (4.0-10.0)
[2023-09-18 06:35] LABS: BLOOD UREA NITROGEN 10 MG/DL (9-23); CALCIUM LEVEL 7.5 MG/DL (8.3-10.6); CARBON DIOXIDE LEVEL 24 MMOL/L (20-31); CHLORIDE LEVEL 111 MMOL/L (98-107); CREATININE FOR GFR 0.88 MG/DL (0.70-1.30); GLOMERULAR FILTRATION RATE > 60.0 (>42); GLUCOSE, FASTING 93 MG/DL (74-106); POTASSIUM SERUM 4.6 MMOL/L (3.5-5.1); SODIUM LEVEL 141 MMOL/L (136-145)
[2023-09-18] MEDS: NS 1,000 ML IV SCH ×2 (07:49→17:37)
[2023-09-18] MEDS: DOCUSATE SODIUM 100MG CAPSULE PO SCH (09:00)
[2023-09-18] MEDS: cefTRIAXone SOD 1 GM in D5W MINI-BAG PLUS 50 ML IV SCH (09:05)
[2023-09-18] MEDS: OMEPRAZOLE 20MG CAP PO SCH (09:08)
[2023-09-18] MEDS: TAMSULOSIN 0.4 MG CAP PO SCH (09:08)
[2023-09-18] MEDS: CYANOCOBALAMIN 500 MCG TAB PO SCH (09:08)
[2023-09-18] MEDS: ENOXAPARIN 40MG/0.4ML SYRINGE (J1650 PER 10MG) SC SCH (09:08)
[2023-09-18] MEDS: ASPIRIN 81MG ENTERIC TABLET PO SCH (09:08)
[2023-09-18] MEDS: CLOTRIMAZOLE 1% TOPICAL CREAM 30GM TOP SCH ×2 (09:08→20:34)
[2023-09-18 11:09] VITALS: BP 137/72; TEMP 97; O2SAT 95
[2023-09-18 14:00] VITALS: BP 120/63; TEMP 97.7; O2SAT 94
[2023-09-18 22:20] VITALS: BP 133/71; TEMP 98.1; O2SAT 95
[2023-09-19] MEDS: ALBUTEROL SULFATE 2.5MG/0.5ML INH NEB SOLN INH SCH ×4 (01:21→20:00)
[2023-09-19] MEDS: NS 1,000 ML IV SCH ×2 (03:36→17:10)
[2023-09-19 05:40] VITALS: BP 129/70; TEMP 97.9; O2SAT 95
[2023-09-19] MEDS: AZITHROMYCIN 250MG TABLET PO SCH (05:49)
[2023-09-19 05:59] LABS: BASO % 0.4 % (0.0-1.0); EOS # 0.4 10^3/uL (0.0-0.5); EOS % 4.5 % (0.0-3.0); HEMATOCRIT 32.4 % (42.0-52.0); HEMOGLOBIN 10.7 g/dl (13.5-17.5); LYMPH # 1.4 10^3/uL (1.5-5.0); LYMPH % 17.9 % (24.0-44.0); MEAN CORPUSCULAR HEMOGLOBIN 30.1 pg (27.0-33.0); MONO # 0.6 10^3/uL (0.0-0.8); MONO % 7.8 % (2.0-8.0); NEUTROPHILS # 5.6 10^3/uL (1.5-8.5); PLATELET COUNT, AUTOMATED 222 10^3/uL (150-450); RED BLOOD COUNT 3.56 10^6/uL (4.30-6.10); WHITE BLOOD COUNT 8.1 10^3/uL (4.0-10.0)
[2023-09-19 06:22] LABS: BLOOD UREA NITROGEN 10 MG/DL (9-23); CALCIUM LEVEL 7.6 MG/DL (8.3-10.6); CARBON DIOXIDE LEVEL 24 MMOL/L (20-31); CHLORIDE LEVEL 112 MMOL/L (98-107); GLOMERULAR FILTRATION RATE > 60.0 (>42); GLUCOSE, FASTING 84 MG/DL (74-106); MAGNESIUM LEVEL 2.1 MG/DL (1.8-2.4); POTASSIUM SERUM 4.6 MMOL/L (3.5-5.1); SODIUM LEVEL 141 MMOL/L (136-145)
[2023-09-19] MEDS: ENOXAPARIN 40MG/0.4ML SYRINGE (J1650 PER 10MG) SC SCH (07:50)
[2023-09-19] MEDS: CYANOCOBALAMIN 500 MCG TAB PO SCH (07:51)
[2023-09-19] MEDS: TAMSULOSIN 0.4 MG CAP PO SCH (07:51)
[2023-09-19] MEDS: OMEPRAZOLE 20MG CAP PO SCH (07:51)
[2023-09-19] MEDS: CLOTRIMAZOLE 1% TOPICAL CREAM 30GM TOP SCH ×2 (07:52→20:29)
[2023-09-19] MEDS: ASPIRIN 81MG ENTERIC TABLET PO SCH (07:52)
[2023-09-19] MEDS: CEFDINIR 300 MG CAP (OMNICEF) PO SCH ×2 (07:55→20:29)
[2023-09-19 14:00] VITALS: BP 132/70; TEMP 97.5; O2SAT 96
[2023-09-19 20:00] VITALS: BP 144/67; TEMP 98.6; O2SAT 93
[2023-09-20] MEDS: ALBUTEROL SULFATE 2.5MG/0.5ML INH NEB SOLN INH SCH ×2 (01:15→08:00)
[2023-09-20] MEDS: NS 1,000 ML IV SCH (02:41)
[2023-09-20] MEDS: AZITHROMYCIN 250MG TABLET PO SCH (05:36)
[2023-09-20 05:59] LABS: BASO # 0.1 10^3/uL (0.0-0.2); BASO % 0.5 % (0.0-1.0); EOS # 0.4 10^3/uL (0.0-0.5); EOS % 4.3 % (0.0-3.0); HEMATOCRIT 33.6 % (42.0-52.0); HEMOGLOBIN 11.2 g/dl (13.5-17.5); LYMPH # 1.4 10^3/uL (1.5-5.0); MEAN CORPUSCULAR HEMOGLOBIN 29.9 pg (27.0-33.0); MEAN CORPUSCULAR HGB CONC 33.3 g/dl (32.0-36.5); MEAN CORPUSCULAR VOLUME 89.8 fl (80.0-96.0); MONO # 0.7 10^3/uL (0.0-0.8); NEUTROPHILS # 6.8 10^3/uL (1.5-8.5); NEUTROPHILS % 72.7 % (36.0-66.0); PLATELET COUNT, AUTOMATED 271 10^3/uL (150-450); RED BLOOD COUNT 3.74 10^6/uL (4.30-6.10); WHITE BLOOD COUNT 9.4 10^3/uL (4.0-10.0)
[2023-09-20 06:00] VITALS: BP 104/55; TEMP 98.1; O2SAT 92
[2023-09-20 06:23] LABS: BLOOD UREA NITROGEN 14 MG/DL (9-23); CALCIUM LEVEL 8.1 MG/DL (8.3-10.6); CARBON DIOXIDE LEVEL 25 MMOL/L (20-31); CHLORIDE LEVEL 108 MMOL/L (98-107); GLOMERULAR FILTRATION RATE > 60.0 (>42); GLUCOSE, FASTING 85 MG/DL (74-106); MAGNESIUM LEVEL 2.2 MG/DL (1.8-2.4); POTASSIUM SERUM 4.2 MMOL/L (3.5-5.1); SODIUM LEVEL 138 MMOL/L (136-145)
[2023-09-20] MEDS: CEFDINIR 300 MG CAP (OMNICEF) PO SCH (09:00)
[2023-09-20] MEDS: TAMSULOSIN 0.4 MG CAP PO SCH (09:00)
[2023-09-20] MEDS: ENOXAPARIN 40MG/0.4ML SYRINGE (J1650 PER 10MG) SC SCH ×2 (09:00→09:10)
[2023-09-20] MEDS: CYANOCOBALAMIN 500 MCG TAB PO SCH (09:00)
[2023-09-20] MEDS: ACETAMINOPHEN TAB 650MG DOSE (2X325MG) PO PRN (09:01)
[2023-09-20] MEDS: ASPIRIN 81MG ENTERIC TABLET PO SCH (09:01)
[2023-09-20] MEDS: OMEPRAZOLE 20MG CAP PO SCH (09:01)
[2023-09-20] MEDS: CLOTRIMAZOLE 1% TOPICAL CREAM 30GM TOP SCH (09:02)
[2023-09-20] MEDS ORDERED: CEFD1CAP9 PO (11:14)
== END 2023-09-20 14:02 | disposition home or self-care (01) | DRG 312 ==
LOC: M ED 18:39 → M ED INP 09-16 03:14 → ENRESERV 09-16 03:46 → M MSPAV 09-16 04:22
PROVIDERS: ADMIT Internal Medicine; ATTEND Internal Medicine
DX: R55 Syncope and collapse (principal); J15.9 Unspecified bacterial pneumonia; K21.9 Gastro-esophageal reflux disease without esophagitis; J84.10 Pulmonary fibrosis, unspecified; N40.0 Benign prostatic hyperplasia without lower urinary tract symptoms; N50.89 Other specified disorders of the male genital organs; Z88.0 Allergy status to penicillin; Z79.899 Other long term (current) drug therapy

== ENCOUNTER → 2023-10-11 | Outpatient (CLI) | payer MEDICARE ==
[~2023-10-11] MED LIST changes: +CEFD1CAP9 PO
== END ==
LOC: M CLY 15:35
PROVIDERS: ATTEND Nurse Practitioner Family
DX: J84.9 Interstitial pulmonary disease, unspecified (principal)

== ENCOUNTER → 2023-10-12 | Outpatient (REF) | payer MEDICARE ==
[2023-10-12 18:25] LABS: BASO % 0.5 % (0.0-1.0); EOS # 0.4 10^3/uL (0.0-0.5); EOS % 4.7 % (0.0-3.0); HEMATOCRIT 38.6 % (42.0-52.0); HEMOGLOBIN 12.7 g/dl (13.5-17.5); LYMPH # 1.6 10^3/uL (1.5-5.0); LYMPH % 19.7 % (24.0-44.0); MEAN CORPUSCULAR HEMOGLOBIN 29.9 pg (27.0-33.0); MEAN CORPUSCULAR HGB CONC 32.9 g/dl (32.0-36.5); MEAN CORPUSCULAR VOLUME 90.8 fl (80.0-96.0); MONO # 0.7 10^3/uL (0.0-0.8); MONO % 8.5 % (2.0-8.0); NEUTROPHILS # 5.4 10^3/uL (1.5-8.5); NEUTROPHILS % 66.1 % (36.0-66.0); PLATELET COUNT, AUTOMATED 207 10^3/uL (150-450); RED BLOOD COUNT 4.25 10^6/uL (4.30-6.10); WHITE BLOOD COUNT 8.1 10^3/uL (4.0-10.0)
[2023-10-12 18:33] LABS: FREE T4 0.94 NG/DL (0.89-1.76)
[2023-10-12 18:35] LABS: ALBUMIN 3.2 G/DL (3.2-5.2); ALKALINE PHOSPHATASE 114 U/L (46-116); ALT/SGPT 29 U/L (7.0-40); AST/SGOT 19 U/L (<34); BILIRUBIN,TOTAL 0.6 MG/DL (0.3-1.2); BLOOD UREA NITROGEN 13 MG/DL (9-23); CALCIUM LEVEL 8.3 MG/DL (8.3-10.6); CARBON DIOXIDE LEVEL 30 MMOL/L (20-31); CHLORIDE LEVEL 107 MMOL/L (98-107); CREATININE FOR GFR 1.11 MG/DL (0.70-1.30); GLOMERULAR FILTRATION RATE > 60.0 (>42); GLUCOSE, FASTING 96 MG/DL (74-106); POTASSIUM SERUM 4.5 MMOL/L (3.5-5.1); SODIUM LEVEL 142 MMOL/L (136-145); TOTAL PROTEIN 6.5 G/DL (5.7-8.2)
== END ==
LOC: M SFHCCLAY 10:21
PROVIDERS: ATTEND Nurse Practitioner Family
DX: J18.9 Pneumonia, unspecified organism (principal); Z77.29 Contact with and (suspected) exposure to other hazardous substances; I44.1 Atrioventricular block, second degree; Z79.899 Other long term (current) drug therapy

== ENCOUNTER 2023-10-19 20:39 | Emergency (ER) | payer MEDICARE ==
[~2023-10-19] VITALS: Ht 162.6 cm; Wt 69.8 kg
[2023-10-19 20:40] VITALS: TEMP 97.6
[2023-10-19] MEDS ORDERED: TAMS1CAP17 (20:48)
[2023-10-19 22:03] LABS: BASO # 0.1 10^3/uL (0.0-0.2); BASO % 0.6 % (0.0-1.0); EOS # 0.4 10^3/uL (0.0-0.5); EOS % 4.4 % (0.0-3.0); HEMATOCRIT 37.8 % (42.0-52.0); HEMOGLOBIN 12.7 g/dl (13.5-17.5); LYMPH # 2.2 10^3/uL (1.5-5.0); LYMPH % 22.7 % (24.0-44.0); MEAN CORPUSCULAR HEMOGLOBIN 29.7 pg (27.0-33.0); MEAN CORPUSCULAR HGB CONC 33.6 g/dl (32.0-36.5); MEAN CORPUSCULAR VOLUME 88.3 fl (80.0-96.0); MONO # 0.6 10^3/uL (0.0-0.8); MONO % 6.7 % (2.0-8.0); NEUTROPHILS # 6.2 10^3/uL (1.5-8.5); NEUTROPHILS % 65.4 % (36.0-66.0); PLATELET COUNT, AUTOMATED 213 10^3/uL (150-450); RED BLOOD COUNT 4.28 10^6/uL (4.30-6.10); WHITE BLOOD COUNT 9.5 10^3/uL (4.0-10.0)
[2023-10-19 22:16] LABS: INR 1.06; PROTHROMBIN TIME 13.5 SECONDS (12.5-14.5)
[2023-10-19 22:17] LABS: PARTIAL THROMBOPLASTIN TIME 28.8 SECONDS (24.8-34.2)
[2023-10-19 22:34] LABS: BLOOD UREA NITROGEN 13 MG/DL (9-23); CALCIUM LEVEL 8.5 MG/DL (8.3-10.6); CARBON DIOXIDE LEVEL 28 MMOL/L (20-31); CHLORIDE LEVEL 104 MMOL/L (98-107); CK-MB VALUE MASS < 1.0 NG/ML (<3.6); CPK CREATINE PHOSPHOKINASE 71 U/L (46-171); GLOMERULAR FILTRATION RATE > 60.0 (>42); GLUCOSE, FASTING 100 MG/DL (74-106); POTASSIUM SERUM 4.2 MMOL/L (3.5-5.1); SODIUM LEVEL 138 MMOL/L (136-145)
[2023-10-19 23:16] LABS: CK-MB VALUE MASS < 1.0 NG/ML (<3.6)
[2023-10-19 23:18] LABS: CPK CREATINE PHOSPHOKINASE 61 U/L (46-171); MB/CK RELATIVE INDEX 1.63 (< OR =4)
[2023-10-20 01:30] VITALS: BP 150/72; O2SAT 97
== END 2023-10-20 02:52 | disposition home or self-care (01) ==
LOC: M ED 20:39
DX: R53.81 Other malaise (principal); K21.9 Gastro-esophageal reflux disease without esophagitis; Z88.0 Allergy status to penicillin; Z79.82 Long term (current) use of aspirin; Z79.83 Long term (current) use of bisphosphonates; Z79.899 Other long term (current) drug therapy

== ENCOUNTER → 2023-10-26 | Outpatient (REF) | payer MEDICARE ==
[~2023-10-26] MED LIST changes: +TAMS1CAP17
[2023-10-26 14:32] LABS: APPEARANCE, URINE CLOUDY (CLEAR); BACTERIA, URINE AUTO 1+ (NEGATIVE); BILIRUBIN, URINE AUTO NEGATIVE (NEGATIVE); BLOOD, URINE BLOOD NEGATIVE (NEGATIVE); COLOR, URINE YELLOW (YELLOW); GLUCOSE, URINE (UA) AUTO NEGATIVE (NEGATIVE); KETONE, URINE AUTO NEGATIVE (NEGATIVE); LEUKOCYTE ESTERASE, URINE AUTO 3+ (NEGATIVE); MUCUS, URINE SMALL (NEGATIVE); NITRITE, URINE AUTO NEGATIVE (NEGATIVE); PROTEIN, URINE AUTO NEGATIVE (NEGATIVE); RBC, URINE AUTO 6 /HPF (0-3); SPECIFIC GRAVITY URINE AUTO 1.012 (1.002-1.035); SQUAMOUS EPITHELIAL CELL UR AU 0 /HPF (0-6); UROBILINOGEN, URINE AUTO 0.2 mg/dL (0.0-2.0); WBC, URINE AUTO TNTC /HPF (0-3)
== END ==
LOC: M SMT 13:07
PROVIDERS: ATTEND Urology
DX: R30.0 Dysuria (principal)

== ENCOUNTER → 2023-11-30 | Outpatient (REF) | payer MEDICARE ==
[2023-11-30 18:11] LABS: BASO % 0.5 % (0.0-1.0); EOS # 0.3 10^3/uL (0.0-0.5); EOS % 4.4 % (0.0-3.0); HEMATOCRIT 37.4 % (42.0-52.0); HEMOGLOBIN 12.2 g/dl (13.5-17.5); LYMPH # 1.7 10^3/uL (1.5-5.0); MEAN CORPUSCULAR HEMOGLOBIN 28.8 pg (27.0-33.0); MEAN CORPUSCULAR HGB CONC 32.6 g/dl (32.0-36.5); MEAN CORPUSCULAR VOLUME 88.4 fl (80.0-96.0); MONO # 0.7 10^3/uL (0.0-0.8); MONO % 8.7 % (2.0-8.0); NEUTROPHILS # 4.8 10^3/uL (1.5-8.5); NEUTROPHILS % 64.1 % (36.0-66.0); PLATELET COUNT, AUTOMATED 201 10^3/uL (150-450); RED BLOOD COUNT 4.23 10^6/uL (4.30-6.10); WHITE BLOOD COUNT 7.5 10^3/uL (4.0-10.0)
[2023-11-30 18:23] LABS: HEMOGLOBIN A1c 5.6 % (4.0-6.0)
[2023-11-30 18:34] LABS: ALBUMIN 3.5 G/DL (3.2-5.2); ALKALINE PHOSPHATASE 86 U/L (46-116); ALT/SGPT 18 U/L (7.0-40); AST/SGOT 15 U/L (<34); BILIRUBIN,TOTAL 0.8 MG/DL (0.3-1.2); BLOOD UREA NITROGEN 15 MG/DL (9-23); CALCIUM LEVEL 8.4 MG/DL (8.3-10.6); CARBON DIOXIDE LEVEL 28 MMOL/L (20-31); CHLORIDE LEVEL 108 MMOL/L (98-107); CHOLESTEROL LEVEL 129 MG/DL (<200); CHOLESTEROL RISK RATIO 4.92 (<5); CREATININE FOR GFR 1.01 MG/DL (0.70-1.30); GLOMERULAR FILTRATION RATE > 60.0 (>42); GLUCOSE, FASTING 92 MG/DL (74-106); HDL CHOLESTEROL 26.2 MG/DL (>40); NON-HDL-C 102.8 MG/DL; POTASSIUM SERUM 4.7 MMOL/L (3.5-5.1); SODIUM LEVEL 139 MMOL/L (136-145); TOTAL PROTEIN 6.7 G/DL (5.7-8.2); TRIGLYCERIDES LEVEL 94 MG/DL (<150)
[2023-11-30 18:36] LABS: THYROID STIMULATING HORMONE 1.483 uIU/ML (0.55-4.78)
[2023-12-02 08:10] LABS: LDL DIRECT 89 mg/dL (0-99)
== END ==
LOC: M LABDRAWC 17:20
PROVIDERS: ATTEND Internal Medicine Cardiovascular Disease
DX: R55 Syncope and collapse (principal); I10 Essential (primary) hypertension; E78.2 Mixed hyperlipidemia; I50.9 Heart failure, unspecified; Z79.899 Other long term (current) drug therapy

== ENCOUNTER → 2024-01-15 | Outpatient (REF) | payer MEDICARE | LOC: M SFHCCLAY 14:59 | PROVIDERS: ATTEND Urology | DX: Z87.898 Personal history of other specified conditions (principal) ==

== ENCOUNTER → 2024-01-24 | Outpatient (REF) | payer MEDICARE ==
[2024-01-24 15:03] LABS: APPEARANCE, URINE CLEAR (CLEAR); BACTERIA, URINE AUTO NEGATIVE (NEGATIVE); BILIRUBIN, URINE AUTO NEGATIVE (NEGATIVE); BLOOD, URINE BLOOD NEGATIVE (NEGATIVE); COLOR, URINE YELLOW (YELLOW); GLUCOSE, URINE (UA) AUTO NEGATIVE (NEGATIVE); KETONE, URINE AUTO NEGATIVE (NEGATIVE); LEUKOCYTE ESTERASE, URINE AUTO NEGATIVE (NEGATIVE); NITRITE, URINE AUTO NEGATIVE (NEGATIVE); PROTEIN, URINE AUTO NEGATIVE (NEGATIVE); RBC, URINE AUTO 1 /HPF (0-3); SPECIFIC GRAVITY URINE AUTO 1.019 (1.002-1.035); SQUAMOUS EPITHELIAL CELL UR AU 0 /HPF (0-6); UROBILINOGEN, URINE AUTO 0.2 mg/dL (0.0-2.0); WBC, URINE AUTO 2 /HPF (0-3)
== END ==
LOC: M LABSMT 08:39
PROVIDERS: ATTEND Urology
DX: N40.0 Benign prostatic hyperplasia without lower urinary tract symptoms (principal)

== ENCOUNTER → 2024-03-24 | Outpatient (CLI) | payer MEDICARE | LOC: M PLAIMG 09:13 | PROVIDERS: ATTEND Internal Medicine Pulmonary Disease | DX: R91.8 Other nonspecific abnormal finding of lung field (principal); J44.9 Chronic obstructive pulmonary disease, unspecified ==

== ENCOUNTER → 2024-06-18 | Outpatient (CLI) | payer MEDICARE | LOC: M CLY 14:34 | PROVIDERS: ATTEND Nurse Practitioner Family | DX: J15.69 Pneumonia due to other Gram-negative bacteria (principal) ==

== ENCOUNTER → 2024-06-18 | Outpatient (REF) | payer MEDICARE ==
[2024-06-18 18:28] LABS: BASO # 0.1 10^3/uL (0.0-0.2); BASO % 0.8 % (0.0-1.0); EOS # 0.2 10^3/uL (0.0-0.5); EOS % 2.6 % (0.0-3.0); HEMATOCRIT 39.9 % (42.0-52.0); HEMOGLOBIN 12.6 g/dl (13.5-17.5); LYMPH # 1.8 10^3/uL (1.5-5.0); LYMPH % 20.3 % (24.0-44.0); MEAN CORPUSCULAR HEMOGLOBIN 28.3 pg (27.0-33.0); MEAN CORPUSCULAR HGB CONC 31.6 g/dl (32.0-36.5); MEAN CORPUSCULAR VOLUME 89.7 fl (80.0-96.0); MONO # 0.6 10^3/uL (0.0-0.8); MONO % 7.2 % (2.0-8.0); NEUTROPHILS # 5.8 10^3/uL (1.5-8.5); NEUTROPHILS % 66.8 % (36.0-66.0); PLATELET COUNT, AUTOMATED 257 10^3/uL (150-450); RED BLOOD COUNT 4.45 10^6/uL (4.30-6.10); WHITE BLOOD COUNT 8.7 10^3/uL (4.0-10.0)
[2024-06-18 18:50] LABS: ALBUMIN 3.6 G/DL (3.2-5.2); ALKALINE PHOSPHATASE 107 U/L (46-116); ALT/SGPT 17 U/L (7.0-40); AST/SGOT 13 U/L (<34); BILIRUBIN,TOTAL 0.7 MG/DL (0.3-1.2); BLOOD UREA NITROGEN 13 MG/DL (9-23); CALCIUM LEVEL 9.4 MG/DL (8.3-10.6); CARBON DIOXIDE LEVEL 29 MMOL/L (20-31); CHLORIDE LEVEL 106 MMOL/L (98-107); CREATININE FOR GFR 1.03 MG/DL (0.70-1.30); GLOMERULAR FILTRATION RATE > 60.0 (>42); GLUCOSE, FASTING 89 MG/DL (74-106); POTASSIUM SERUM 4.6 MMOL/L (3.5-5.1); SODIUM LEVEL 137 MMOL/L (136-145); TOTAL PROTEIN 7.2 G/DL (5.7-8.2)
== END ==
LOC: M SFHCCLAY 14:21
PROVIDERS: ATTEND Nurse Practitioner Family
DX: J15.69 Pneumonia due to other Gram-negative bacteria (principal); Z79.899 Other long term (current) drug therapy

== ENCOUNTER → 2024-07-09 | Outpatient (REF) | payer MEDICARE | LOC: M SFHCCLAY 09:09 | PROVIDERS: ATTEND Physician Assistant | DX: R30.0 Dysuria (principal) ==

== ENCOUNTER → 2024-10-02 | Outpatient (REF) | payer MEDICARE ==
[2024-10-02 18:26] LABS: ALBUMIN 3.7 G/DL (3.2-5.2); ALKALINE PHOSPHATASE 76 U/L (40-129); ALT/SGPT 20 U/L (7.0-40); AST/SGOT 16 U/L (<34); BILIRUBIN,TOTAL 0.8 MG/DL (0.3-1.2); BLOOD UREA NITROGEN 14 MG/DL (9-23); CALCIUM LEVEL 8.6 MG/DL (8.3-10.6); CARBON DIOXIDE LEVEL 28 MMOL/L (20-31); CHLORIDE LEVEL 104 MMOL/L (98-107); CHOLESTEROL LEVEL 147 MG/DL (<200); CHOLESTEROL RISK RATIO 4.36 (<5); CREATININE FOR GFR 1.16 MG/DL (0.70-1.30); GLOMERULAR FILTRATION RATE > 60.0 (>42); GLUCOSE, FASTING 97 MG/DL (74-106); HDL CHOLESTEROL 33.7 MG/DL (>40); LDL CHOLESTEROL 88.5 MG/DL (<100); NON-HDL-C 113.3 MG/DL; POTASSIUM SERUM 4.6 MMOL/L (3.5-5.1); SODIUM LEVEL 141 MMOL/L (136-145); TOTAL PROTEIN 7.3 G/DL (5.7-8.2); TRIGLYCERIDES LEVEL 124 MG/DL (<150)
[2024-10-02 18:51] LABS: HEMOGLOBIN A1c 5.6 % (4.0-6.0)
[2024-10-06 15:08] LABS: PSA FREE 1.9 ng/mL; PSA TOTAL 8.8 ng/mL (< OR = 4.0)
== END ==
LOC: M SFHCCLAY 13:26
PROVIDERS: ATTEND Nurse Practitioner Family
DX: N40.0 Benign prostatic hyperplasia without lower urinary tract symptoms (principal); E78.6 Lipoprotein deficiency; Z13.1 Encounter for screening for diabetes mellitus; Z12.5 Encounter for screening for malignant neoplasm of prostate

== ENCOUNTER → 2024-10-28 | Outpatient (REF) | payer MEDICARE ==
[2024-10-28 13:45] LABS: APPEARANCE, URINE CLEAR (CLEAR); BACTERIA, URINE AUTO NEGATIVE (NEGATIVE); BILIRUBIN, URINE AUTO NEGATIVE (NEGATIVE); BLOOD, URINE BLOOD NEGATIVE (NEGATIVE); COLOR, URINE YELLOW (YELLOW); GLUCOSE, URINE (UA) AUTO NEGATIVE (NEGATIVE); KETONE, URINE AUTO NEGATIVE (NEGATIVE); LEUKOCYTE ESTERASE, URINE AUTO NEGATIVE (NEGATIVE); NITRITE, URINE AUTO NEGATIVE (NEGATIVE); PROTEIN, URINE AUTO NEGATIVE (NEGATIVE); RBC, URINE AUTO 0 /HPF (0-3); SPECIFIC GRAVITY URINE AUTO 1.017 (1.002-1.035); SQUAMOUS EPITHELIAL CELL UR AU 0 /HPF (0-6); UROBILINOGEN, URINE AUTO 0.2 mg/dL (0.0-2.0); WBC, URINE AUTO 0 /HPF (0-3)
== END ==
LOC: M SMT 12:44
PROVIDERS: ATTEND Urology
DX: N40.0 Benign prostatic hyperplasia without lower urinary tract symptoms (principal)

== ENCOUNTER → 2024-12-01 | Outpatient (CLI) | payer MEDICARE ==
[~2024-12-01] MED LIST changes: +E-Z-GAS II EFFERVESCENT PACKET (SODIUM BICARB./CITRIC ACID/SIMETHICONE) As Ordered ONE; +E-Z-HD 98% w/w 340GM SUSP BTL As Ordered ONE; +E-Z-PAQUE 96% w/w SUSP 176GM BTL As Ordered ONE
== END ==
LOC: M RAD 08:30
PROVIDERS: ATTEND Otolaryngology
DX: R13.10 Dysphagia, unspecified (principal)

== ENCOUNTER → 2025-01-19 | Day surgery (SDC) | payer MEDICARE ==
[~2025-01-19] VITALS: Ht 162.6 cm; Wt 72.2 kg
[~2025-01-19] MED LIST changes: -E-Z-GAS II EFFERVESCENT PACKET (SODIUM BICARB./CITRIC ACID/SIMETHICONE) As Ordered ONE; -E-Z-HD 98% w/w 340GM SUSP BTL As Ordered ONE; -E-Z-PAQUE 96% w/w SUSP 176GM BTL As Ordered ONE; +FLUTISP; -TAMS1CAP17; +TAMS1CAP17 PO
[2025-01-19 12:50] VITALS: TEMP 98.1
[2025-01-19 13:07] VITALS: BP 111/72; O2SAT 97
== END | disposition home or self-care (01) ==
LOC: M OPP 10:38
PROVIDERS: ATTEND Internal Medicine Gastroenterology
DX: K22.2 Esophageal obstruction (principal); K22.89 Other specified disease of esophagus; R13.10 Dysphagia, unspecified; Z88.0 Allergy status to penicillin; Z79.51 Long term (current) use of inhaled steroids; Z79.899 Other long term (current) drug therapy

== ENCOUNTER → 2025-06-15 | Outpatient (CLI) | payer MEDICARE | LOC: M CLY 09:39 | PROVIDERS: ATTEND Physician Assistant | DX: S49.92XA Unspecified injury of left shoulder and upper arm, initial encounter (principal); X58.XXXA Exposure to other specified factors, initial encounter; Y92.9 Unspecified place or not applicable; Y93.9 Activity, unspecified; Y99.9 Unspecified external cause status ==

== ENCOUNTER → 2025-07-28 | Outpatient (REF) | payer MEDICARE ==
[2025-07-28 18:53] LABS: ALT/SGPT 31.0 U/L (7.0-40); AST/SGOT 35.0 U/L (<34); CALCIUM LEVEL 8.1 MG/DL (8.3-10.6); CARBON DIOXIDE LEVEL 26.0 MMOL/L (20-31); CHLORIDE LEVEL 104.0 MMOL/L (98-107); CREATININE FOR GFR 1.03 MG/DL (0.70-1.30); FREE T4 1.1 NG/DL (0.89-1.76); GLOMERULAR FILTRATION RATE 75.8 (>42); MAGNESIUM LEVEL 2.0 MG/DL (1.8-2.4); POTASSIUM SERUM 4.1 MMOL/L (3.5-5.1); SODIUM LEVEL 138.0 MMOL/L (136-145)
[2025-07-28 19:06] LABS: BASO # 0.1 10^3/uL (0.0-0.2); BASO % 0.8 % (0.0-1.0); EOS # 0.4 10^3/uL (0.0-0.5); EOS % 4.3 % (0.0-3.0); LYMPH # 1.4 10^3/uL (1.5-5.0); LYMPH % 16.2 % (24.0-44.0); MONO # 0.8 10^3/uL (0.0-0.8); MONO % 9.0 % (2.0-8.0); NEUTROPHILS # 5.9 10^3/uL (1.5-8.5); NEUTROPHILS % 69.3 % (36.0-66.0); PLATELET COUNT, AUTOMATED 201 10^3/uL (150-450)
== END ==
LOC: M SFHCCLAY 09:58
PROVIDERS: ATTEND Nurse Practitioner Family
DX: R00.0 Tachycardia, unspecified (principal); N39.0 Urinary tract infection, site not specified